=== PATIENT | female | born 1965 | race Caucasian/White ===

== ENCOUNTER → 2017-08-11 | Day surgery (SDC) | payer BC ==
[2017-08-04 15:06] VITALS: BMI 47.0
[~2017-08-11] VITALS: Ht 167.6 cm; Wt 131.8 kg
[~2017-08-11] MED LIST: CITA20TA9 PO; CITA40TA12 PO; HYDR50TA3 PO; LIDOCAINE HCL 2% 2 ML VIAL (20MG/ML) ONE; MIDAZOLAM HCL 1 MG/ML 2ML VIAL ONE; PANT40TA PO; PROPOFOL IV EMULSION 10 MG/ML 20 ML VIAL IV ONE; RANI150T3 PO; SODIUM CHLORIDE 0.9% 500ML 500 ML IV ONE
[2017-08-11 09:12] VITALS: Ht 167.6 cm; Wt 131.8 kg
--- NOTE | 2017-08-11 09:40 | Endo History and Physical ---
History & Physical Date of Service: Aug 11, 2017. Chief Complaint: SCREENING, GERD, DYSPHAGIA Referring Physician: DR. BARRIOS History of Present Illness Intermittent dysphagia for solids and liquids; epigastric pain; screening for colorectal cancer, average risk. Past Surgical History Hx Cardiac Surgery: No Hx Internal Defibrillator: No Hx Pacemaker: No Hx Abdominal Surgery: Yes ( X2, TUBAL LIGATION AND REVERSAL, HYSTER) Hx of Implantable Prosthesis: No Hx Post-Op Nausea and Vomiting: Yes Hx Cancer Surgery: No Hx Thoracic Surgery: No Hx Orthopedic: Yes (LOW BACK SURGERY) Hx Urinary Tract Surgery: No Family History None Social History Smoking Status: Never Smoker Hx Substance Use: No Hx Alcohol Use: No Allergies Coded Allergies: Penicillins (Verified Allergy, Unknown, RASH AND SWELLING, 08/04/17) "ALL 'CILLINS'" Sulfa Antibiotics (Verified Allergy, Unknown, RASH AND SWELLING, 08/04/17) Current Medications Reported Home Medications Medications Dose Route/Sig Max Daily Dose Days Date Category Zantac (Ranitidine HCl) 150 Mg Tab 150 Mg PO BID 08/04/17 Reported Hctz (Hydrochlorothiazide) 50 Mg Tab 50 Mg PO HS 08/04/17 Reported Protonix (Pantoprazole Sodium) 40 Mg Tab 40 Mg PO BID 08/04/17 Reported Celexa (Citalopram Hydrobromide) 40 Mg Tab 40 Mg PO HS 08/04/17 Reported Celexa (Citalopram Hydrobromide) 20 Mg Tab 20 Mg PO HS 08/04/17 Reported Vital Signs Weight (Kilograms): 131.82 Height (Feet): 5 Height (Inches): 6 Date Time Temp Pulse Resp B/P (MAP) Pulse Ox O2 Delivery O2 Flow Rate FiO2 08/11/17 09:21 36.9 78 18 145/98 (114) 97 Room Air Physical Exam General Appearance: WD/WN, no apparent distress, + obese Respiratory/Chest: Auscultation: breath sounds normal, no wheezing Cardiovascular: Heart Auscultation: RRR, no murmurs Assessment and Plan EGD and colonoscopy.
--- NOTE | 2017-08-11 10:03 | GI REPORT ---
Procedure Date: 08/11/2017 9:43 AM Procedure: Upper GI endoscopy Indications: Epigastric abdominal pain, Dysphagia Medicines: Monitored Anesthesia Care Complications: No immediate complications. Estimated blood loss: None. Estimated Blood Loss: Estimated blood loss: none. Procedure: Pre-Anesthesia Assessment: - Prior to the procedure, a History and Physical was performed, and patient medications, allergies and sensitivities were reviewed. The patient's tolerance of previous anesthesia was reviewed. - ASA Grade Assessment: II - A patient with mild systemic disease. After obtaining informed consent, the endoscope was passed under direct vision. Throughout the procedure, the patient's blood pressure, pulse, and oxygen saturations were monitored continuously. The scope was introduced through the mouth, and advanced to the third part of duodenum. The upper GI endoscopy was accomplished with ease. The patient tolerated the procedure well. Findings: No endoscopic abnormality was evident in the esophagus to explain the patient's complaint of dysphagia. It was decided, however, to proceed with dilation of the entire esophagus. A guidewire was placed and the scope was withdrawn. Dilation was performed with a Savary dilator with no resistance at 16 mm and 18 mm. The dilation site was examined following endoscope reinsertion and showed no change. The Z-line was regular and was found 37 cm from the incisors. Biopsies were taken with a cold forceps for histology. A small hiatal hernia was present. The entire examined stomach was normal. Biopsies were taken with a cold forceps for Helicobacter pylori testing. The examined duodenum was normal. Verification of patient identification for the specimens was done by the physician and nurse using the patient's name, date and medical record number. Impression: - No endoscopic esophageal abnormality to explain patient's dysphagia. Esophagus dilated to 54 Fr. - Z-line regular, 37 cm from the incisors. Biopsied. - Small hiatal hernia. - Normal stomach. Biopsied. - Normal examined duodenum. Recommendation: - Perform a colonoscopy today. Michael Fairbanks M.D. Michael Fairbanks MD 08/11/2017 10:03:09 AM This report has been signed electronically. Note Initiated On: 08/11/2017 9:43 AM I attest to the content of the Intraoperative Record and orders documented therein, exceptions below
--- NOTE | 2017-08-11 10:32 | GI REPORT ---
Procedure Date: 08/11/2017 9:58 AM Procedure: Colonoscopy Indications: Screening for colorectal malignant neoplasm Medicines: Monitored Anesthesia Care Complications: No immediate complications. Estimated blood loss: None. Estimated Blood Loss: Estimated blood loss: none. Procedure: Pre-Anesthesia Assessment: - Prior to the procedure, a History and Physical was performed, and patient medications, allergies and sensitivities were reviewed. The patient's tolerance of previous anesthesia was reviewed. - The risks and benefits of the procedure and the sedation options and risks were discussed with the patient. All questions were answered and informed consent was obtained. - ASA Grade Assessment: II - A patient with mild systemic disease. After I obtained informed consent, the scope was passed under direct vision. Throughout the procedure, the patient's blood pressure, pulse, and oxygen saturations were monitored continuously. The scope was introduced through the anus and advanced to the terminal ileum, with identification of the appendiceal orifice and IC valve. The colonoscopy was performed without difficulty. The patient tolerated the procedure well. The quality of the bowel preparation was excellent. The bowel preparation used was split dose MIralax. Findings: A 3 mm polyp was found in the rectum. The polyp was sessile. The polyp was removed with a cold snare. Resection and retrieval were complete. Multiple medium-mouthed diverticula were found in the left colon. Verification of patient identification for the specimen was done by the physician and nurse using the patient's name, date and medical record number. Impression: - One 3 mm polyp in the rectum, removed with a cold snare. Resected and retrieved. - Diverticulosis in the left colon. - The colon was otherwise normal to the terminal ileum with retroflexed views of the ascending colon and rectum. Recommendation: - Repeat colonoscopy in 5-10 years for surveillance based on pathology results. - Discharge patient to home (with escort). Michael Fairbanks M.D. Michael Fairbanks MD 08/11/2017 10:31:59 AM This report has been signed electronically. Note Initiated On: 08/11/2017 9:58 AM I attest to the content of the Intraoperative Record and orders documented therein, exceptions below
--- NOTE | 2017-08-11 10:33 | Discharge Instructions ---
Endoscopy Patient Instructions Date / Procedure(s) Performed Aug 11, 2017. Colonoscopy, EGD Allergy Information Coded Allergies: Penicillins (Verified Allergy, Unknown, RASH AND SWELLING, 08/04/17) "ALL 'CILLINS'" Sulfa Antibiotics (Verified Allergy, Unknown, RASH AND SWELLING, 08/04/17) Discharge Date / Findings Aug 11, 2017. Small colon polyp, removed; diverticulosis, small hiatal hernia; esophagus dilated to 54 Fr. Medication Instructions Restart Stopped Medication(s): Resume all medications today. Provider Instructions Activity Restrictions - No exercising or heavy lifting for 24 hours. - Do not drink alcohol the day of the procedure. - Do not drive a car or operate machinery until the day after the procedure. - Do not make any important decisions or sign important papers in 24 hours after the procedure. Following Day: - Return to full activity which may include returning to work/school. Diet Start your diet with liquids and light foods (jello, soup, juice, toast). Then eat your usual diet if not nauseated. Treatment For Common After Affects For mild abdominal pain, bloating, or excessive gas: - Rest - Eat lightly - Lie on right side Follow-Up Information Follow-up with DR. BARRIOS as scheduled Await pathology results. Anesthesia Information What You Should Know You have had a procedure that required some medicine to reduce anxiety and discomfort. This treatment is called moderate sedation. After receiving the treatment, you may be sleepy, but you will be able to breathe on your own. The effects of the treatment may last for several hours. Follow these instructions along with Activity/Diet recommendations noted above: * Do NOT do anything where dizziness or clumsiness would be dangerous. * Rest quietly at home today, then you can be up and about tomorrow. * Have a responsible person stay with you the rest of today. * You may have had an I.V. today. If so, you may take the dressing off later today. Recommendations Call your doctor if: * Trouble breathing * Continuous vomiting for more than 24 hours * Temperature above 101 degrees * Severe abdominal pain or bloating * Pain not relieved by pain medicine ordered * There is increased drainage or redness from any incision * A large amount of rectal bleeding greater than 2-3 tablespoons. (If you had a polyp/s removed or have hemorrhoids, a small amount of blood - from the rectum is to be expected.) * You have any unanswered questions or concerns. IN THE EVENT OF A SERIOUS EMERGENCY, GO TO THE NEAREST EMERGENCY ROOM Your discharge instructions were prepared by provider Michael Fairbanks. Patient Instructions Signature Page Pat Malik Patient (or Guardian) Signature/Date: I have read and understand the instructions given to me by my caregivers. Caregiver/RN/Doctor Signature/Date: The above-named patient and/or guardian has received patient instructions on this date. + Original Patient Signature Page (only) stays with chart. Please make copy for patient.
[2017-08-11 10:45] VITALS: BP 119/74; PULSE 72; O2SAT 95
--- NOTE | 2017-08-11 11:21 | Anesthesiology Progress Note ---
Anesthesia Post Op Note Date & Time Aug 11, 2017 at 11:21 Vital Signs Pain Intensity: 0 Vital Signs Past 12 Hours Date Time Temp Pulse Resp B/P (MAP) Pulse Ox O2 Delivery O2 Flow Rate FiO2 08/11/17 10:45 72 18 119/74 (89) 95 Room Air 08/11/17 10:30 78 16 101/69 (80) 96 Room Air 08/11/17 09:21 36.9 78 18 145/98 (114) 97 Room Air Notes Mental Status: alert / awake / arousable, participated in evaluation Pt Amnestic to Procedure: Yes Nausea / Vomiting: adequately controlled Pain: adequately controlled Airway Patency, RR, SpO2: stable & adequate BP & HR: stable & adequate Hydration State: stable & adequate Anesthetic Complications: no major complications apparent
== END | disposition home or self-care (01) ==
LOC: C.GI 08:36
PROVIDERS: ATTEND Internal Medicine Gastroenterology
DX: Z12.11 Encounter for screening for malignant neoplasm of colon (principal); R10.13 Epigastric pain; K62.1 Rectal polyp; K57.30 Diverticulosis of large intestine without perforation or abscess without bleeding; R13.10 Dysphagia, unspecified; K44.9 Diaphragmatic hernia without obstruction or gangrene; E66.01 Morbid (severe) obesity due to excess calories; Z68.42 Body mass index [BMI] 45.0-49.9, adult; Z79.899 Other long term (current) drug therapy; Z88.2 Allergy status to sulfonamides; Z88.0 Allergy status to penicillin; Z98.51 Tubal ligation status; Z90.710 Acquired absence of both cervix and uterus; Z98.890 Other specified postprocedural states

== ENCOUNTER 2025-04-03 16:49 | Observation (INO) ==
--- NOTE | 2025-04-03 17:33 | Emergency Department Note ---
Impression & Plan Peritonitis, Chronic renal failure, Leukocytosis, Elevated lactic acid level, Abnormal abdominal CT scan ED Provider Note NAME: NURYS CRAMER AGE: 60 SEX: F : 1965 ARRIVES VIA: Walk-In INFORMANT: [Patient] ED PROVIDER(S): [Mendoza Wagner MD] CHIEF COMPLAINT: Abnormal laboratories HISTORY OF PRESENT ILLNESS: The patient is a 60-year-old female who had a peritoneal dialysis catheter placed at the same time she had an abdominal wall hernia repaired. She has not yet started peritoneal dialysis. Patient 2 days ago had cultures taken from her peritoneal dialysis catheter, she grew Enterococcus. She is currently on an antibiotic and an antifungal--she has been for over a week. Because of the positive results, was referred to the ED for admission and IV antibiotic therapy. The patient does not have any fever or chills or cough or congestion. She has no abdominal pain. No burning with urination. PMHx/PSHx/Social Hx: See Below PHYSICAL EXAM: GENERAL: Patient is in no acute distress. HEENT: No acute trauma, normocephalic atraumatic, mucous membranes moist, no nasal congestion. NECK: No stridor, no adenopathy, no meningismus, trachea is midline. LUNGS: Clear to auscultation bilaterally, no wheeze, no rhonchi, breath sounds equal. HEART: Without murmurs gallops or rubs, regular rate and rhythm. ABDOMEN: Soft, nontender, no peritonitis. There is a peritoneal catheter in place. There is a healing surgical wound across the mid lower left abdomen without signs of infection or cellulitis. EXTREMITIES: No cyanosis, full range of motion of all the joints without pain or difficulty. NEUROLOGIC: Oriented x 3, no acute motor or sensory deficits, no focal weakness. SKIN: No jaundice, no diaphoresis. DIFFERENTIAL DIAGNOSIS: Peritonitis, bacteremia, UTI, renal failure, among others. EMERGENCY DEPARTMENT PROCEDURES: MEDICAL DECISION MAKING: There is a moderate leukocytosis, this of course could be consistent with infection. The patient has a very subtle anemia with a hemoglobin of 11.2. There is a normal platelet count. No bandemia. No coagulopathy. There is evidence for chronic renal failure with creatinine 4.2. No electrolyte abnormality in need of emergent correction. Lactic acid level is elevated at 4.5, this could be consistent with infection or, her renal disease. There was no worrisome liver enzyme elevation. Urinalysis does not show infection. ECG shows a sinus rhythm, no ischemia. Cardiac enzyme testing x 1 is not consistent with acute cardiac injury. Chest x-ray does not show pneumonia or CHF. Abdominal and pelvis CT shows the peritoneal dialysis catheter to be in place. No significant ascites. There was a renal mass seen for which further imaging was advised. She did have a potential small abscess across the anterior abdominal wall. On exam, the patient was not febrile or toxic. She had no abdominal pain. The patient was not given any IV fluids as, she has chronic renal failure and, cannot tolerate an excess amount of fluid. She is soon to be started on dialysis. The sepsis 30 cc/kg saline recommendation was not given because of concerns for progression to heart failure. The patient presents with positive cultures from her peritoneal dialysis catheter. She is already on oral antibiotics and antifungals. Given the circumstances, admission was recommended for IV antibiotic therapy and further workup. I spoke with the patient and family. I did speak with case management. The on- call hospitalist was consulted. Prior/Outside records/notes reviewed: None ECG per my interpretation: Indication was potential sepsis. The ECG shows a normal sinus rhythm with a rate of 89. There is no ST elevation, no PVC. QTc is 467. Continuous Cardiac Monitoring per my interpretation: An order was placed for continuous cardiac monitoring. The monitor shows a rate of 86 with normal sinus rhythm. Imaging/x-ray results per my interpretation: Chest x-ray does not show CHF or pneumonia. Chronic Medical/Social conditions affecting care: Currently undergoing workup for the need for peritoneal dialysis. Care/Management discussed with: Case management, the on-call hospitalist. Level of care consideration(s): After review of the information above and other included data: --I believe the patient requires escalation of care to admission DISPOSITION: Admission Past Med/Surg History Problem List (Updated 04/03/25 @ 23:26 by Mendoza Wagner MD) Abnormal abdominal CT scan (Acute) Elevated lactic acid level (Acute) Leukocytosis (Acute) Chronic renal failure (Acute) Peritonitis (Acute) Medical History HTN (hypertension) ESRD (end stage renal disease) Anxiety and depression Temporal giant cell arteritis Dyslipidemia CKD (chronic kidney disease), stage IV Surgical History History of hernia repair History of esophagogastroduodenoscopy (EGD) Family History Other Cancer Diabetes Social History Smoking Status: Never smoker Hx Alcohol Use: No Hx Substance Use: No Preferred Language: Kyrgyz Communication Ability: Effective Medical Examiner Required: No Beliefs That Will Affect Care: None Current Living Situation: Spouse Current Living Situation Comment: home with Other Information That Helps Us Care for You: No Feels Safe at Home: Yes Safety Concerns: Feels Safe At This Time Assistive Devices: Glasses Allergies Allergies Allergy/AdvReac Type Severity Reaction Status Date / Time Sulfa (Sulfonamide Allergy Severe EDEMA OF Verified 04/03/25 17:54 Antibiotics) AIRWAY Penicillins Allergy Intermediate RASH AND Verified 04/03/25 17:54 SWELLING Home Meds Home Medications Medication Instructions Recorded Confirmed allopurinol 100 mg tablet 200 mg PO DAILY 04/03/25 04/03/25 atorvastatin 20 mg tablet 20 mg PO DAILY 04/03/25 04/03/25 atovaquone 750 mg/5 mL oral 1,500 mg PO QAM 04/03/25 04/03/25 suspension calcium acetate(phosphat bind) 667 1,334 mg PO TIDM 04/03/25 04/03/25 mg capsule cholecalciferol (vitamin D3) 25 25 mcg PO DAILY 04/03/25 04/03/25 mcg (1,000 unit) capsule (Vitamin D3) citalopram 40 mg tablet (Celexa) 40 mg PO DAILY 04/03/25 04/03/25 clindamycin HCl 150 mg capsule 450 mg PO TID 04/03/25 04/03/25 famotidine 20 mg tablet 20 mg PO Q OTHER DAY 04/03/25 04/03/25 folic acid 1 mg tablet 1 mg PO DAILY 04/03/25 04/03/25 gabapentin 300 mg capsule 300 mg PO DAILY 04/03/25 04/03/25 lansoprazole 30 mg capsule,delayed 30 mg PO DAILYBB 04/03/25 04/03/25 release (Prevacid) lorazepam 0.5 mg tablet 0.5 mg PO HS PRN Anxiety 04/03/25 04/03/25 nystatin 100,000 unit/mL oral 5 ml mucous membrane QID 04/03/25 04/03/25 suspension ondansetron 4 mg disintegrating 4 mg PO Q8H PRN NAUSEA/VOMITING 04/03/25 04/03/25 tablet prednisone 10 mg tablet 30 mg PO DAILY 04/03/25 04/03/25 prednisone 5 mg tablet 5 mg PO DAILY 04/03/25 04/03/25 timolol maleate 0.5 % eye drops 1 drp OPB BID 04/03/25 04/03/25 tocilizumab 162 mg/0.9 mL 162 mg subcut WK 04/03/25 04/03/25 subcutaneous pen injector (Actemra ACTPen) torsemide 100 mg tablet 100 mg PO QAM 04/03/25 04/03/25 Results & Data (ED) Vital Signs Vital Signs - 24 hr 04/03/25 16:53 04/03/25 17:23 04/03/25 17:25 Pulse Rate 86 84 Respiratory Rate 20 16 Blood Pressure 151/88 H 129/87 Blood Pressure Mean 109 116 Blood Pressure Position Sitting Pulse Oximetry 98 97 96 Oxygen Delivery Method Room Air Room Air Room Air Sepsis Recent Fever Within 48 Hours No Sepsis New/Unexplained Change in Mental Status No Sepsis Action Taken by Nursing No Action Required 04/03/25 17:30 04/03/25 17:36 04/03/25 17:45 Pulse Rate 84 84 78 Respiratory Rate 16 16 Blood Pressure 156/88 H 144/85 H Blood Pressure Mean 100 106 Blood Pressure Position Pulse Oximetry 97 95 Oxygen Delivery Method Room Air Room Air Sepsis Recent Fever Within 48 Hours Sepsis New/Unexplained Change in Mental Status Sepsis Action Taken by Nursing 04/03/25 18:00 04/03/25 18:15 04/03/25 18:27 Pulse Rate 76 75 75 Respiratory Rate 18 16 16 Blood Pressure 116/84 133/87 140/94 Blood Pressure Mean 100 111 108 Blood Pressure Position Pulse Oximetry 95 95 95 Oxygen Delivery Method Room Air Room Air Room Air Sepsis Recent Fever Within 48 Hours Sepsis New/Unexplained Change in Mental Status Sepsis Action Taken by Usp Medications Current Medication List: was personally reviewed by me Laboratory Data Attestation: I reviewed the patient's lab results. 04/03/25 17:27 04/03/25 17:27 Lab Results 04/03/25 Range/Units 17:27 WBC 17.44 H (4.8-10.8) K/ul RBC 3.49 L (4.20-5.40) M/uL Hgb 11.2 L (12.0-16.0) g/dl Hct 34.0 L (37.0-47.0) % MCV 97.4 (80.0-100.0) fL MCH 32.1 (25.0-34.0) pg MCHC 32.9 (32.0-36.0) g/dL RDW Std Deviation 49.3 H (36.4-46.3) fL RDW Coeff of Kylah 14.1 (11.5-14.5) % Plt Count 243 (130-400) K/uL MPV 12.4 (9.4-12.4) fL Immature Gran % (Auto) 0.5 % Neut % (Auto) 85.0 % Lymph % (Auto) 12.3 % [place] % (Auto) 2.1 % Eos % (Auto) 0.0 % Baso % (Auto) 0.1 % Neut # (Auto) 14.81 H (1.40-6.50) K/uL Lymph # (Auto) 2.15 (1.20-3.40) K/uL [place] # (Auto) 0.37 (0.11-0.59) K/uL Eos # (Auto) 0.00 (0.00-0.50) K/uL Baso # (Auto) 0.02 (0.00-0.20) K/uL Immature Gran # (Auto) 0.09 (0.01-0.20) K/uL PT 10.8 (9.0-12.0) Seconds INR 1.0 (0.9-1.1) APTT 23 (21-31) Seconds PTT Ratio 0.8 Sodium 140 (136-145) mmol/L Potassium 3.9 (3.5-5.1) mmol/L Chloride 102 (98-107) mmol/L Carbon Dioxide 20 L (21-32) mmol/L Anion Gap 18 H (3-11) BUN 101 H (6-23) mg/dl Creatinine 4.20 H (0.6-1.2) mg/dl Est Cr Clr Drug Dosing 19.4 ml/min eGFR 11.38 BUN/Creatinine Ratio 24.0 H (10-20) Glucose 148 H (70-99(Fasting)) mg/dl Lactate 4.5 H* (0.4-2.0) mmol/L Calcium 8.6 (8.6-10.3) mg/dl Magnesium 2.3 (1.7-2.4) mg/dl Total Bilirubin 0.3 (0.2-1.0) mg/dl AST 8 L (13-39) U/L ALT 12 (7-52) U/L Alkaline Phosphatase 84 (34-104) U/L Troponin I High Sens 8.3 (0-14) pg/ml Total Protein 7.7 (6.0-8.3) gm/dl Albumin 3.9 (3.4-5.0) gm/dl Globulin 3.8 (2.5-4.0) gm/dl Albumin/Globulin Ratio 1.0 (0.9-2) Procalcitonin 0.17 (0-0.5) ng/ml Administered Medications Daptomycin 600 mg/ Syringe 12 mls @ 6 mls/min IV Q48H AWA; Protocol Stop: 04/13/25 19:29 Last Admin: 04/03/25 19:40 Dose: 6 mls/min Documented By: ELBA Aztreonam 2,000 mg/ Dextrose 100 mls @ 100 mls/hr IV Q12H AWA; Protocol Stop: 04/13/25 19:29 Last Infusion: 04/03/25 20:49 Dose: Infused Documented By: Admin: 04/03/25 19:40 Dose: 100 mls/hr Documented By: ELBA Lorazepam (Lorazepam 0.5 Mg Tab) 0.5 mg PO HS PRN PRN Reason: Anxiety Stop: 05/03/25 21:40 Last Admin: 04/03/25 22:34 Dose: 0.5 mg Documented By: CHIP Nystatin (Nystatin Susp 500,000 U/5 Ml Udc) 5 ml PO QID AWA Stop: 04/13/25 21:40 Last Admin: 04/03/25 22:33 Dose: 5 ml Documented By: CHIP Timolol Maleate (Timolol Maleate 0.5% Op Soln 5 Ml Btl) 1 drops OPB BID AWA Stop: 05/03/25 21:40 Last Admin: 04/03/25 22:33 Dose: 1 drops Documented By: CHIP Discontinued Medications Labetalol HCl (Labetalol Hcl Iv 5 Mg/Ml 20ml) 5 mg IV NOW STA Stop: 04/03/25 22:07 Last Admin: 04/03/25 22:34 Dose: 5 mg Documented By: CHIP Imaging Data Radiologist's Impression: Chest X-Ray 04/03/25 17:00 Technique: A frontal view of the chest was obtained Findings: There are no confluent pulmonary infiltrates. The heart size is within normal limits. No pleural effusion or pneumothorax is seen. There is no definite pulmonary nodule. No fracture is noted. No foreign body is seen Impression: No active disease Electronically signed by Heriberto Laurent 04-03-2025 6:01 PM Abdomen/Pelvis CT 04/03/25 18:01 Clinical History: Peritoneal dialysis catheter infection Technique: Axial computed tomography images were obtained of the abdomen and pelvis without intravenous contrast. Findings: The liver is overall of normal size, attenuation, and contour with no sign of cirrhosis or significant fatty infiltration. No definite liver mass lesion is seen on this noncontrast study. The gallbladder has been removed. No bile duct dilatation is noted. The spleen is of normal size. No focal splenic lesion is evident. The pancreas appears normal with no sign of acute or chronic pancreatitis and no mass lesion noted. The pancreatic duct is of normal caliber. The adrenal glands appear unremarkable. No renal or proximal ureteral calculi are seen. There is no hydronephrosis or perinephric stranding. There is a 2.5 cm mass of the right kidney that is predominantly soft tissue attenuation but has some fat content, suggestive of an angiomyolipoma. There is a 1.8 cm hyperdense right renal lesion and there is a suspected 2.6 cm hyperdense left renal lesion The aorta is of normal caliber. No abdominal adenopathy is seen. There is a 3 x 1.5 cm collection of fluid and air in the anterior abdominal wall, suggestive of an abscess The stomach appears normal. There is no sign of small bowel obstruction. There is diverticulosis without evidence of diverticulitis. There is no sign of appendicitis. No free intraperitoneal fluid or air is identified. There is a peritoneal dialysis catheter. No distal ureteral or bladder calculi are seen. No obvious bladder mass lesion is evident. The iliac arteries are of normal caliber. No pelvic adenopathy is noted. The uterus has been removed There is a small left pleural effusion. There is subsegmental atelectasis in both lower lobes. Mild thoracolumbar degenerative disc disease is seen. There are apparent old fractures of the inferior pubic rami bilaterally. No focal osseous lesion is seen Impression: 1. 3 x 1.5 cm suspected soft tissue abscess in the anterior abdominal wall 2. Peritoneal dialysis catheter. No ascites or intra-peritoneal fluid collection is seen 3. Right renal mass that may represent an angiomyolipoma. There are also bilateral hyperdense renal lesions that may represent proteinaceous or hemorrhagic cysts but are indeterminate in nature. Renal protocol abdominal CT or MRI with and without contrast could be obtained for further evaluation 4. Diverticulosis without evidence of diverticulitis 5. Small left pleural effusion ACT 112: Positive. There are findings on this exam that require communication between the performing entity and the patient following Patient Test Result Information Act ([place] ACT 112) guidelines. Electronically signed by Heriberto Laurent 04-03-2025 6:41 PM Discharge Plan Visit Data Chief Complaint: Urinary Symptoms Stated Complaint: KIDNEY BACTERIA ED Provider: Mendoza Wagner Discharge Problem: Peritonitis, Chronic renal failure, Leukocytosis, Elevated lactic acid level, Abnormal abdominal CT scan Patient Disposition: Admitted As Inpatient Condition: Fair Discharge Instructions Interventions: ED Discharge Assessment Last Done: 04/03/25 21:00 Discharge Problem: Chronic renal failure Qualifiers: Chronic kidney disease stage: unspecified stage Qualified Code(s): N18.9 - Chronic kidney disease, unspecified Leukocytosis Qualifiers: Leukocytosis type: unspecified Qualified Code(s): D72.829 - Elevated white blood cell count, unspecified
[2025-04-03 17:39] LABS: Hematocrit (blood only) 34.0 % (37.0-47.0); Hemoglobin 11.2 g/dl (12.0-16.0); Immature Granulocytes # (auto) 0.09 K/uL (0.01-0.20); Immature Granulocytes % (auto) 0.5 %; Mean Corpuscular Hemoglobin 32.1 pg (25.0-34.0); Mean Corpuscular Volume 97.4 fL (80.0-100.0); Platelet Count 243 K/uL (130-400); RDW Standard Deviation 49.3 fL (36.4-46.3); Red Blood Count 3.49 M/uL (4.20-5.40); White Blood Count 17.44 K/ul (4.8-10.8)
[2025-04-03 17:58] LABS: Chloride 102.0 mmol/L (98-107); Potassium 3.9 mmol/L (3.5-5.1); Sodium 140.0 mmol/L (136-145)
[2025-04-03 17:59] LABS: Alanine Aminotransferase 12.0 U/L (7-52); Albumin Globulin Ratio 1.0 (0.9-2); Albumin Level 3.9 gm/dl (3.4-5.0); Alkaline Phosphatase 84.0 U/L (34-104); Anion Gap 18.0 (3-11); Bilirubin,Total 0.3 mg/dl (0.2-1.0); Blood Urea Nitrogen 101.0 mg/dl (6-23); Calcium 8.6 mg/dl (8.6-10.3); Carbon Dioxide 20.0 mmol/L (21-32); Creatinine Clr Calc Pharmacy 19.4 ml/min; Globulin 3.8 gm/dl (2.5-4.0); Glucose 148.0 mg/dl (70-99(Fasting)); Magnesium 2.3 mg/dl (1.7-2.4); Total Protein 7.7 gm/dl (6.0-8.3)
--- NOTE | 2025-04-03 18:01 | XRay Report ---
Technique: A frontal view of the chest was obtained Findings: There are no confluent pulmonary infiltrates. The heart size is within normal limits. No pleural effusion or pneumothorax is seen. There is no definite pulmonary nodule. No fracture is noted. No foreign body is seen Impression: No active disease Electronically signed by Heriberto Laurent 04-03-2025 6:01 PM
[2025-04-03 18:10] LABS: INR 1.0 (0.9-1.1); Partial Thromboplastin Time 23 Seconds (21-31); Prothrombin Time 10.8 Seconds (9.0-12.0)
--- NOTE | 2025-04-03 18:38 | History & Physical Report ---
Date of Service April 03, 2025 Assessment & Plan (1) Leukocytosis: (2) Peritonitis: Plan: #Concern for Peritonitis #ESRD #Peritoneal dialysis catheter Patient is 60 year old female with PMH ESRD, not on dialysis yet, HTN, HLD, gout, GERD, giant cell arteritis, anxiety, depression, morbid obesity and others listed below presented to ER with concern for peritoneal infection. 03/20/25 had laparoscopic Insertion Intraperitoneal Catheter and umbilical Hernia Repair at [facility]. Later in her course peritoneal nurse had found that patient was found to be missing cap from her PD catheter postsurgery and it was uncertain how long this was displaced. Patient was seen at [facility] ER 03/25/25 and general surgery was consulted and felt patient did not require any interventions or intraperitoneal antibiotics at that time. 03/25/2025 Nephrology, Dr. Moreland recommended oral clindamycin, nystatin. Pt noted to have purulent drainage at PD cath exit site 04/01/2025 PD cath exit site culture +moderate Enterococcus species, few gram- negative bacilli 04/02/25 outpatient general surgery visit with Dr Ramiro Cooney felt pt doing well Today in In ER WBC: 17, lactate: 4.5-->1.2 without any IVF or other medications given. UA unremarkable Pt denies fever/chills, N/V/D, abdominal pain Today I Spoke with Dr. Cooney on phone regarding patient. She recommends Discontinuing prior clindamycin. Recommends continuing nystatin. Recommends az treonam and daptomycin IV today. She plans to start peritoneal antibiotics tomorrow. She requests CT abdomen pelvis CT abd/pelvis pending Continue renal meds, torsemide CBC, BMP in am #Temporal arteritis On prolonged prednisone taper Currently on 35 mg daily, will decrease to 30 mg daily on 04/08/25 x 1 week followed by 25 mg daily x 1 week and continue to taper. (If pt here prolonged time will need to adjust prednisone dosing in hospital system) To be on Actemra once weekly PCP prophylaxis and on atovaquone # Dyslipidemia Hold atorvastatin while on daptomycin # GERD Continue PPI # Gout Continue allopurinol # Anxiety and depression continue citalopram DVT Prophylaxis SCDs for now Admit med tele Full Code as per discussion with pt Follows with Maida Ocampo PA-C for routine care Pt was seen and care coordinated with Dr Grimm. See addendum I spent a total of 72 minutes reviewing notes, outpatient records, labs, medication, coordinating, documenting and providing care for this patient excluding time spent in the performance of separately billed services and excluding time spent by another provider/QHP. History of Present Illness Chief Complaint: Sent in for evaluation by nephrology Primary Care Provider: Veronica Lerner PA-C Patient is 60 year old female with PMH ESRD, not on dialysis yet, HTN, HLD, gout, GERD, giant cell arteritis, anxiety, depression, morbid obesity and others listed below presented to ER with concern for peritoneal infection. Per chart review on 03/20/25 had laparoscopic Insertion Intraperitoneal Catheter and umbilical Hernia Repair at [facility]. Later in her course peritoneal nurse had found that patient was found to be missing cap from her PD catheter postsurgery and it was uncertain how long this was displaced. Patient was seen at [facility] ER 03/25/25 and general surgery was consulted and felt patient did not require any interventions or intraperitoneal antibiotics at that time. Per outpatient nephrology note on 03/25/2025 Dr. Moreland recommended oral clindamycin, nysta tin. Patient was sent to hospital today with concern for positive culture of purulent drainage from PD cath site. History of giant cell arteritis and is currently on prolonged steroid taper and patient is on PCP prophylaxis as well. Per outpatient chart review patient seen general surgery office at [facility], Dr. Ramiro Cooney on 04/02/2025. Patient reports still makes urine. Denies hematuria, dysuria, urinary frequency. Denies fever/chills, diaphoresis, N/V/D/C, AYERS, dizziness, CP, SOB, orthopnea, palpitations, cough, sore throat, rhinorrhea, abdominal pain, weakness, extremity edema, rashes, urinary symptoms. Allergies Allergy/AdvReac Type Severity Reaction Status Date / Time Sulfa (Sulfonamide Allergy Severe EDEMA OF Verified 04/03/25 17:54 Antibiotics) AIRWAY Penicillins Allergy Intermediate RASH AND Verified 04/03/25 17:54 SWELLING Home Medications Medication Instructions Recorded Confirmed Type allopurinol 100 mg tablet 200 mg PO DAILY 04/03/25 04/03/25 History atorvastatin 20 mg tablet 20 mg PO DAILY 04/03/25 04/03/25 History atovaquone 750 mg/5 mL oral 1,500 mg PO QAM 04/03/25 04/03/25 History suspension calcium acetate(phosphat bind) 667 1,334 mg PO TIDM 04/03/25 04/03/25 History mg capsule cholecalciferol (vitamin D3) 25 25 mcg PO DAILY 04/03/25 04/03/25 History mcg (1,000 unit) capsule (Vitamin D3) citalopram 40 mg tablet (Celexa) 40 mg PO DAILY 04/03/25 04/03/25 History clindamycin HCl 150 mg capsule 450 mg PO TID 04/03/25 04/03/25 History famotidine 20 mg tablet 20 mg PO Q OTHER DAY 04/03/25 04/03/25 History folic acid 1 mg tablet 1 mg PO DAILY 04/03/25 04/03/25 History gabapentin 300 mg capsule 300 mg PO DAILY 04/03/25 04/03/25 History lansoprazole 30 mg capsule,delayed 30 mg PO DAILYBB 04/03/25 04/03/25 History release (Prevacid) lorazepam 0.5 mg tablet 0.5 mg PO HS PRN Anxiety 04/03/25 04/03/25 History nystatin 100,000 unit/mL oral 5 ml mucous membrane QID 04/03/25 04/03/25 History suspension ondansetron 4 mg disintegrating 4 mg PO Q8H PRN NAUSEA/VOMITING 04/03/25 04/03/25 History tablet prednisone 10 mg tablet 30 mg PO DAILY 04/03/25 04/03/25 History prednisone 5 mg tablet 5 mg PO DAILY 04/03/25 04/03/25 History timolol maleate 0.5 % eye drops 1 drp OPB BID 04/03/25 04/03/25 History tocilizumab 162 mg/0.9 mL 162 mg subcut WK 04/03/25 04/03/25 History subcutaneous pen injector (Actemra ACTPen) torsemide 100 mg tablet 100 mg PO QAM 04/03/25 04/03/25 History Past Med/Surg History Problem List S/P hernia repair Bilateral renal masses Peritonitis associated with peritoneal dialysis Abnormal abdominal CT scan (Acute) Elevated lactic acid level (Acute) Leukocytosis (Acute) Chronic renal failure (Acute) Peritonitis (Acute) Medical History HTN (hypertension) ESRD (end stage renal disease) Anxiety and depression Temporal giant cell arteritis Dyslipidemia CKD (chronic kidney disease), stage IV Surgical History History of hernia repair History of esophagogastroduodenoscopy (EGD) Family History Other Cancer Diabetes Social History Smoking Status: Never smoker Hx Alcohol Use: No Hx Substance Use: No Preferred Language: Uzbek Communication Ability: Effective Lighthouse Keeper Required: No Beliefs That Will Affect Care: None Current Living Situation: Spouse Current Living Situation Comment: home with Other Information That Helps Us Care for You: No Feels Safe at Home: Yes Safety Concerns: Feels Safe At This Time Assistive Devices: Glasses Review of Systems Review of Systems: All systems reviewed & are unremarkable except as noted in HPI & below Physical Exam Physical Exam: General: no distress, obese Head: normocephalic, atraumatic Eyes: conjunctiva non-injected, anicteric ENT: normal inspection external ears, nose, mucous membranes moist Neck: supple, trachea midline, non-tender Lungs: clear, no respiratory distress, no wheezing/rhonchi/rales CV: RRR, no murmur, no pretibial edema Abd: protuberant, +PD cath site with dressing in place, +incision abdomen without erythema, normal BS, soft, non-tender Ext: no cyanosis, no calf tenderness Neuro: A&O x 3, no focal deficits noted, normal affect Skin: warm, dry Results & Data Results & Data Vital Signs (Past 12 Hours) Vital Signs Pulse Resp BP Pulse Ox O2 Del Method 04/03/25 18:27 75 16 140/94 95 Room Air 04/03/25 18:15 75 16 133/87 95 Room Air 04/03/25 18:00 76 18 116/84 95 Room Air 04/03/25 17:45 78 16 144/85 H 95 Room Air 04/03/25 17:36 84 04/03/25 17:30 84 16 156/88 H 97 Room Air 04/03/25 17:25 96 Room Air 04/03/25 17:23 84 16 129/87 97 Room Air 04/03/25 16:53 86 20 151/88 H 98 Room Air Laboratory Results 04/03/25 04/03/25 04/03/25 Range/Units 19:07 19:03 17:27 WBC 17.44 H (4.8-10.8) K/ul RBC 3.49 L (4.20-5.40) M/uL Hgb 11.2 L (12.0-16.0) g/dl Hct 34.0 L (37.0-47.0) % MCV 97.4 (80.0-100.0) fL MCH 32.1 (25.0-34.0) pg MCHC 32.9 (32.0-36.0) g/dL RDW Std Deviation 49.3 H (36.4-46.3) fL RDW Coeff of [place] 14.1 (11.5-14.5) % Plt Count 243 (130-400) K/uL MPV 12.4 (9.4-12.4) fL Immature Gran % (Auto) 0.5 % Neut % (Auto) 85.0 % Lymph % (Auto) 12.3 % [place] % (Auto) 2.1 % Eos % (Auto) 0.0 % Baso % (Auto) 0.1 % Neut # (Auto) 14.81 H (1.40-6.50) K/uL Lymph # (Auto) 2.15 (1.20-3.40) K/uL [place] # (Auto) 0.37 (0.11-0.59) K/uL Eos # (Auto) 0.00 (0.00-0.50) K/uL Baso # (Auto) 0.02 (0.00-0.20) K/uL Immature Gran # (Auto) 0.09 (0.01-0.20) K/uL PT 10.8 (9.0-12.0) Seconds INR 1.0 (0.9-1.1) APTT 23 (21-31) Seconds PTT Ratio 0.8 Sodium 140 (136-145) mmol/L Potassium 3.9 (3.5-5.1) mmol/L Chloride 102 (98-107) mmol/L Carbon Dioxide 20 L (21-32) mmol/L Anion Gap 18 H (3-11) BUN 101 H (6-23) mg/dl Creatinine 4.20 H (0.6-1.2) mg/dl Est Cr Clr Drug Dosing 19.4 ml/min eGFR 11.38 BUN/Creatinine Ratio 24.0 H (10-20) Glucose 148 H (70-99(Fasting)) mg/dl Lactate 1.2 4.5 H* (0.4-2.0) mmol/L Calcium 8.6 (8.6-10.3) mg/dl Magnesium 2.3 (1.7-2.4) mg/dl Total Bilirubin 0.3 (0.2-1.0) mg/dl AST 8 L (13-39) U/L ALT 12 (7-52) U/L Alkaline Phosphatase 84 (34-104) U/L Troponin I High Sens 8.3 (0-14) pg/ml Total Protein 7.7 (6.0-8.3) gm/dl Albumin 3.9 (3.4-5.0) gm/dl Globulin 3.8 (2.5-4.0) gm/dl Albumin/Globulin Ratio 1.0 (0.9-2) Procalcitonin 0.17 (0-0.5) ng/ml Urine Color Yellow Urine Appearance Clear (Clear) Urine pH 5.5 (4.5-7.5) Ur Specific [place] 1.013 (1.000-1.030) Urine Protein Negative (Negative) Urine Glucose (UA) Negative (Negative) Urine Ketones Negative (Negative) Urine Blood Negative (Negative) Urine Nitrite Negative (Negative) Urine Bilirubin Negative (Negative) Urine Urobilinogen Negative (Negative) Ur Leukocyte Esterase Negative (Negative) Urine Comment Diagnostic Findings Chest X-Ray 04/03/25 17:00 Technique: A frontal view of the chest was obtained Findings: There are no confluent pulmonary infiltrates. The heart size is within normal limits. No pleural effusion or pneumothorax is seen. There is no definite pulmonary nodule. No fracture is noted. No foreign body is seen Impression: No active disease Electronically signed by Heriberto Laurent 04-03-2025 6:01 PM Abdomen/Pelvis CT 04/03/25 18:01 Clinical History: Peritoneal dialysis catheter infection Technique: Axial computed tomography images were obtained of the abdomen and pelvis without intravenous contrast. Findings: The liver is overall of normal size, attenuation, and contour with no sign of cirrhosis or significant fatty infiltration. No definite liver mass lesion is seen on this noncontrast study. The gallbladder has been removed. No bile duct dilatation is noted. The spleen is of normal size. No focal splenic lesion is evident. The pancreas appears normal with no sign of acute or chronic pancreatitis and no mass lesion noted. The pancreatic duct is of normal caliber. The adrenal glands appear unremarkable. No renal or proximal ureteral calculi are seen. There is no hydronephrosis or perinephric stranding. There is a 2.5 cm mass of the right kidney that is predominantly soft tissue attenuation but has some fat content, suggestive of an angiomyolipoma. There is a 1.8 cm hyperdense right renal lesion and there is a suspected 2.6 cm hyperdense left renal lesion The aorta is of normal caliber. No abdominal adenopathy is seen. There is a 3 x 1.5 cm collection of fluid and air in the anterior abdominal wall, suggestive of an abscess The stomach appears normal. There is no sign of small bowel obstruction. There is diverticulosis without evidence of diverticulitis. There is no sign of appendicitis. No free intraperitoneal fluid or air is identified. There is a peritoneal dialysis catheter. No distal ureteral or bladder calculi are seen. No obvious bladder mass lesion is evident. The iliac arteries are of normal caliber. No pelvic adenopathy is noted. The uterus has been removed There is a small left pleural effusion. There is subsegmental atelectasis in both lower lobes. Mild thoracolumbar degenerative disc disease is seen. There are apparent old fractures of the inferior pubic rami bilaterally. No focal osseous lesion is seen Impression: 1. 3 x 1.5 cm suspected soft tissue abscess in the anterior abdominal wall 2. Peritoneal dialysis catheter. No ascites or intra-peritoneal fluid collection is seen 3. Right renal mass that may represent an angiomyolipoma. There are also bilateral hyperdense renal lesions that may represent proteinaceous or hemorrhagic cysts but are indeterminate in nature. Renal protocol abdominal CT or MRI with and without contrast could be obtained for further evaluation 4. Diverticulosis without evidence of diverticulitis 5. Small left pleural effusion ACT 112: Positive. There are findings on this exam that require communication between the performing entity and the patient following Patient Test Result Information Act ([place] ACT 112) guidelines. Electronically signed by Heriberto Laurent 04-03-2025 6:41 PM Medications Administered Current Inpatient Medications Daptomycin 600 mg/ Syringe 12 mls @ 6 mls/min IV Q48H [facility]; Protocol Stop: 04/13/25 19:29 Last Admin: 04/03/25 19:40 Dose: 6 mls/min Aztreonam 2,000 mg/ Dextrose 100 mls @ 100 mls/hr IV Q12H [facility]; Protocol Stop: 04/13/25 19:29 Last Admin: 04/03/25 19:40 Dose: 100 mls/hr Supervising Physician Co-Signing Physician Notes Pt seen and examined by me, care coordinated w/ JAlexandria Chua PA-C, pls refer to her note above for further detail. Pt is 60 yo F w/ ESRD, not on dialysis yet, HTN, HLD, gout, GERD, giant cell arteritis, anxiety, depression, morbid obesity presents with concern for peritoneal infection. Per chart review on 03/20/25 had laparoscopic Insertion Intraperitoneal Catheter and umbilical Hernia Repair at [facility]. Later in her course peritoneal nurse had found that patient was found to be missing cap from her PD catheter postsurgery and it was uncertain how long this was displaced. Patient was seen at [facility] ER 03/25/25 and general surgery was consulted and felt patient did not require any interventions or intraperitoneal antibiotics at that time. Per outpatient nephrology note on 03/25/2025 Dr. Moreland recommended oral clindamycin, nystatin. Patient was sent to hospital today. Discussed with Dr. Moreland on phone - she recommends obtaining CT abd/pelvis w/o contrast, discontinuing prior clindamycin. Recommends continuing nystatin. Recommends aztreonam and daptomycin IV today - discussed appropriate dose w/ pharmacy. In ER found to have elevated WBC, also has hx of giant cell arteritis and is currently on steroid taper. Also found to have elevated lactate of 4.5, which was normal at 1.2 on repeat, without any intervention. Currently pt is sitting up in bed in NAD, she is awake, alert, oriented , answers appropriately. Overall says she feels well. Denies any fevers at home. Continues to make urine, and denies any dysuria. No significant abd. pain, surgical scar noted and seems to be healing well. PD catheter noted w/ dressings applied. lungs clear to auscultation. Pt is moving extremities w/o any difficulty. CT abd/pelvis ordered. Abx - dapto, aztreonam ordered - dose adjusted per pharmacy. Dr. Moreland updated. Cont. to closely monitor. MD Sirisha (1) Leukocytosis Leukocytosis type: unspecified Qualified Code(s): D72.829 - Elevated white blood cell count, unspecified
--- NOTE | 2025-04-03 18:42 | CT Scan Report ---
Clinical History: Peritoneal dialysis catheter infection Technique: Axial computed tomography images were obtained of the abdomen and pelvis without intravenous contrast. Findings: The liver is overall of normal size, attenuation, and contour with no sign of cirrhosis or significant fatty infiltration. No definite liver mass lesion is seen on this noncontrast study. The gallbladder has been removed. No bile duct dilatation is noted. The spleen is of normal size. No focal splenic lesion is evident. The pancreas appears normal with no sign of acute or chronic pancreatitis and no mass lesion noted. The pancreatic duct is of normal caliber. The adrenal glands appear unremarkable. No renal or proximal ureteral calculi are seen. There is no hydronephrosis or perinephric stranding. There is a 2.5 cm mass of the right kidney that is predominantly soft tissue attenuation but has some fat content, suggestive of an angiomyolipoma. There is a 1.8 cm hyperdense right renal lesion and there is a suspected 2.6 cm hyperdense left renal lesion The aorta is of normal caliber. No abdominal adenopathy is seen. There is a 3 x 1.5 cm collection of fluid and air in the anterior abdominal wall, suggestive of an abscess The stomach appears normal. There is no sign of small bowel obstruction. There is diverticulosis without evidence of diverticulitis. There is no sign of appendicitis. No free intraperitoneal fluid or air is identified. There is a peritoneal dialysis catheter. No distal ureteral or bladder calculi are seen. No obvious bladder mass lesion is evident. The iliac arteries are of normal caliber. No pelvic adenopathy is noted. The uterus has been removed There is a small left pleural effusion. There is subsegmental atelectasis in both lower lobes. Mild thoracolumbar degenerative disc disease is seen. There are apparent old fractures of the inferior pubic rami bilaterally. No focal osseous lesion is seen Impression: 1. 3 x 1.5 cm suspected soft tissue abscess in the anterior abdominal wall 2. Peritoneal dialysis catheter. No ascites or intra-peritoneal fluid collection is seen 3. Right renal mass that may represent an angiomyolipoma. There are also bilateral hyperdense renal lesions that may represent proteinaceous or hemorrhagic cysts but are indeterminate in nature. Renal protocol abdominal CT or MRI with and without contrast could be obtained for further evaluation 4. Diverticulosis without evidence of diverticulitis 5. Small left pleural effusion ACT 112: Positive. There are findings on this exam that require communication between the performing entity and the patient following Patient Test Result Information Act ([place] ACT 112) guidelines. Electronically signed by Heriberto Laurent 04-03-2025 6:41 PM
[2025-04-03 19:20] LABS: Appearance Urine Clear (Clear); Glucose Urine UA Negative (Negative)
[2025-04-03] MEDS: DAPTOmycin 600 MG in SYRINGE 0 ML IV SCH (19:40)
[2025-04-03] MEDS: AZTREONAM 2,000 MG in DEXTROSE 5% MINI-B 100 ML IV SCH (19:40)
[2025-04-03] MEDS ORDERED: POLYETHYLENE (MIRALAX) 17 GM PACK PO PRN (21:41)
[2025-04-03] MEDS ORDERED: LABETALOL HCL IV 5 MG/ML 20ML IV PRN (22:06)
[2025-04-03] MEDS: NYSTATIN SUSP 500,000 U/5 ML UDC PO SCH (22:33)
[2025-04-03] MEDS: TIMOLOL MALEATE 0.5% OP SOLN 5 ML BTL OPB SCH (22:33)
[2025-04-03] MEDS: LORazepam 0.5 MG TAB PO PRN (22:34)
[2025-04-03] MEDS: LABETALOL HCL IV 5 MG/ML 20ML IV STA (22:34)
[2025-04-04 06:08] LABS: Hematocrit (blood only) 30.8 % (37.0-47.0); Hemoglobin 9.8 g/dl (12.0-16.0); Immature Granulocytes # (auto) 0.05 K/uL (0.01-0.20); Immature Granulocytes % (auto) 0.3 %; Mean Corpuscular Hemoglobin 31.4 pg (25.0-34.0); Mean Corpuscular Volume 98.7 fL (80.0-100.0); Platelet Count 195 K/uL (130-400); RDW Standard Deviation 50.4 fL (36.4-46.3); Red Blood Count 3.12 M/uL (4.20-5.40); White Blood Count 15.20 K/ul (4.8-10.8)
[2025-04-04 06:25] LABS: Anion Gap 14.0 (3-11); Blood Urea Nitrogen 96.0 mg/dl (6-23); Calcium 8.3 mg/dl (8.6-10.3); Carbon Dioxide 22.0 mmol/L (21-32); Chloride 105.0 mmol/L (98-107); Creatinine Clr Calc Pharmacy 20.5 ml/min; Glucose 93.0 mg/dl (70-99(Fasting)); Potassium 3.7 mmol/L (3.5-5.1); Sodium 141.0 mmol/L (136-145)
--- NOTE | 2025-04-04 07:50 | Nephrology Consultation ---
Date of Consultation April 04, 2025 Assessment & Plan (1) Peritonitis associated with peritoneal dialysis: complex/polymicrobial PD peritonitis >> growing as of 04/04 moderate Enterococcus species and few Pseudomonas aeruginosa from serosanguinous fluid leakage around PD catheter exit site on 04/01; ? ant abd wall abscess but believe pt remains w/o abdominal or constitutional symptoms pt noted 5 days post op to have no cap on PD catheter of unknown duration; s/p transfer set change x 2 and 1 week of oral abtx for today will do -IP daptomycin 200 mg in 500 mL of 2.5% dextrose to dwell 6 hours and -trial ceftazidime IV (hx of swelling/hives remotely w/ PCNs >> anticipate less than 5% risk of cross reaction to cephalosporins >>will not be draining the PD fluid but will let it be absorbed B/C OF RECENT COMPLEX HERNIA REPAIR PT MUST LIE FLAT FOR 6 HOURS AFTER INFUSION OF LOW VOLUME IP ABTX; may try elevating head above feet but keep her on the whole flat /do not engage abdominal muscles > anticipate 3 weeks of antibiotic therapy >>>must have nystatin /antifungal prophylaxis against fungal PD peritonitis w/ antibiotic therapy -to do urgent start PD training starting Sunday 04/08 w/ very low volume (500 mL) exchanges for IP abtx ONLY -f/u pending cxs adn sensitivities >> goal would be IP vanc + Ceftazidime if feasible -continue phoslo, torsemide, De >>04/01 GMG exit site drainage culture still updating >> pending final results and her abtc tolerances would ideally leave on IP ceftazidime and vancomycin which could dwell together; but may need other scenarios including possibly midline <<in this scenario would want pt to be able to administer own IV abtx if feasible given challenges of coordinating daily PD training w/ home nursing Care coordinated extensively last evening w/ admitting team and extensively this am w/ SRINIVASA Mccarty, pharmacy, transcription coordinator IP and OP. 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 and BL renal masses indeterminate masses >> OP follow up (4) S/P hernia repair: she had 03/20/25 strangulated umbilical hernia repair at [facility] (5) Temporal giant cell arteritis: on high dose steroid taper and PJP prophylaxis > continue prednisone and atovaquone (6) ESRD (end stage renal disease): not yet on dialysis; plan urgent start training to continue IP abtx w/ very low volume fills on 04/08 as OP History of Present Illness Reason for Consultation: complex PD peritonitis Requesting Physician: Dr Grimm Attending Physician: Tenisha Harris MD History of Present Illness 60 y/o F whom I referred to [facility] for admission for care of complex PD peritonitis was admitted last evening for same. PMH includes temporal arteritis recently diagnosed on high dose steroid taper and PJP prophylaxis, ESRD not yet on dialysis, morbid obesity, HTN, GERD, HL. Admitted [facility] Jun 2024 w/ influenza A and severe neuropathy as well as Stage 2 JOSE. Admitted [facility] January 2025 w/ 3rd nerve palsy and stroke like sx; ultimately diagnosed w/ temporal arteritis for which she is on high dose steroids and PJP prophylaxis. Timeline of recent events: 03/20 > complex strangulated hernia repair and PD catheter placement, deemed high risk b/c of hernia repair, immunosuppression, obesity 03/23 (approx) > pt updates PD nurse that catheter is hanging out of dressing (unexpected) >> advised to cover w/ sterile gauze and anchor gauze 03/25 > noted at PD clinic no cap on PD catheter of unknown duration >> first transfer set change; no abdominal or constitutional symptoms >referred to [facility] ED for surgical eval >> no intervention indicated, including no abtx >started by me empirically on clindamycin and nystatin, 10 day course planned 04/01 > noted at PD clinic to have drainage on dressing, copious serosanguinous drainage around PD catheter, exit site looks ok; no abdominal or constitutional symptoms > culture of drainage around exit site obtained, transfer set chagned once again 04/02> post op visit w/ general surgery >> satisfactory 04/03> exit site drainage culture positive for few GNR and for Enterococcal species; pt referred to ED 04/04 > ES drainage culture growing Enterococcal species and Pseudomonas aeruginosa Pt endorses some N when I evaluated her this am; no sob, no emesis, no abd pain or diarrhea/constipation, no f/c, no new/worrisome voding sx; no chest pain or palpitations Allergies Allergy/AdvReac Type Severity Reaction Status Date / Time Sulfa (Sulfonamide Allergy Severe EDEMA OF Verified 04/03/25 17:54 Antibiotics) AIRWAY Penicillins Allergy Intermediate RASH AND Verified 04/03/25 17:54 SWELLING Home Medications Medication Instructions Recorded Confirmed Type allopurinol 100 mg tablet 200 mg PO DAILY 04/03/25 04/03/25 History atorvastatin 20 mg tablet 20 mg PO DAILY 04/03/25 04/03/25 History atovaquone 750 mg/5 mL oral 1,500 mg PO QAM 04/03/25 04/03/25 History suspension calcium acetate(phosphat bind) 667 1,334 mg PO TIDM 04/03/25 04/03/25 History mg capsule cholecalciferol (vitamin D3) 25 25 mcg PO DAILY 04/03/25 04/03/25 History mcg (1,000 unit) capsule (Vitamin D3) citalopram 40 mg tablet (Celexa) 40 mg PO DAILY 04/03/25 04/03/25 History clindamycin HCl 150 mg capsule 450 mg PO TID 04/03/25 04/03/25 History famotidine 20 mg tablet 20 mg PO Q OTHER DAY 04/03/25 04/03/25 History folic acid 1 mg tablet 1 mg PO DAILY 04/03/25 04/03/25 History gabapentin 300 mg capsule 300 mg PO DAILY 04/03/25 04/03/25 History lansoprazole 30 mg capsule,delayed 30 mg PO DAILYBB 04/03/25 04/03/25 History release (Prevacid) lorazepam 0.5 mg tablet 0.5 mg PO HS PRN Anxiety 04/03/25 04/03/25 History nystatin 100,000 unit/mL oral 5 ml mucous membrane QID 04/03/25 04/03/25 History suspension ondansetron 4 mg disintegrating 4 mg PO Q8H PRN NAUSEA/VOMITING 04/03/25 04/03/25 History tablet prednisone 10 mg tablet 30 mg PO DAILY 04/03/25 04/03/25 History prednisone 5 mg tablet 5 mg PO DAILY 04/03/25 04/03/25 History timolol maleate 0.5 % eye drops 1 drp OPB BID 04/03/25 04/03/25 History tocilizumab 162 mg/0.9 mL 162 mg subcut WK 04/03/25 04/03/25 History subcutaneous pen injector (Actemra ACTPen) torsemide 100 mg tablet 100 mg PO QAM 04/03/25 04/03/25 History Patient History Medical History HTN (hypertension) ESRD (end stage renal disease) Anxiety and depression Temporal giant cell arteritis Dyslipidemia CKD (chronic kidney disease), stage IV Surgical History History of hernia repair History of esophagogastroduodenoscopy (EGD) Family History Other Cancer Diabetes Social History Smoking Status: Never smoker Hx Alcohol Use: No Hx Substance Use: No Preferred Language: Romansh Communication Ability: Effective Purchasing Department Clerk Required: No Beliefs That Will Affect Care: None Current Living Situation: Spouse Current Living Situation Comment: home with Other Information That Helps Us Care for You: No Feels Safe at Home: Yes Safety Concerns: Feels Safe At This Time Assistive Devices: Glasses Review of Systems 2 Review of Systems: All systems reviewed & are unremarkable except as noted in HPI & below Physical Exam 2 Constitutional: well developed, well nourished, + acute distress (mild distress w/ nausea), + morbidly obese and cooperative Eyes: EOM intact bilaterally ENMT: Ears: no external ear abnormality Nose: no external nose abnormality Mouth: + dry oral mucous membranes Neck: no nuchal rigidity Respiratory: normal respiratory effort Auscultation: + diminished lung sounds Cardiovascular: RRR, no murmur, no edema Gastrointestinal (Abdomen): Inspection/Auscultation: normal bowel sounds and + abdominal surgical drain present (PD catheter present) Percussion/Palpation: abdomen soft; abdomen nontender Musculoskeletal: Extremities: strength 5/5 throughout Skin: no rashes, warm and dry Neurologic: tomlinson, fluent speech, no tremor Psychiatric: A+Ox3, euthymic affect Results & Data Vital Signs (Past 12 Hours) Vital Signs Temp Pulse Pulse Resp BP BP Pulse Ox 04/04/25 07:23 67 04/04/25 02:25 36.8 C 68 16 153/93 H 94 04/03/25 23:40 78 04/03/25 23:23 68 159/91 H 04/03/25 22:34 83 176/101 H 04/03/25 22:13 04/03/25 22:13 36.6 C 83 16 176/101 H 98 04/03/25 21:41 04/03/25 21:41 36.6 C 83 16 176/101 H 98 04/03/25 21:00 74 16 145/89 H 95 04/03/25 20:59 74 16 145/89 H 95 Pulse Ox O2 Del Method O2 Del Method 04/04/25 07:23 04/04/25 02:25 Room Air 04/03/25 23:40 04/03/25 23:23 04/03/25 22:34 04/03/25 22:13 Room Air 04/03/25 22:13 Room Air 04/03/25 21:41 98 Room Air 04/03/25 21:41 Room Air 04/03/25 21:00 Room Air 04/03/25 20:59 Room Air Laboratory Results 04/04/25 05:34 04/04/25 05:34 APR 01 2025 SWAB of drainiage from PD Cath Exit site (serosanguinous): -moderate Enterococcus -few Pseudomonas aeruginosa Diagnostic Findings 1. 3 x 1.5 cm suspected soft tissue abscess in the anterior abdominal wall 2. Peritoneal dialysis catheter. No ascites or intra-peritoneal fluid collection is seen 3. Right renal mass that may represent an angiomyolipoma. There are also bilateral hyperdense renal lesions that may represent proteinaceous or hemorrhagic cysts but are indeterminate in nature. Renal protocol abdominal CT or MRI with and without contrast could be obtained for further evaluation 4. Diverticulosis without evidence of diverticulitis 5. Small left pleural effusion
--- NOTE | 2025-04-04 08:32 | Hospitalist Progress Note ---
Date of Service April 04, 2025 Assessment & Plan (1) Leukocytosis: (2) Peritonitis: Plan: Pseudomonas and Enterococcus + Peritoneal fluid Peritonitis ESRD Peritoneal dialysis catheter Suspected Infected peritoneal dialysis catheter causing peritoneal infection and peritonitis Patient is 60 year old female with PMH ESRD, not on dialysis yet, HTN, HLD, gout, GERD, giant cell arteritis, anxiety, depression, morbid obesity and others listed below presented to ER with concern for peritoneal infection. 03/20/25 had laparoscopic Insertion Intraperitoneal Catheter and umbilical Hernia Repair at [facility]. Later in her course peritoneal nurse had found that patient was found to be missing cap from her PD catheter postsurgery and it was uncertain how long this was displaced. Patient was seen at [facility] ER 03/25/25 and general surgery was consulted and felt patient did not require any interventions or intraperitoneal antibiotics at that time. 03/25/2025 Nephrology, Dr. Moreland recommended oral clindamycin, nystatin. Pt noted to have purulent drainage at PD cath exit site 04/01/2025 PD cath exit site culture +moderate Enterococcus species, few gram- negative bacilli. Fluid around peritoneal cath site was sent for culture. 04/02/25 outpatient general surgery visit with Dr Ramiro Cooney felt pt doing well 04/04 Pseudomonas + enterococcus species growing from culture per discussion with nephro On admission WBC: 17, lactate: 4.5-->1.2 without any IVF or other medications given. UA unremarkable Pt denies fever/chills, N/V/D, abdominal pain Nephro recommended dc clindamycin and continuing nystatin at that time. Antibiotics: Started aztreonam and daptomycin IV given 04/03, will start daptomycin through peritoneal catheter today 04/04/25. She must lay flat x 6 hours after administration of daptomycin due to high risk, new PD catheter. Pt is not allowed to sit up, use restroom, strict laying flat x those 6 hours after administration of the daptomycin intraperitoneally. + Pseudomonas growing on outpatient cultures from PD catheter on 04/01 Culture for enterococcus sensitivities in process at [facility] Mark - follow, micro # [phone], pts Discussion held with pharmacy and nephro: plan discontinuation of aztreonam and will replace with 3rd gen cephalosporin= ceftazadime ---- Can use ceftazidime IP to cover psuedomonas but data unavailable regarding mixing with daptomycin. Can mix either cefepime or ceftazidime with vancomycin IP. Will follow up with micro at [facility] micro- these are still pending to r/o VRE. If not VRE then can use vanc instead of dapto. Will plan for ceftazidime IV and daptomycin IP today Consider ID consult once cultures are available per nephrology. CT abd/pelvis reviewed personally: Impression: 1. 3 x 1.5 cm suspected soft tissue abscess in the anterior abdominal wall 2. Peritoneal dialysis catheter. No ascites or intra-peritoneal fluid collection is seen 3. Right renal mass that may represent an angiomyolipoma. There are also bilateral hyperdense renal lesions that may represent proteinaceous or hem orrhagic cysts but are indeterminate in nature. Renal protocol abdominal CT or MRI with and without contrast could be obtained for further evaluation 4. Diverticulosis without evidence of diverticulitis 5. Small left pleural effusion General Surgery consult to eval the suspected abscess in regards to hernia surgery and if this is postop changes that are expected or if it truely looks like a new abscess. Continue renal meds, torsemide CBC, BMP in am Temporal arteritis On prolonged prednisone taper Currently on 35 mg daily, will decrease to 30 mg daily on 04/08/25 x 1 week followed by 25 mg daily x 1 week and continue to taper. (If pt here prolonged time will need to adjust prednisone dosing in hospital system) To be on Actemra once weekly PCP prophylaxis and on atovaquone Dyslipidemia Hold atorvastatin while on daptomycin GERD Continue PPI Gout Continue allopurinol Anxiety and depression continue citalopram DVT Prophylaxis: SCDs Lines: PIV x 1, PD catheter CODE: FULL Follows with Maida Ocampo PA-C for routine care Pt was seen and care coordinated with Dr Grimm. See addendum I spent a total of 45 minutes reviewing notes, outpatient records, labs, medication, coordinating, documenting and providing care for this patient excluding time spent in the performance of separately billed services and excluding time spent by another provider/QHP. Admission and Anticipated Discharge Date Admission Date: April 03, 2025 Supervising Physician Co-Signing Physician Notes Patient seen and examined Reviewed findings with patient and plan of action Answered all her questions Agree with findings and plans as detailed by Christy Mccarty PA-C Subjective Pt is seen and examined this morning and has no acute complaints other than not sleeping well due to being in the hospital. She is recieving aztreonam/daptomycin. Pt denies abdominal pain/n/v/d/c. There has not been any fluid drainage on the bandage covering insertion site of her peritoneal catheter x 36 hours. Cultures from this fluid are still pending. She is afebrile, WBC trending down, Cr/BUN also trending down. Pt tolerated breakfast this morning. Bowel movements are regular. During this entire course she has not had any symptoms/discomfort/nausea, etc. Plan of care was communicated with her at bedside after discussion with nephrology, micro lab at [facility], pharmacy here and attending. All her questions and concerns were addressed. See plan. Review of Systems Review of Systems: Constitutional: No fever, sweats or chills Eyes: No diplopia, no worsening or blurred vision ENT: normal hearing, no trouble swallowing Respiratory: No cough, sputum, dyspnea at rest or on exertion Cardiovascular: No chest pain, tightness or palpitations Abdomen: As per HPI. No pain, nausea, vomiting, diarrhea or constipation Musculoskeletal: No joint pain, calf pain, swelling Neurologic: No weakness, numbness/tingling, or balance problems Psychiatric: No anxiety or depression Skin: No rash or itch Physical Exam Physical Exam: General: awake, alert, no apparent distress, obese white femal Head: Normocephalic, atraumatic ENT: PERRL, EOMI, no pharyngeal exudate, mucous membranes moist Chest: Clear to auscultation, on room air, no adventitious breath sounds Cardiac: Regular rate and rhythm, no murmur, no JVD, normal peripheral pulses, good capillary refill Abdominal: NABS x 4 quadrants, soft, nondistended, nontender to palpation, no re bound or guarding, + PD catheter insertion site without surrounding erythema, no draining fluid. +Healing hernia incision, no surrounding erythema or signs of infection. Extremities: Normal inspection, no peripheral edema or erythema, calfs nontender to palpation Psych: Normal mood and affect Neuro: AAO x 3, strength intact bilaterally and rated 5/5, no motor deficits, speech is clear, no peripheral sensory deficits Results & Data Results & Data Vital Signs (Past 12 Hours) Vital Signs Temp Pulse Pulse Resp BP BP Pulse Ox 04/04/25 08:00 36.4 C L 69 16 146/79 H 95 04/04/25 07:23 67 04/04/25 02:25 36.8 C 68 16 153/93 H 94 04/03/25 23:40 78 04/03/25 23:23 68 159/91 H 04/03/25 22:34 83 176/101 H 04/03/25 22:13 04/03/25 22:13 36.6 C 83 16 176/101 H 98 04/03/25 21:41 04/03/25 21:41 36.6 C 83 16 176/101 H 98 04/03/25 21:00 74 16 145/89 H 95 04/03/25 20:59 74 16 145/89 H 95 Pulse Ox O2 Del Method O2 Del Method 04/04/25 08:00 Room Air 04/04/25 07:23 04/04/25 02:25 Room Air 04/03/25 23:40 04/03/25 23:23 04/03/25 22:34 04/03/25 22:13 Room Air 04/03/25 22:13 Room Air 04/03/25 21:41 98 Room Air 04/03/25 21:41 Room Air 04/03/25 21:00 Room Air 04/03/25 20:59 Room Air Laboratory Results 04/03/25 17:25 Aerobic Blood Culture - Pending Blood Anaerobic Blood Culture - Pending 04/03/25 17:27 Aerobic Blood Culture - Pending Blood Anaerobic Blood Culture - Pending 04/04/25 04/03/25 04/03/25 05:34 19:07 19:03 WBC 15.20 H RBC 3.12 L Hgb 9.8 L Hct 30.8 L MCV 98.7 MCH 31.4 MCHC 31.8 L RDW Std Deviation 50.4 H RDW Coeff of Kylah 14.1 Plt Count 195 MPV 12.1 Immature Gran % (Auto) 0.3 Neut % (Auto) 70.8 Lymph % (Auto) 23.0 Mitchell % (Auto) 4.5 Eos % (Auto) 1.3 Baso % (Auto) 0.1 Neut # (Auto) 10.76 H Lymph # (Auto) 3.50 H Mitchell # (Auto) 0.68 H Eos # (Auto) 0.19 Baso # (Auto) 0.02 Immature Gran # (Auto) 0.05 PT INR APTT PTT Ratio Sodium 141 Potassium 3.7 Chloride 105 Carbon Dioxide 22 Anion Gap 14 H BUN 96 H Creatinine 3.95 H Est Cr Clr Drug Dosing 20.5 eGFR 12.25 BUN/Creatinine Ratio 24.3 H Glucose 93 Lactate 1.2 Calcium 8.3 L Magnesium Total Bilirubin AST ALT Alkaline Phosphatase Troponin I High Sens Total Protein Albumin Globulin Albumin/Globulin Ratio Procalcitonin Urine Color Yellow Urine Appearance Clear Urine pH 5.5 Ur Specific [place] 1.013 Urine Protein Negative Urine Glucose (UA) Negative Urine Ketones Negative Urine Blood Negative Urine Nitrite Negative Urine Bilirubin Negative Urine Urobilinogen Negative Ur Leukocyte Esterase Negative Urine Comment 04/03/25 17:27 WBC 17.44 H RBC 3.49 L Hgb 11.2 L Hct 34.0 L MCV 97.4 MCH 32.1 MCHC 32.9 RDW Std Deviation 49.3 H RDW Coeff of [place]ylah 14.1 Plt Count 243 MPV 12.4 Immature Gran % (Auto) 0.5 Neut % (Auto) 85.0 Lymph % (Auto) 12.3 Mitchell % (Auto) 2.1 Eos % (Auto) 0.0 Baso % (Auto) 0.1 Neut # (Auto) 14.81 H Lymph # (Auto) 2.15 Mitchell # (Auto) 0.37 Eos # (Auto) 0.00 Baso # (Auto) 0.02 Immature Gran # (Auto) 0.09 PT 10.8 INR 1.0 APTT 23 PTT Ratio 0.8 Sodium 140 Potassium 3.9 Chloride 102 Carbon Dioxide 20 L Anion Gap 18 H BUN 101 H Creatinine 4.20 H Est Cr Clr Drug Dosing 19.4 eGFR 11.38 BUN/Creatinine Ratio 24.0 H Glucose 148 H Lactate 4.5 H* Calcium 8.6 Magnesium 2.3 Total Bilirubin 0.3 AST 8 L ALT 12 Alkaline Phosphatase 84 Troponin I High Sens 8.3 Total Protein 7.7 Albumin 3.9 Globulin 3.8 Albumin/Globulin Ratio 1.0 Procalcitonin 0.17 Urine Color Urine Appearance Urine pH Ur Specific [place] Urine Protein Urine Glucose (UA) Urine Ketones Urine Blood Urine Nitrite Urine Bilirubin Urine Urobilinogen Ur Leukocyte Esterase Urine Comment (1) Leukocytosis Leukocytosis type: unspecified Qualified Code(s): D72.829 - Elevated white blood cell count, unspecified
[2025-04-04] MEDS: CALCIUM ACETATE 667 MG CAP/TAB PO SCH (09:04)
[2025-04-04] MEDS: ATOVAQUONE 750 MG/5 ML UDC PO SCH (09:05)
[2025-04-04] MEDS: FOLIC ACID 1 MG TAB PO SCH (09:06)
[2025-04-04] MEDS: TORSEMIDE 100 MG TAB PO SCH (09:06)
[2025-04-04] MEDS: GABAPENTIN 300 MG CAP PO SCH (09:06)
[2025-04-04] MEDS: CITALOPRAM 40 MG TAB PO SCH (09:06)
[2025-04-04] MEDS: FAMOTIDINE 20 MG TAB PO SCH (09:09)
[2025-04-04] MEDS: DIALYSIS IV SCH (09:50)
[2025-04-04] MEDS: PERITONEAL 2.5% IV SCH (09:50)
[2025-04-04] MEDS: DAPTOMYCIN IV SCH (09:50)
[2025-04-04] MEDS: cefTAZidime 1,000 MG in DEXTROSE 5 % MINI-B 50 ML IV SCH (10:28)
[2025-04-04] MEDS: ONDANSETRON INJ 2 MG/ML 2 ML VIAL IV PRN (10:58)
[2025-04-04] MEDS: CHOLECALCIFEROL 25 MCG (1000 UNITS) TAB PO SCH (11:03)
--- NOTE | 2025-04-04 12:02 | Surgery Consultation ---
<Statement entered by Brenda Cha MD - 04/04/25 12:49> I independently saw the patient and I agree with the assessment and plan of care Date of Consultation April 04, 2025 Assessment & Plan (1) Abnormal abdominal CT scan: This is a 60y F with a PMH of chronic renal failure who is s/p recent ventral hernia repair and placement of peritoneal dialysis catheter on 03/20/25 at [facility]. Patient states her PD catheter had some drainage around it was came in because cultures were +. In the ER she underwent a CT a/p that was performed that revealed a 3 x 1.5 cm suspected soft tissue abscess in the anterior abdominal wall. No ascites or intra-peritoneal fluid collection is seen. The patient denies any fevers/chills. The PD catheter was not used yet and she said she was told she may have to wait several weeks while she is healing from her ventral hernia repair. She was seen in [facility] ER recently and started on oral abx. She was also seen by her surgeon 2 days ago who felt everything appeared well. Today blood work shows WBC 15.2 (17), Hbg 9.8 (11), Cr 3.9. Vitals are stable. patient resting in bed in no distress. nephrology consulted. Would recommend reaching out to infectious disease for their opinion on antibiotic guidance/management in this situation. Unsure if PD catheter needs to come out or just treat through and hold off on using it until infection resolves. Would recommend reaching out to patient's surgeon in [facility] since her surgery was <2 wee ks ago for his opinion. We have no plans for any procedures on her at this point as we do not routinely deal with peritoneal catheters. Please call if any questions/concerns we can try to assist and help as needed. (2) Peritonitis associated with peritoneal dialysis: (3) S/P hernia repair: History of Present Illness Attending Physician: Tenisha Harris MD History of Present Illness This is a 60y F with a PMH of chronic renal failure who is s/p recent ventral hernia repair and placement of peritoneal dialysis catheter on 03/20/25 at [facility]. Patient states her PD catheter had some drainage around it was came in because cultures were +. In the ER she underwent a CT a/p that was performed that revealed a 3 x 1.5 cm suspected soft tissue abscess in the anterior abdominal wall. No ascites or intra-peritoneal fluid collection is seen. The patient denies any fevers/chills. The PD catheter was not used yet and she said she was told she may have to wait several weeks while she is healing from her ventral hernia repair. She was seen in [facility] ER recently and started on oral abx. She was also seen by her surgeon 2 days ago who felt everything appeared well. Allergies Allergy/AdvReac Type Severity Reaction Status Date / Time Sulfa (Sulfonamide Allergy Severe EDEMA OF Verified 04/03/25 17:54 Antibiotics) AIRWAY Penicillins Allergy Intermediate RASH AND Verified 04/03/25 17:54 SWELLING Home Medications Medication Instructions Recorded Confirmed Type allopurinol 100 mg tablet 200 mg PO DAILY 04/03/25 04/03/25 History atorvastatin 20 mg tablet 20 mg PO DAILY 04/03/25 04/03/25 History atovaquone 750 mg/5 mL oral 1,500 mg PO QAM 04/03/25 04/03/25 History suspension calcium acetate(phosphat bind) 667 1,334 mg PO TIDM 04/03/25 04/03/25 History mg capsule cholecalciferol (vitamin D3) 25 25 mcg PO DAILY 04/03/25 04/03/25 History mcg (1,000 unit) capsule (Vitamin D3) citalopram 40 mg tablet (Celexa) 40 mg PO DAILY 04/03/25 04/03/25 History clindamycin HCl 150 mg capsule 450 mg PO TID 04/03/25 04/03/25 History famotidine 20 mg tablet 20 mg PO Q OTHER DAY 04/03/25 04/03/25 History folic acid 1 mg tablet 1 mg PO DAILY 04/03/25 04/03/25 History gabapentin 300 mg capsule 300 mg PO DAILY 04/03/25 04/03/25 History lansoprazole 30 mg capsule,delayed 30 mg PO DAILYBB 04/03/25 04/03/25 History release (Prevacid) lorazepam 0.5 mg tablet 0.5 mg PO HS PRN Anxiety 04/03/25 04/03/25 History nystatin 100,000 unit/mL oral 5 ml mucous membrane QID 04/03/25 04/03/25 History suspension ondansetron 4 mg disintegrating 4 mg PO Q8H PRN NAUSEA/VOMITING 04/03/25 04/03/25 History tablet prednisone 10 mg tablet 30 mg PO DAILY 04/03/25 04/03/25 History prednisone 5 mg tablet 5 mg PO DAILY 04/03/25 04/03/25 History timolol maleate 0.5 % eye drops 1 drp OPB BID 04/03/25 04/03/25 History tocilizumab 162 mg/0.9 mL 162 mg subcut WK 04/03/25 04/03/25 History subcutaneous pen injector (Actemra ACTPen) torsemide 100 mg tablet 100 mg PO QAM 04/03/25 04/03/25 History Patient History Medical History HTN (hypertension) ESRD (end stage renal disease) Anxiety and depression Temporal giant cell arteritis Dyslipidemia CKD (chronic kidney disease), stage IV Surgical History History of hernia repair History of esophagogastroduodenoscopy (EGD) Family History Other Cancer Diabetes Social History Smoking Status: Never smoker Hx Alcohol Use: No Hx Substance Use: No Preferred Language: Kiswahili Communication Ability: Effective Panel Builder Required: No Beliefs That Will Affect Care: None Current Living Situation: Spouse Current Living Situation Comment: home with Other Information That Helps Us Care for You: No Feels Safe at Home: Yes Safety Concerns: Feels Safe At This Time Assistive Devices: Glasses Review of Systems Constitutional: no fever and no chills Respiratory: no dyspnea Gastrointestinal: no abdominal pain + drainage around PD catheter, not used yet Physical Exam Physical Exam: awake/alert, no distress Respiratory: normal respiratory effort Gastrointestinal (Abdomen): Percussion/Palpation: abdomen soft; abdomen nontender some purulent appearing drainage around PD catheter site on dressing. no significant erythema. Ventral hernia incision appears to be healing well with skin glue, no signs of infection Results & Data Vital Signs (Past 12 Hours) Vital Signs Temp Pulse Pulse Resp BP Pulse Ox O2 Del Method 04/04/25 11:46 97.7 F 68 20 145/83 H 94 Room Air 04/04/25 11:17 Room Air 04/04/25 08:00 97.5 F L 69 16 146/79 H 95 Room Air 04/04/25 07:23 67 04/04/25 02:25 98.2 F 68 16 153/93 H 94 Room Air Diagnostic Findings Clinical History: Peritoneal dialysis catheter infection Technique: Axial computed tomography images were obtained of the abdomen and pelvis without intravenous contrast. Findings: The liver is overall of normal size, attenuation, and contour with no sign of cirrhosis or significant fatty infiltration. No definite liver mass lesion is seen on this noncontrast study. The gallbladder has been removed. No bile duct dilatation is noted. The spleen is of normal size. No focal splenic lesion is evident. The pancreas appears normal with no sign of acute or chronic pancreatitis and no mass lesion noted. The pancreatic duct is of normal caliber. The adrenal glands appear unremarkable. No renal or proximal ureteral calculi are seen. There is no hydronephrosis or perinephric stranding. There is a 2.5 cm mass of the right kidney that is predominantly soft tissue attenuation but has some fat content, suggestive of an angiomyolipoma. There is a 1.8 cm hyperdense right renal lesion and there is a suspected 2.6 cm hyperdense left renal lesion The aorta is of normal caliber. No abdominal adenopathy is seen. There is a 3 x 1.5 cm collection of fluid and air in the anterior abdominal wall, suggestive of an abscess The stomach appears normal. There is no sign of small bowel obstruction. There is diverticulosis without evidence of diverticulitis. There is no sign of appendicitis. No free intraperitoneal fluid or air is identified. There is a peritoneal dialysis catheter. No distal ureteral or bladder calculi are seen. No obvious bladder mass lesion is evident. The iliac arteries are of normal caliber. No pelvic adenopathy is noted. The uterus has been removed There is a small left pleural effusion. There is subsegmental atelectasis in both lower lobes. Mild thoracolumbar degenerative disc disease is seen. There are apparent old fractures of the inferior pubic rami bilaterally. No focal osseous lesion is seen Impression: 1. 3 x 1.5 cm suspected soft tissue abscess in the anterior abdominal wall 2. Peritoneal dialysis catheter. No ascites or intra-peritoneal fluid collection is seen 3. Right renal mass that may represent an angiomyolipoma. There are also bilateral hyperdense renal lesions that may represent proteinaceous or hemorrhagic cysts but are indeterminate in nature. Renal protocol abdominal CT or MRI with and without contrast could be obtained for further evaluation 4. Diverticulosis without evidence of diverticulitis 5. Small left pleural effusion ACT 112: Positive. There are findings on this exam that require communication between the performing entity and the patient following Patient Test Result Information Act ([place] ACT 112) guidelines. Electronically signed by Heriberto Laurent 04-03-2025 6:41 PM Dictated: 04/03/25 1819 PG Care Time/CCT Total # of Minutes Spent Total Time Spent with Patient: Total time spent is greater than 50% in coordination of care (as documented) at patient's floor/unit and/or counseling patient: Coding Level of Care Code 91951 IN/OBS CONSULT LVL 3,45M Diagnoses Abnormal abdominal CT scan R93.5 Peritonitis associated with peritoneal dialysis T85.71XA S/P hernia repair Z98.890; Z87.19
[2025-04-04] MEDS: ACETAMINOPHEN 325 MG TAB PO PRN (20:38)
--- NOTE | 2025-04-04 21:16 | Electrocardiogram Report ---
Test Reason : Blood Pressure : */* mmHG Vent. Rate : 89 BPM Atrial Rate : 89 BPM P-R Int : 138 ms QRS Dur : 100 ms QT Int : 384 ms P-R-T Axes : 39 30 27 degrees QTcB Int : 467 ms Normal sinus rhythm Low voltage QRS Borderline ECG No previous ECGs available Confirmed by Roman Banks ([id number]) on 04/04/2025 9:16:43 PM Referred By: Gerda Moreland Confirmed By: Roman Banks
[2025-04-05 07:43] LABS: Hematocrit (blood only) 34.0 % (37.0-47.0); Hemoglobin 10.7 g/dl (12.0-16.0); Mean Corpuscular Hemoglobin 30.7 pg (25.0-34.0); Mean Corpuscular Volume 97.7 fL (80.0-100.0); Platelet Count 214 K/uL (130-400); RDW Standard Deviation 50.4 fL (36.4-46.3); Red Blood Count 3.48 M/uL (4.20-5.40); White Blood Count 16.99 K/ul (4.8-10.8)
[2025-04-05] MEDS: GENTAMICIN SULFATE 0.1% CR 15 GM TUBE EXT SCH (07:43)
[2025-04-05 07:58] LABS: Anion Gap 14.0 (3-11); Blood Urea Nitrogen 103.0 mg/dl (6-23); Calcium 9.0 mg/dl (8.6-10.3); Carbon Dioxide 24.0 mmol/L (21-32); Chloride 104.0 mmol/L (98-107); Creatinine Clr Calc Pharmacy 19.1 ml/min; Glucose 98.0 mg/dl (70-99(Fasting)); Potassium 4.0 mmol/L (3.5-5.1); Sodium 142.0 mmol/L (136-145)
[2025-04-05] MEDS ORDERED: MIDAZOLAM HCL 1 MG/ML 2ML VIAL ONE (08:11)
[2025-04-05] MEDS ORDERED: ROCURONIUM BROMIDE 10 MG/ML 5 ML VIAL IV ONE (08:12)
[2025-04-05] MEDS ORDERED: ONDANSETRON INJ 2 MG/ML 2 ML VIAL ONE (08:12)
[2025-04-05] MEDS ORDERED: PROPOFOL IV EMULSION 10 MG/ML 20 ML VIAL IV ONE (08:12)
[2025-04-05] MEDS ORDERED: LIDOCAINE 2% 2 ML VIAL/AMP(20MG/ML) INFIL ONE ×2 (08:12)
[2025-04-05] MEDS ORDERED: DEXAMETHASONE SOD INJ 4 MG/ML VIAL ONE ×2 (08:13)
--- NOTE | 2025-04-05 08:48 | Anesthesiology Consultation ---
Date of Service April 05, 2025 Assessment & Plan (1) Encounter for pre-operative examination: Chart Review Chart Review: Acceptable Risk for Surgery History Surgery Operation Date: 04/05/25 09:40 Proposed Procedures p Removal of Peritoneal Dialysis Catheter - Eric Almendarez DO Height/Weight Height: 5 ft 6 in Weight: 129.4 kg Allergies Allergy/AdvReac Type Severity Reaction Status Date / Time Sulfa (Sulfonamide Allergy Severe EDEMA OF Verified 04/03/25 17:54 Antibiotics) AIRWAY Penicillins Allergy Intermediate RASH AND Verified 04/03/25 17:54 SWELLING Medications Home Medications Medication Instructions Recorded Confirmed Last Taken allopurinol 100 mg tablet 200 mg PO DAILY 04/03/25 04/03/25 04/03/25 atorvastatin 20 mg tablet 20 mg PO DAILY 04/03/25 04/03/25 04/03/25 atovaquone 750 mg/5 mL oral 1,500 mg PO QAM 04/03/25 04/03/25 04/03/25 suspension calcium acetate(phosphat bind) 667 1,334 mg PO TIDM 04/03/25 04/03/25 04/03/25 12:00 mg capsule cholecalciferol (vitamin D3) 25 25 mcg PO DAILY 04/03/25 04/03/25 04/03/25 mcg (1,000 unit) capsule (Vitamin D3) citalopram 40 mg tablet (Celexa) 40 mg PO DAILY 04/03/25 04/03/25 04/03/25 clindamycin HCl 150 mg capsule 450 mg PO TID 04/03/25 04/03/25 04/03/25 12:00 famotidine 20 mg tablet 20 mg PO Q OTHER DAY 04/03/25 04/03/25 04/02/25 folic acid 1 mg tablet 1 mg PO DAILY 04/03/25 04/03/25 04/03/25 gabapentin 300 mg capsule 300 mg PO DAILY 04/03/25 04/03/25 04/03/25 lansoprazole 30 mg capsule,delayed 30 mg PO DAILYBB 04/03/25 04/03/25 04/03/25 release (Prevacid) lorazepam 0.5 mg tablet 0.5 mg PO HS PRN Anxiety 04/03/25 04/03/25 Unknown nystatin 100,000 unit/mL oral 5 ml mucous membrane QID 04/03/25 04/03/25 04/03/25 12:00 suspension ondansetron 4 mg disintegrating 4 mg PO Q8H PRN NAUSEA/VOMITING 04/03/25 04/03/25 Unknown tablet prednisone 10 mg tablet 30 mg PO DAILY 04/03/25 04/03/25 04/03/25 prednisone 5 mg tablet 5 mg PO DAILY 04/03/25 04/03/25 04/03/25 timolol maleate 0.5 % eye drops 1 drp OPB BID 04/03/25 04/03/25 04/03/25 08:00 tocilizumab 162 mg/0.9 mL 162 mg subcut WK 04/03/25 04/03/25 Unknown subcutaneous pen injector (Actemra ACTPen) torsemide 100 mg tablet 100 mg PO QAM 04/03/25 04/03/25 04/03/25 Active Medications Generic Name Dose Route Start Last Admin Trade Name Freq PRN Reason Stop Dose Admin Acetaminophen 650 mg 04/03/25 21:41 04/04/25 20:38 Acetaminophen 325 Mg Tab PO 05/03/25 21:40 650 mg Q4H PRN Administration Pain or Fever Allopurinol 200 mg 04/04/25 09:00 04/05/25 07:38 Allopurinol 100 Mg Tab PO 05/04/25 08:59 200 mg DAILY AWA Administration Atovaquone 1,500 mg 04/04/25 09:00 04/05/25 07:40 Atovaquone 750 Mg/5 Ml Udc PO 05/04/25 08:59 1,500 mg QAM AWA Administration Calcium Acetate 1,334 mg 04/04/25 08:00 04/05/25 07:37 Calcium Acetate 667 Mg Cap/Tab PO 05/04/25 07:59 1,334 mg TIDM AWA Administration Citalopram Hydrobromide 40 mg 04/04/25 09:00 04/05/25 07:38 Citalopram 40 Mg Tab PO 05/04/25 08:59 40 mg DAILY AWA Administration Famotidine 20 mg 04/04/25 09:00 04/04/25 09:09 Famotidine 20 Mg Tab PO 05/04/25 08:59 20 mg Q48H AWA Administration Folic Acid 1 mg 04/04/25 09:00 04/05/25 07:38 Folic Acid 1 Mg Tab PO 05/04/25 08:59 1 mg DAILY AWA Administration Gabapentin 300 mg 04/04/25 09:00 04/05/25 07:37 Gabapentin 300 Mg Cap PO 05/04/25 08:59 300 mg DAILY AWA Administration Gentamicin Sulfate 1 appln 04/05/25 09:00 04/05/25 07:43 Gentamicin Sulfate 0.1% Cr 15 Gm Tube EXT 04/15/25 08:59 1 appln DAILY AWA Administration Lorazepam 0.5 mg 04/03/25 21:41 04/04/25 20:38 Lorazepam 0.5 Mg Tab PO 05/03/25 21:40 0.5 mg HS PRN Administration Anxiety Nystatin 5 ml 04/03/25 21:41 04/05/25 07:40 Nystatin Susp 500,000 U/5 Ml Udc PO 04/13/25 21:40 5 ml QID AWA Administration Ondansetron HCl 4 mg 04/03/25 21:41 04/04/25 10:58 Ondansetron Inj 2 Mg/Ml 2 Ml Vial IV 05/03/25 21:40 4 mg Q6H PRN Administration Nausea Pantoprazole Sodium 40 mg 04/04/25 06:30 04/05/25 05:10 Pantoprazole 40 Mg Tab PO 05/04/25 06:29 40 mg DAILYBB AWA Administration Prednisone 30 mg 04/04/25 09:00 04/05/25 07:37 Prednisone 10 Mg Tablet PO 05/04/25 08:59 30 mg DAILY AWA Administration Prednisone 5 mg 04/04/25 09:00 04/05/25 07:38 Prednisone 5 Mg Tab PO 05/04/25 08:59 5 mg DAILY AWA Administration Timolol Maleate 1 drops 04/03/25 21:41 04/05/25 07:40 Timolol Maleate 0.5% Op Soln 5 Ml Btl OPB 05/03/25 21:40 1 drops BID AWA Administration Torsemide 100 mg 04/04/25 09:00 04/05/25 07:38 Torsemide 100 Mg Tab PO 05/04/25 08:59 100 mg QAM AWA Administration Vitamin D 25 mcg 04/04/25 09:00 04/05/25 07:38 Cholecalciferol 25 Mcg (1000 Units) Tab PO 05/04/25 08:59 25 mcg DAILY AWA Administration Past Medical History Medical History (Updated 04/05/25 @ 08:48 by Bob Valles MD) Anemia HTN (hypertension) ESRD (end stage renal disease) Anxiety and depression Temporal giant cell arteritis Dyslipidemia CKD (chronic kidney disease), stage IV Past Family History Family History Other Cancer Diabetes Past Surgical History Surgical History History of hernia repair History of esophagogastroduodenoscopy (EGD) Social History Smoking Status: Never smoker Hx Alcohol Use: No Hx Substance Use: No substance use type: does not use Physical Exam Vital Signs Last Vital Signs Temp 36.6 C 04/05/25 07:33 Pulse 73 04/05/25 07:33 Resp 18 04/05/25 07:33 BP 124/80 04/05/25 07:33 Pulse Ox 95 04/05/25 07:33 O2 Del Method Room Air 04/05/25 07:33 Testing Laboratory Results 04/05/25 07:30 04/05/25 07:30 PT 10.8 Seconds (9.0-12.0) 04/03/25 17:27 INR 1.0 (0.9-1.1) 04/03/25 17:27 APTT 23 Seconds (21-31) 04/03/25 17:27 Urine Color Yellow 04/03/25 19:07 Urine Appearance Clear (Clear) 04/03/25 19:07 Urine pH 5.5 (4.5-7.5) 04/03/25 19:07 Ur Specific [place] 1.013 (1.000-1.030) 04/03/25 19:07 Urine Protein Negative (Negative) 04/03/25 19:07 Urine Glucose (UA) Negative (Negative) 04/03/25 19:07 Urine Ketones Negative (Negative) 04/03/25 19:07 Urine Nitrite Negative (Negative) 04/03/25 19:07 Ur Leukocyte Esterase Negative (Negative) 04/03/25 19:07 04/03/25 17:25 Aerobic Blood Culture - Preliminary Blood No growth in Aerobic bottle after 24 hours. Anaerobic Blood Culture - Preliminary No growth in Anaerobic bottle after 24 hours. 04/03/25 17:27 Aerobic Blood Culture - Preliminary Blood No growth in Aerobic bottle after 24 hours. Anaerobic Blood Culture - Preliminary No growth in Anaerobic bottle after 24 hours. Electrocardiogram Date: 04/03/25 Findings: + NSR @ (57)
[2025-04-05] MEDS ORDERED: ATROPINE SULFATE 0.1 MG/ML 10ML SYR IV PRN (09:05)
[2025-04-05] MEDS ORDERED: HYDROmorphone INJ 1 MG/ML SYRINGE IV PRN (09:05)
[2025-04-05] MEDS ORDERED: DROPERIDOL 5 MG/2 ML VIAL IV PRN (09:05)
--- NOTE | 2025-04-05 09:05 | Surgery Progress Note ---
Date of Service April 05, 2025 Assessment & Plan (1) Peritonitis: Plan: Will proceed PD catheter removal today Consent was obtained, risks discussed including bleeding and infection (2) Peritonitis associated with peritoneal dialysis: Admission and Anticipated Discharge Date Admission Date: April 03, 2025 Subjective Patient seen and examined. No acute events overnight. Afebrile. Review of Systems Constitutional: no fever and no chills Respiratory: no cough and no dyspnea Gastrointestinal: no abdominal pain, no nausea and no vomiting Genitourinary: no dysuria and no post-void dribbling Integumentary: no acne and no sores Psychiatric: no behavioral changes and no depression Physical Exam Constitutional: WD/WN, vitals as above Respiratory: normal respiratory effort, lungs clear to auscultation Cardiovascular: RRR, no murmur, no edema Gastrointestinal (Abdomen): Inspection/Auscultation: abdomen normal to inspection and + abdomen distended PD catheter in place in the right abdomen, no erythema or drainage Musculoskeletal: no cyanosis or clubbing, extremities motor strength 5/5 Skin: no rashes, warm and dry Psychiatric: A+Ox3, euthymic affect Results & Data Vital Signs (Past 12 Hours) Vital Signs Temp Pulse Pulse Resp BP Pulse Ox O2 Del Method 04/05/25 07:33 36.6 C 73 18 124/80 95 Room Air 04/05/25 05:51 75 04/05/25 02:49 36.5 C 76 16 118/76 93 Room Air 04/05/25 01:16 77 04/04/25 23:19 36.7 C 73 16 131/84 95 Room Air PG Care Time/CCT Total # of Minutes Spent Total Time Spent with Patient: Total time spent is greater than 50% in coordination of care (as documented) at patient's floor/unit and/or counseling patient: Coding Level of Care Code 96670 SUB INP/OBS CARE 07/07MIN Diagnoses Peritonitis K65.9 Peritonitis associated with peritoneal dialysis T85.71XA
[2025-04-05] MEDS ORDERED: PHENYLEPHRINE 100MCG/ML 5ML SYR ONE (09:29)
[2025-04-05] MEDS: cefTAZidime 2,000 MG in DEXTROSE 5 % MINI-B 50 ML IV SCH (09:35)
[2025-04-05] MEDS ORDERED: SUGAMMADEX SODIUM 200 MG/2 ML VIAL IV ONE (09:37)
[2025-04-05] MEDS: BUPIVACAINE/EPINEPHRINE 0.25% 1:200,000 30 ML VIAL ONE (09:40)
--- NOTE | 2025-04-05 09:41 | Post Operative Brief Note ---
PG Immediate Post Op with CF Date of Surgery April 05, 2025 Pre & Post Diagnosis Pre-Op diagnosis: peritonitis dialysis catheter in place Postop diagnosis: Same I identified the patient and participated in the time-out.: Yes Procedure Operation Date: 04/05/25 09:40 Removal of peritoneal dialysis catheter Surgeon Eric Almendarez DO It Program Auditor Brandi Chirinos PA-C Estimated Blood Loss 1 Findings See Below Intact peritoneal dialysis catheter upon removal Specimens Specimen Description: 1. Peritoneal Dialysis catheter for culture Anesthesia Type General Complications none Disposition Disposition: Recovery Room
--- NOTE | 2025-04-05 09:46 | Operative Report ---
PG Post Operative Report Pre & Post Diagnosis Pre-Op diagnosis: Peritonitis with peritoneal dialysis catheter in place Postop diagnosis: Same I identified the patient and participated in the time-out.: Yes Procedure Operation Date: 04/05/25 09:40 Removal of peritoneal dialysis catheter Surgeon Eric Almendarez DO Senior Net Software Developer Brandi Chirinos PA-C Estimated Blood Loss 1 Findings See Below Intact peritoneal dialysis catheter upon removal Specimens Peritoneal dialysis catheter tip for culture Drains None Anesthesia Type General Complications none Disposition Disposition: Recovery Room Indications 60-year-old female with a recent placement of peritoneal dialysis catheter and hernia repair, now with peritonitis and concern for Catheter infection Description of Procedure The patient was brought to the OR and placed in the supine position. At this time she underwent General Endotracheal anesthesia without issue. She was given appropriate pre-operative antibiotics. Her abdomen was prepped and draped in the usual sterile fashion. A timeout was called. The procedure was verified as removal of peritoneal dialysis catheter. Surgical, anesthesia and nursing teams agreed and the procedure was begun. After injection of 0.25% Marcaine with epinephrine, a transverse incision was made directly over the palpable distal cuff of the catheter. This was carried down to the subcutaneous tissue using electrocautery. The cuff was identified and dissected from surrounding tissue using sharp and blunt dissection. The catheter was then removed in its entirety and the tip sent for culture. The incision was left open at the site of the previous catheter exit of the skin. Hemostasis was achieved using electrocautery. Hemostasis was complete. The separate incision was then closed in layers with 3-0 Vicryl in the deep dermis and the skin using 4-0 Monocryl in a running subcuticular fashion. Sterile dressing was applied. The patient was awakened from anesthesia and taking to PACU having remained stable throughout the entire case. All needle and sponge counts correct x 2. The physician blood and plasma laboratory assistant was present scrubbed for the entire case. She was essential in positioning, prepping and draping the patient, retraction and exposure, closure of the incision and placement of the dressing. I attest to the content of the Intraoperative Record and any orders documented therein. Any exceptions are noted below.
[2025-04-05] MEDS: DAPTOmycin 500 MG in SYRINGE 0 ML IV SCH (10:49)
[2025-04-05] MEDS ORDERED: DIALYSIS IP SCH (11:00)
[2025-04-05] MEDS ORDERED: CEFTAZIDIME IP SCH (11:00)
[2025-04-05] MEDS ORDERED: VANCOMYCIN HCL IP SCH (11:00)
[2025-04-05] MEDS ORDERED: PERITONEAL 2.5% IP SCH (11:00)
--- NOTE | 2025-04-05 11:02 | Hospitalist Progress Note ---
Date of Service April 05, 2025 Assessment & Plan (1) Leukocytosis: (2) Peritonitis: Plan: Pseudomonas aeruginosa, Enterococcus, Staph Haemolyticus + Peritoneal fluid Peritonitis ESRD Peritoneal dialysis catheter, now removed 04/05 Suspected Infected peritoneal dialysis catheter causing peritoneal infection and peritonitis Patient is 60 year old female with PMH ESRD, not on dialysis yet, HTN, HLD, gout, GERD, giant cell arteritis, anxiety, depression, morbid obesity and others listed below presented to ER with concern for peritoneal infection. 03/20/25 had laparoscopic Insertion Intraperitoneal Catheter and umbilical Hernia Repair at [facility]. Later in her course peritoneal nurse had found that patient was found to be missing cap from her PD catheter postsurgery and it was uncertain how long this was displaced. Patient was seen at [facility] ER 03/25/25 and general surgery was consulted and felt patient did not require any interventions or intraperitoneal antibiotics at that time. 03/25/2025 Nephrology, Dr. Moreland recommended oral clindamycin, nystatin. Pt noted to have purulent drainage at PD cath exit site 04/01/2025 PD cath exit site culture +moderate Enterococcus species, few gram- negative bacilli. Fluid around peritoneal cath site was sent for culture. 04/02/25 outpatient general surgery visit with Dr Ramiro Cooney felt pt doing well 04/03: On admission WBC: 17, lactate: 4.5-->1.2 without any IVF or other medications given. UA unremarkable. started aztreonam/ daptomycin IV 04/04 Pseudomonas + enterococcus species growing from culture per discussion with nephro : IV abx stopped aztreonam, switched to ceftazadime Iv and daptomycin IP. After laying flat x 6 hrs PD catheter leaked fluid and soaked dressings. 04/05 Pseudomonas aeruginosa, Enterococcus, Staph haemolyticus growing ont peritoneal fluid culture from 04/01. Enterococcus is susceptible to Vanc. Personally reviewed in outpatient EPIC. [facility] micro # [phone], pts - Overnight events daptomycin through peritoneal catheter leaked 1.5 hrs after laying flat on 04/04. Non functioning PD cath needs removed. Discussion held with Dr. Islas with nephro: PD catheter removed this morning by general surgery. Their team did not enter the abdomen. No surgical procedure planned for abscess on imaging per surgery at [place]. - PD cath tip has been sent for culture, follow. - Radiology pushing imaging through PACs for [facility] [place] [place] radiology to see in case needs transfer to other facility. - Continue IV daptomycin and ceftazadime at this time - ID consulted today - will need final timing of antibiotic therapy. - Afebrile, + abdominal cramping, monitor labs, currently hemodynamically stable - Continue renal meds, torsemide - CBC, BMP in am Temporal arteritis On prolonged prednisone taper Currently on 35 mg daily, will decrease to 30 mg daily on 04/08/25 x 1 week followed by 25 mg daily x 1 week and continue to taper. (If pt here prolonged time will need to adjust prednisone dosing in hospital system) To be on Actemra once weekly PCP prophylaxis and on atovaquone Dyslipidemia Hold atorvastatin while on daptomycin GERD Continue PPI Gout Continue allopurinol Anxiety and depression continue citalopram DVT Prophylaxis: SCDs Lines: PIV x 1, PD catheter CODE: FULL Follows with Maida Ocampo PA-C for routine care I spent a total of 75 minutes reviewing notes, outpatient records, discussion with consultants, labs, medication, coordinating, documenting and providing care for this patient excluding time spent in the performance of separately billed services and excluding time spent by another provider/QHP. Admission and Anticipated Discharge Date Admission Date: April 03, 2025 Supervising Physician Co-Signing Physician Notes Patient seen and examined PD catheter has been removed by Surg Will get ID consult Agree with findings and plans as detailed by Christy Mccarty PA-C Subjective Overnight events: PD cath leaking after laying flat x 6 hours with abx administration via PD cath on 04/04. Patient seen and examined. She is frustrated and tearful at times. Pt has some abdominal cramping today ( this is the first time that she has had symptoms since dx). Had some leaking from PD catheter, no further fluid this morning. PD nurse has been in to see her last evening. Denies fever, chills, sweats. She denies any other acute complaints. 10 point ROS reviewed and otherwise negative. Physical Exam Physical Exam: General: awake, alert, no apparent distress, obese white female Head: Normocephalic, atraumatic ENT: PERRL, EOMI, no pharyngeal exudate, mucous membranes moist Chest: Clear to auscultation, on room air, no adventitious breath sounds Cardiac: Regular rate and rhythm, no murmur, no JVD, normal peripheral pulses, good capillary refill Abdominal: NABS x 4 quadrants, soft, nondistended, nontender to palpation, no rebound or guarding, + PD catheter insertion site dressing is C/D/I. +Healing hernia incision, no surrounding erythema or signs of infection. Extremities: Normal inspection, no peripheral edema or erythema, calfs nontender to palpation Psych: Normal mood and affect Neuro: AAO x 3, strength intact bilaterally and rated 5/5, no motor deficits, speech is clear, no peripheral sensory deficits Results & Data Results & Data Vital Signs (Past 12 Hours) Vital Signs Temp Pulse Pulse Pulse Resp BP BP 04/05/25 10:43 36.6 C 72 16 127/78 04/05/25 10:20 36.4 C L 71 15 120/79 04/05/25 10:10 73 15 135/72 04/05/25 10:00 70 15 140/73 04/05/25 09:53 36.5 C 70 17 108/85 04/05/25 08:50 36.7 C 71 18 155/84 H 04/05/25 07:33 36.6 C 73 18 124/80 04/05/25 05:51 75 04/05/25 02:49 36.5 C 76 16 118/76 04/05/25 01:16 77 04/04/25 23:19 36.7 C 73 16 131/84 Pulse Ox O2 Del Method O2 Flow Rate 04/05/25 10:43 97 Nasal Cannula 1 04/05/25 10:20 94 Room Air 04/05/25 10:10 95 Room Air 04/05/25 10:00 100 Oxymask 5 04/05/25 09:53 98 Oxymask 5 04/05/25 08:50 97 Room Air 04/05/25 07:33 95 Room Air 04/05/25 05:51 04/05/25 02:49 93 Room Air 04/05/25 01:16 04/04/25 23:19 95 Room Air Diagnostic Findings CT abd/pelvis reviewed personally: Impression: 1. 3 x 1.5 cm suspected soft tissue abscess in the anterior abdominal wall 2. Peritoneal dialysis catheter. No ascites or intra-peritoneal fluid collection is seen 3. Right renal mass that may represent an angiomyolipoma. There are also bilateral hyperdense renal lesions that may represent proteinaceous or hemorrhagic cysts but are indeterminate in nature. Renal protocol abdominal CT or MRI with and without contrast could be obtained for further evaluation 4. Diverticulosis without evidence of diverticulitis 5. Small left pleural effusion (1) Leukocytosis Leukocytosis type: unspecified Qualified Code(s): D72.829 - Elevated white blood cell count, unspecified
--- NOTE | 2025-04-05 11:14 | Anesthesiology Progress Note ---
Date of Service April 05, 2025 Anesthesia Post Procedure Vital Signs Vital Signs: Temp Pulse Pulse Pulse Resp BP BP 04/05/25 10:43 36.6 C 72 16 127/78 04/05/25 10:20 36.4 C L 71 15 120/79 04/05/25 10:10 73 15 135/72 04/05/25 10:00 70 15 140/73 04/05/25 09:53 36.5 C 70 17 108/85 04/05/25 08:50 36.7 C 71 18 155/84 H 04/05/25 07:33 36.6 C 73 18 124/80 04/05/25 05:51 75 04/05/25 02:49 36.5 C 76 16 118/76 04/05/25 01:16 77 04/04/25 23:19 36.7 C 73 16 131/84 04/04/25 19:42 04/04/25 19:39 36.4 C L 75 18 150/82 H 04/04/25 15:38 36.2 C L 73 16 138/77 04/04/25 15:20 68 04/04/25 11:46 36.5 C 68 20 145/83 H 04/04/25 11:17 Pulse Ox O2 Del Method O2 Flow Rate 04/05/25 10:43 97 Nasal Cannula 1 04/05/25 10:20 94 Room Air 04/05/25 10:10 95 Room Air 04/05/25 10:00 100 Oxymask 5 04/05/25 09:53 98 Oxymask 5 04/05/25 08:50 97 Room Air 04/05/25 07:33 95 Room Air 04/05/25 05:51 04/05/25 02:49 93 Room Air 04/05/25 01:16 04/04/25 23:19 95 Room Air 04/04/25 19:42 Room Air 04/04/25 19:39 96 Room Air 04/04/25 15:38 97 Room Air 04/04/25 15:20 04/04/25 11:46 94 Room Air 04/04/25 11:17 Room Air Transfer of Care Handoff Completed per policy Notes Mental Status: alert / awake / arousable Patient Amnestic to Procedure: Yes Nausea / Vomiting: adequately controlled Pain: adequately controlled Airway Patency, RR, SpO2: stable & adequate BP & HR: stable & adequate Hydration State: stable & adequate Anesthetic Complications: no major complications apparent
--- NOTE | 2025-04-06 06:28 | Hospitalist Progress Note ---
Date of Service April 06, 2025 Assessment & Plan (1) Peritoneal dialysis catheter infection: (2) Peritonitis associated with peritoneal dialysis: Plan: Patient is a 60y/o F with PMHx significant for ESRD not on dialysis yet, secondary hyperparathyroidism of renal origin, gout of multiple sites due to renal impairment, morbid obesity, HTN, HLD, thyroid nodule, gout, GERD, giant cell arteritis, GERD, anemia of chronic kidney disease, low back pain with left- sided sciatica, osteopenia, third nerve palsy of right eye, ELAINE and depression who presented to the ED on 04/03/25 with concern for peritoneal infection 2/2 an infected peritoneal dialysis catheter. 03/20/25: S/p laparoscopic peritoneal dialysis catheter insertion, open umbilical hernia repair performed by Dr. Ramiro Cooney at [facility]. 03/25/25: Seen at [facility] ED with concerns regarding missing cap from her PD catheter, unclear how long this was displaced. General surgery did not feel the pt required any intervention or intraperitoneal ABX at that time. Dr. Gerda Moreland (nephro) made aware and started pt on po clindamycin and nystatin. 04/01/25: Pt noted to have purulent drainage at PD catheter exit site which was cultured. PD catheter exit site culture grew few Pseudomonas aeruginosa, moderate Enterococcus species and moderate Staphylococcus hemolyticus. -Pseudomonas with susceptibility to cefepime, ciprofloxacin, levofloxacin and Zosyn. -Enterococcus with susceptibility to ampicillin and vancomycin. -Staphylococcus haemolyticus with susceptibility to Bactrim and vancomycin. 04/02/25: Outpatient gen surg visit with Dr. Ramiro Cooney. [place] pt doing well. 04/03/25: Pt referred to ED for admission by Dr. Gerda Moreland to receive IV ABX given results of polymicrobial peritoneal fluid culture and to check CTAP. CTAP with no ascites or intraperitoneal fluid collection however did note a 3 x 1.5 cm suspected soft tissue abscess in the anterior abdominal wall. Initially was started on IV daptomycin and IV aztreonam. IV aztreonam stopped 04/04. Switched to IV ceftazidime and IP daptomycin. -After laying flat x 6 hrs PD catheter site leaked fluid and soaked dressings. -Deemed nonfunctioning PD catheter. POD#1 s/p PD catheter removal performed by Dr. Eric Almendarez. PD catheter tip sent for culture -> preliminary result with NGTD, Gram stain with no organisms seen. Remains afebrile, hemodynamically stable. Blood cx NGTD. Currently on IV daptomycin and IV ceftazidime (renally adjusted), topical gentamicin to PD catheter exit site. Radiology pushing imaging through PACs for [facility] [place] radiology to see in case needs transfer to other facility. Unclear if suspected anterior abdominal wall abscess seen on CTAP will need drained. -Gen surg eval'd pt here and deferring back to primary surgeon, Dr. Ramiro Cooney, given recent operation. Awaiting ID evaluation for further ABX guidance. Also to determine if suspected abscessed will require I&D. Continue renal meds, torsemide. No uremic symptoms despite BUN 115. Cr 4.89, eGFR 9.48; NO need of dialysis currently per nephro. (3) Giant cell arteritis: Plan: Following with [facility] rheumatology, Dr. Douglas Reyna. S/p right artery biopsy on 02/07/2025. Biopsy result c/w lymphocytic mural inflammation suggestive of early/incipient temporal arteritis. Hepatitis B and QuantiFERON negative. On GIACTA 26wk prolonged prednisone taper course as well as Actemra. -Currently on 35mg prednisone daily (wk 4). -Will decrease to 30mg on 04/08/2025 x 1wk, followed by 25mg x 1wk and then continued taper course (outlined in Epic chart). If patient admitted for prolonged time, will need to adjust prednisone dosing in [employer] system. On PCP prophylaxis with atovaquone. Other chronic medical conditions: HLD - Holding statin while on daptomycin. GERD - Continue PPI. Gout - Continue allopurinol. ELAINE/Depression - Continue citalopram. DVT Prophylaxis: SCDs/TEDs only for now Code Status: FULL CODE PCP: Maida Ocampo PA-C Disposition: DC plans uncertain at this time pending ID eval Patient seen in collaboration with Dr. Harris. Please see addendum. I spent a total of 62 minutes coordinating, documenting, and providing care for this patient excluding time spent in the performance of separately billed services or time spent by another provider/QHP. This included personally rev iewing all current laboratories and imaging studies, medical reconciliation, outpatient chart review and discussion with specialists. This chart was completed in part utilizing Speech Voice Recognition Software. Grammatical errors, random word insertions, pronoun errors, and incomplete sentences are an occasional consequence of this system due to software limitations, ambient noise, and hardware issues. Any formal questions or concerns about the content, text, or information contained within the body of this dictation should be directly addressed to the provider for clarification. Admission and Anticipated Discharge Date Admission Date: April 03, 2025 Supervising Physician Co-Signing Physician Notes Patient seen and examined Agree with findings and plans as detailed by Simran Chaves PA-C Subjective Patient seen and examined in room N286-2. at bedside. No major complaints. Tolerating diet without issue. Some mild abdominal discomfort. Remains afebrile. Review of Systems Review of Systems: At least ten systems reviewed and negative, except as noted in the subjective section. Physical Exam Physical Exam: General: awake, alert, no apparent distress, obese female, at bedside Head: Normocephalic, atraumatic ENT: PERRL, EOMI, no pharyngeal exudate, mucous membranes moist Chest: Clear to auscultation, on room air, no adventitious breath sounds Cardiac: Regular rate and rhythm, no murmur, no JVD, normal peripheral pulses, good capillary refill Abdominal: NABS x 4 quadrants, soft, nondistended, nontender to palpation, no rebound or guarding, + PD catheter removal site dressing C/D/I, + healing laparoscopic sites without any surrounding erythema or signs of infection Extremities: Normal inspection, no peripheral edema or erythema, calfs nontender to palpation Psych: Normal mood and affect Neuro: AAO x 3, strength intact bilaterally and rated 5/5, no motor deficits, speech is clear, no peripheral sensory deficits Results & Data Results & Data Vital Signs (Past 12 Hours) Vital Signs Temp Pulse Pulse Resp BP Pulse Ox O2 Del Method 04/06/25 03:24 36.3 C L 76 20 130/76 93 Room Air 04/06/25 00:22 36.4 C L 76 20 132/82 93 Room Air 04/05/25 19:35 86 04/05/25 19:31 Room Air 04/05/25 19:29 36.6 C 89 20 131/85 92 Room Air Laboratory Results Short CBC 04/06/25 Range/Units 06:47 WBC 14.56 H (4.8-10.8) K/ul Hgb 10.5 L (12.0-16.0) g/dl Hct 31.5 L (37.0-47.0) % Plt Count 181 (130-400) K/uL [facility] 04/06/25 06:47 Sodium 140 Potassium 4.1 Chloride 102 Carbon Dioxide 24 BUN 115 H Creatinine 4.89 H* D Glucose 106 H Calcium 9.0
[2025-04-06 07:14] LABS: Hematocrit (blood only) 31.5 % (37.0-47.0); Hemoglobin 10.5 g/dl (12.0-16.0); Mean Corpuscular Hemoglobin 32.7 pg (25.0-34.0); Mean Corpuscular Volume 98.1 fL (80.0-100.0); Platelet Count 181 K/uL (130-400); RDW Standard Deviation 49.1 fL (36.4-46.3); Red Blood Count 3.21 M/uL (4.20-5.40); White Blood Count 14.56 K/ul (4.8-10.8)
[2025-04-06 07:43] LABS: Anion Gap 14.0 (3-11); Blood Urea Nitrogen 115.0 mg/dl (6-23); Calcium 9.0 mg/dl (8.6-10.3); Carbon Dioxide 24.0 mmol/L (21-32); Chloride 102.0 mmol/L (98-107); Creatinine Clr Calc Pharmacy 16.5 ml/min; Glucose 106.0 mg/dl (70-99(Fasting)); Potassium 4.1 mmol/L (3.5-5.1); Sodium 140.0 mmol/L (136-145)
--- NOTE | 2025-04-06 10:20 | Surgery Progress Note ---
Date of Service April 06, 2025 Assessment & Plan (1) Peritonitis: (2) Peritonitis associated with peritoneal dialysis: Plan: POD #1 s/p Removal of Peritoneal Dialysis Catheter. Pat is doing well. Incision CDI. She is ok for discharge to home from surgical perspective. Discharge per primary team. She will follow up with Dr. Cooney as outpatient. General Surgery will sign off. Patient seen and examined with Dr. Almendarez. Admission and Anticipated Discharge Date Admission Date: April 03, 2025 Supervising Physician Co-Signing Physician Notes Can follow-up with Dr. Gil as an outpatient She stable for discharge from surgical standpoint Subjective Pat is resting in bed, reports that she is feeling well. Feels that she is ready to go home today. Physical Exam Physical Exam: Incision of right abdomen CDI. Constitutional: WD/WN, vitals as above Results & Data Vital Signs (Past 12 Hours) Vital Signs Temp Pulse Pulse Pulse Resp BP BP 04/06/25 08:04 36.5 C 68 16 142/79 H 04/06/25 06:45 69 04/06/25 03:24 36.3 C L 76 20 130/76 04/06/25 00:22 36.4 C L 76 20 132/82 Pulse Ox O2 Del Method 04/06/25 08:04 94 Room Air 04/06/25 06:45 04/06/25 03:24 93 Room Air 04/06/25 00:22 93 Room Air PG Care Time/CCT Total # of Minutes Spent Total Time Spent with Patient: Total time spent is greater than 50% in coordination of care (as documented) at patient's floor/unit and/or counseling patient: Coding Level of Care Code 52561 Post Operative Follow-Up Diagnoses Peritonitis K65.9 Peritonitis associated with peritoneal dialysis T85.71XA
--- NOTE | 2025-04-06 10:25 | Nephrology Progress Note ---
Date of Service April 06, 2025 Assessment & Plan Admission and Anticipated Discharge Date Admission Date: April 03, 2025 Subjective Assessment & Plan (1) Peritonitis associated with peritoneal dialysis: complex/polymicrobial PD peritonitis >> growing as of 04/04 moderate Enterococcus species and few Pseudomonas aeruginosa from serosanguinous fluid leakage around PD catheter exit site on 04/01; ? ant abd wall abscess but patient remains w/o abdominal or constitutional symptoms S/p PD cath removal 04/04. On Abx currently--Dapto and Ceftazidime. Recommend ID consult. She has no Symptoms currently. No uremic Symptoms despite BUN of 119. NO need of Dialysis Currently. No surgical intervention needed. NO need for Transfer. (2) Abnormal abdominal CT scan: read as possible abscess but wondering if this represents site of recent hernia repair Any case No need of Surgical Intervention currently. NO pain and No SYmptoms at all. 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 Will revisit this again . Currently no need of Dialysis. May have to do hemodialysis--Home HD or In center HD. S-------S/p PD cath removal 04/04. She has no Symptoms currently. Eating And drinking fine. No uremic Symptoms despite BUN of 119. .Physical Exam Physical Exam: General: no distress, obese Head: normocephalic, atraumatic mucous membranes moist Neck: supple, non-tender Lungs: clear, no respiratory distress, no wheezing/rhonchi/rales CV: RRR, no murmur, no pretibial edema Abd: protuberant, soft, non-tender Neuro: A&O x 3, no focal deficits noted, normal affect Skin: warm, dry Results & Data Vital Signs (Past 12 Hours) Vital Signs Temp Pulse Pulse Pulse Resp BP BP 04/06/25 08:04 36.5 C 68 16 142/79 H 04/06/25 06:45 69 04/06/25 03:24 36.3 C L 76 20 130/76 04/06/25 00:22 36.4 C L 76 20 132/82 Pulse Ox O2 Del Method 04/06/25 08:04 94 Room Air 04/06/25 06:45 04/06/25 03:24 93 Room Air 04/06/25 00:22 93 Room Air
[2025-04-06] MEDS ORDERED: CEFTAZIDIME IP SCH (11:00)
[2025-04-06] MEDS ORDERED: DIALYSIS IP SCH (11:00)
[2025-04-06] MEDS ORDERED: VANCOMYCIN HCL IP SCH (11:00)
[2025-04-06] MEDS ORDERED: PERITONEAL 2.5% IP SCH (11:00)
[2025-04-06] MEDS: CEFEPIME 1000MG 1,000 MG/10 ML SYR IV SCH (16:10)
--- NOTE | 2025-04-06 16:24 | Communication Note ---
Date of Service: April 06, [address] Moreno, recommending switching to IV cefepime from IV ceftazidime. Continue IV daptomycin. Also discussed finding of possible soft tissue abscess seen on CTAP with Dr. Almendarez via TT. No urgent indication for I&D, could be postop seroma/fluid collection rather than abscess. Patient remains afebrile and hemodynamically stable. Recommending OP follow-up with her primary surgeon, Dr. Ramiro Cooney, for further evaluation of this.
--- NOTE | 2025-04-07 07:08 | Hospitalist Progress Note ---
Date of Service April 07, 2025 Assessment & Plan (1) Peritoneal dialysis catheter infection: (2) Peritonitis associated with peritoneal dialysis: Plan: Patient is a 60y/o F with PMHx significant for ESRD not on dialysis yet, secondary hyperparathyroidism of renal origin, gout of multiple sites due to renal impairment, morbid obesity, HTN, HLD, thyroid nodule, gout, GERD, giant cell arteritis, GERD, anemia of chronic kidney disease, low back pain with left- sided sciatica, osteopenia, third nerve palsy of right eye, ELAINE and depression who presented to the ED on 04/03/25 with concern for peritoneal infection 2/2 an infected peritoneal dialysis catheter. 03/20/25: S/p laparoscopic peritoneal dialysis catheter insertion, open umbilical hernia repair performed by Dr. Ramiro Cooney at [facility]. 03/25/25: Seen at [facility] ED with concerns regarding missing cap from her PD catheter, unclear how long this was displaced. General surgery did not feel the pt required any intervention or intraperitoneal ABX at that time. Dr. Gerda Moreland (nephro) made aware and started pt on po clindamycin and nystatin. 04/01/25: Pt noted to have purulent drainage at PD catheter exit site which was cultured. PD catheter exit site culture grew few Pseudomonas aeruginosa, moderate Enterococcus species and moderate Staphylococcus hemolyticus. -Pseudomonas with susceptibility to cefepime, ciprofloxacin, levofloxacin and Zosyn. -Enterococcus with susceptibility to ampicillin and vancomycin. -Staphylococcus haemolyticus with susceptibility to Bactrim and vancomycin. 04/02/25: Outpatient gen surg visit with Dr. Ramiro Cooney. [place] pt doing well. 04/03/25: Pt referred to ED for admission by Dr. Gerda Moreland to receive IV ABX given results of polymicrobial peritoneal fluid culture and to check CTAP. CTAP with no ascites or intraperitoneal fluid collection however did note a 3 x 1.5 cm suspected soft tissue abscess in the anterior abdominal wall. Initially was started on IV daptomycin and IV aztreonam. IV aztreonam stopped 04/04. Switched to IV ceftazidime and IP daptomycin. -After laying flat x 6 hrs PD catheter site leaked fluid and soaked dressings. -Deemed nonfunctioning PD catheter. -Was then transitioned to IV daptomycin instead. POD#2 s/p PD catheter removal performed by Dr. Eric Almendarez. Topical gentamicin to PD catheter exit site. PD catheter tip sent for culture -> preliminary result with NGTD, Gram stain with no organisms seen. Discussed case with Dr. Moreno via TT on 04/06. -Recommended transitioning IV ceftazidime to IV cefepime, continue IV daptomycin. Final ABX recommendations pending final PD catheter tip culture. Discussed finding of possible soft tissue abscess seen on CTAP with Dr. Almendarez via TT on 04/06. No urgent indication for I&D, could be postop seroma/fluid collection rather than abscess. Patient remains afebrile and hemodynamically stable. Blood cx NGTD. Recommends OP follow-up with her primary surgeon, Dr. Ramiro Cooney, for further evaluation of this >> does not need to delay DC. Continue renal meds, torsemide. No uremic symptoms despite uptrending BUN 132, Cr 5.14. No need of dialysis today but cannot r/o definitively as BUN, Cr still rising. Cannot DC from renal standpoint with rising BUN, Cr. No plans for HD catheter placement tomorrow per d/w Dr. Islas via TT. (3) Abnormal computed tomography of abdomen and pelvis: Plan: CTAP incidentally noting a right renal mass, could represent an angiomyolipoma. Also noted bilateral hypodense renal lesions which could represent proteinaceous or hemorrhagic cysts but are indeterminate in nature. Renal protocol abdominal CT or MRI with and without contrast could be obtained for further evaluation >> OP follow-up needed. (4) Pleural effusion on left: Plan: Small left pleural effusion noted on CTAP with noted subsegmental atelectasis in both lower lobes. Patient currently with no cardiopulmonary complaints, saturating well on RA. ISP ordered given atelectasis. Continue to monitor respiratory status. (5) Giant cell arteritis: Plan: Following with [facility] rheumatology, Dr. Douglas Reyna. S/p right artery biopsy on 02/07/2025. Biopsy result c/w lymphocytic mural inflammation suggestive of early/incipient temporal arteritis. Hepatitis B and QuantiFERON negative. On GIACTA 26wk prolonged prednisone taper course as well as Actemra. -Currently on 35mg prednisone daily (wk 4). -Will decrease to 30mg on 04/08/2025 x 1wk (order adjusted), followed by 25mg x 1wk and then continued taper course (outlined in Epic chart). If patient admitted for prolonged time, will need to adjust prednisone dosing in [employer] system. On PCP prophylaxis with atovaquone. Other chronic medical conditions: HLD - Holding statin while on daptomycin. GERD - Continue PPI. Gout - Continue allopurinol. ELAINE/Depression - Continue citalopram. DVT Prophylaxis: SCDs/TEDs only for now Code Status: FULL CODE PCP: Maida Ocampo PA-C Disposition: DC plans uncertain at this time pending final ID ABX recs Patient seen in collaboration with Dr. Harris. Please see addendum. I spent a total of 58 minutes coordinating, documenting, and providing care for this patient excluding time spent in the performance of separately billed services or time spent by another provider/QHP. This included personally reviewing all current laboratories and imaging studies, medical reconciliation, outpatient chart review and discussion with specialists. This chart was completed in part utilizing Speech Voice Recognition Software. Grammatical errors, random word insertions, pronoun errors, and incomplete sentences are an occasional consequence of this system due to software limitations, ambient noise, and hardware issues. Any formal questions or concerns about the content, text, or information contained within the body of this dictation should be directly addressed to the provider for clarification. Admission and Anticipated Discharge Date Admission Date: April 03, 2025 Supervising Physician Co-Signing Physician Notes Patient seen and examined Agree with findings as detailed by Simran Chaves PA-C Subjective Patient seen and examined in room N286-2. Offers no major complaints, slept well last night. Discussed ID recommendations, awaiting final PD catheter culture for determination of ABX DC plan. Review of Systems Review of Systems: At least ten systems reviewed and negative, except as noted in the subjective section. Physical Exam Physical Exam: General: awake, alert, no apparent distress, obese female, very pleasant Head: Normocephalic, atraumatic ENT: PERRL, EOMI, no pharyngeal exudate, mucous membranes moist Chest: Clear to auscultation, on room air, no adventitious breath sounds Cardiac: Regular rate and rhythm, no murmur, no JVD, normal peripheral pulses, good capillary refill Abdominal: NABS x 4 quadrants, soft, nondistended, nontender to palpation, no rebound or guarding, + PD catheter removal site dressing C/D/I, + healing abd surgical sites without any surrounding erythema or signs of infection Extremities: Normal inspection, no peripheral edema or erythema, calfs nontender to palpation Psych: Normal mood and affect Neuro: AAO x 3, strength intact bilaterally and rated 5/5, no motor deficits, speech is clear, no peripheral sensory deficits Results & Data Results & Data Vital Signs (Past 12 Hours) Vital Signs Temp Pulse Pulse Resp BP Pulse Ox O2 Del Method 04/07/25 03:47 36.5 C 72 20 145/82 H 94 Room Air 04/07/25 00:19 36.7 C 70 18 127/85 93 Room Air 04/06/25 22:00 72 04/06/25 21:30 Room Air 04/06/25 19:33 36.6 C 79 20 147/81 H 96 Room Air Laboratory Results Short CBC 04/07/25 Range/Units 06:23 WBC 13.65 H (4.8-10.8) K/ul Hgb 10.3 L (12.0-16.0) g/dl Hct 32.8 L (37.0-47.0) % Plt Count 175 (130-400) K/uL BMP 04/07/25 06:23 Sodium 140 Potassium 3.8 Chloride 101 Carbon Dioxide 24 BUN 132 H Creatinine 5.14 H* Glucose 114 H Calcium 8.8 Liver Function 04/07/25 Range/Units 06:23 Total Bilirubin 0.3 (0.2-1.0) mg/dl AST 8 L (13-39) U/L ALT 9 (7-52) U/L Alkaline Phosphatase 67 (34-104) U/L Albumin 3.3 L (3.4-5.0) gm/dl
[2025-04-07 07:33] LABS: Hematocrit (blood only) 32.8 % (37.0-47.0); Hemoglobin 10.3 g/dl (12.0-16.0); Immature Granulocytes # (auto) 0.08 K/uL (0.01-0.20); Immature Granulocytes % (auto) 0.6 %; Mean Corpuscular Hemoglobin 31.2 pg (25.0-34.0); Mean Corpuscular Volume 99.4 fL (80.0-100.0); Platelet Count 175 K/uL (130-400); RDW Standard Deviation 50.2 fL (36.4-46.3); Red Blood Count 3.30 M/uL (4.20-5.40); White Blood Count 13.65 K/ul (4.8-10.8)
[2025-04-07 07:53] LABS: Alanine Aminotransferase 9.0 U/L (7-52); Albumin Globulin Ratio 0.9 (0.9-2); Albumin Level 3.3 gm/dl (3.4-5.0); Alkaline Phosphatase 67.0 U/L (34-104); Bilirubin,Total 0.3 mg/dl (0.2-1.0); Calcium 8.8 mg/dl (8.6-10.3); Carbon Dioxide 24.0 mmol/L (21-32); Chloride 101.0 mmol/L (98-107); Creatinine Clr Calc Pharmacy 15.7 ml/min; Globulin 3.6 gm/dl (2.5-4.0); Glucose 114.0 mg/dl (70-99(Fasting)); Potassium 3.8 mmol/L (3.5-5.1); Sodium 140.0 mmol/L (136-145); Total Protein 6.9 gm/dl (6.0-8.3)
[2025-04-07 08:23] LABS: Anion Gap 15.0 (3-11); Blood Urea Nitrogen 132.0 mg/dl (6-23)
--- NOTE | 2025-04-07 12:29 | Nephrology Progress Note ---
Date of Service April 07, 2025 Assessment & Plan Admission and Anticipated Discharge Date Admission Date: April 03, 2025 Subjective Assessment & Plan (1) Peritonitis associated with peritoneal dialysis: complex/polymicrobial PD peritonitis >> growing as of 04/04 moderate Enterococcus species and few Pseudomonas aeruginosa from serosanguinous fluid leakage around PD catheter exit site on 04/01; ? ant abd wall abscess but patient remains w/o abdominal or constitutional symptoms S/p PD cath removal 04/04. On Abx currently--Dapto and Cefepime now as per ID She has no Symptoms currently. No uremic Symptoms despite very high BUN 132. Creat also went up a bit. NO need of Dialysis today but cannot rule out definitively as BUN and creat is still rising. Also we dont usually discharge with still rising BUN and Creat Will need more monitoring. No surgical intervention needed. NO need for Transfer. will f/u With Dr Cooney post discharge (2) Abnormal abdominal CT scan: read as possible abscess but wondering if this represents site of recent hernia repair Any case No need of Surgical Intervention currently. NO pain and No Symptoms at all. 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 Will revisit this again . Currently no need of Dialysis. May have to do hemodialysis--Home HD or In center HD. S-------S/p PD cath removal 04/04. She has no Symptoms currently. Eating And drinking fine. No uremic Symptoms despite BUN of 119. .Physical Exam Physical Exam: General: no distress, obese Head: normocephalic, atraumatic mucous membranes moist Neck: supple, non-tender Lungs: clear, no respiratory distress, no wheezing/rhonchi/rales CV: RRR, no murmur, no pretibial edema Abd: protuberant, soft, non-tender Neuro: A&O x 3, no focal deficits noted, normal affect Skin: warm, dry Results & Data Vital Signs (Past 12 Hours) Vital Signs Temp Pulse Pulse Resp BP BP Pulse Ox 04/07/25 11:20 37.1 C 72 20 133/82 96 04/07/25 08:09 36.4 C L 67 18 157/89 H 99 04/07/25 06:45 63 04/07/25 03:47 36.5 C 72 20 145/82 H 94 O2 Del Method 04/07/25 11:20 Room Air 04/07/25 08:09 Room Air 04/07/25 06:45 04/07/25 03:47 Room Air
[2025-04-08 08:00] LABS: Hematocrit (blood only) 36.3 % (37.0-47.0); Hemoglobin 11.4 g/dl (12.0-16.0); Mean Corpuscular Hemoglobin 31.1 pg (25.0-34.0); Mean Corpuscular Volume 99.2 fL (80.0-100.0); Platelet Count 200 K/uL (130-400); RDW Standard Deviation 49.1 fL (36.4-46.3); Red Blood Count 3.66 M/uL (4.20-5.40); White Blood Count 16.27 K/ul (4.8-10.8)
[2025-04-08 08:36] LABS: Anion Gap 16.0 (3-11); Blood Urea Nitrogen 144.0 mg/dl (6-23); Calcium 8.9 mg/dl (8.6-10.3); Carbon Dioxide 25.0 mmol/L (21-32); Chloride 98.0 mmol/L (98-107); Creatinine Clr Calc Pharmacy 14.1 ml/min; Glucose 101.0 mg/dl (70-99(Fasting)); Potassium 3.9 mmol/L (3.5-5.1); Sodium 139.0 mmol/L (136-145)
--- NOTE | 2025-04-08 11:34 | Nephrology Progress Note ---
Date of Service April 08, 2025 Assessment & Plan (1) ESRD (end stage renal disease): Plan: not yet on dialysis; unable to start PD as planned >> her BUN has climbed nearly 50 points since admission to 144 and creat up from 4.2 to 5.7 I spent 20 min today discussing different dialysis modalities; while she hopes to go back to PD at some point, she understands we need to start HD and need to do this w/ a tunnelled catheter she prefers to do home HD at [facility]; we will start training in 1-2 weeks and take care of her on in center side until training can start; her son will be caregiver. She has already had a home visit for PD so apart from a few water hooker off questions >consulted vascular >pls have case mgt arrange OP in - center HD at [facility]; will pivot to training for HHD planned tentatively for 04/15 >she understands she still needs an AVF irregardless of whether goes back to PD but will do that after HHD training >phos ordered for tomorrow am Care coordinated repeatedly w/ [employer] re timing of dialysis start, vascular consult needs and d/c dispo, inf dz recs via TText; we are in agreement. (2) Peritonitis associated with peritoneal dialysis: Plan: complex/polymicrobial PD peritonitis >> growing as of 04/04 moderate Enterococcus species and Pseudomonas aeruginosa from serosanguinous fluid leakage around PD catheter exit site on 04/01 (in [facility] EHR) pt noted 5 days post op to have no cap on PD catheter of unknown duration; s/p transfer set change x 2 and 1 week of oral abtx [employer] S/p PD cath removal 04/04. On Abx currently--Dapto and Cefepime now as per ID >> ID to see her today She has no Symptoms currently. No uremic Symptoms despite very high BUN 144 >> BU was 93 on presentation; steady rise in this and creat. No surgical intervention needed. >>>>f/u ID recs; try to avoid PICC if prolonged abtx >> can hopefully have further abtx as needed on tx (3) Abnormal abdominal CT scan: Plan: read as possible abscess but wondering if this represents site of recent hernia repair - ?OP gen surg f/u? 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 and BL renal masses indeterminate masses >> OP follow up (5) S/P hernia repair: Plan: she had 03/20/25 strangulated umbilical hernia repair at [facility] (6) Temporal giant cell arteritis: Plan: on high dose steroid taper and PJP prophylaxis > continue prednisone and atovaquone Admission and Anticipated Discharge Date Admission Date: April 03, 2025 Subjective feels well > no n/v, no decreased po, no itching, no sob, no edema, no decreased uop, no confusion, no myoclonic jerks Review of Systems 2 Review of Systems: All systems reviewed & are unremarkable except as noted in Subjective Physical Exam 2 Constitutional: well developed, well nourished, + morbidly obese and cooperative; no acute distress Eyes: EOM intact bilaterally ENMT: Ears: no external ear abnormality Nose: no external nose abnormality Mouth: + dry oral mucous membranes Neck: no nuchal rigidity Respiratory: normal respiratory effort Auscultation: + diminished lung sounds Cardiovascular: RRR, no murmur, no edema Gastrointestinal (Abdomen): Inspection/Auscultation: normal bowel sounds P ercussion/Palpation: abdomen soft; abdomen nontender Musculoskeletal: Extremities: strength 5/5 throughout Skin: no rashes, warm and dry Psychiatric: A+Ox3, euthymic affect Results & Data Vital Signs (Past 12 Hours) Vital Signs Temp Pulse Pulse Pulse Resp BP BP 04/08/25 08:01 36.5 C 75 20 165/93 H 04/08/25 07:16 63 04/08/25 04:23 36.4 C L 70 20 136/82 04/08/25 00:00 78 04/07/25 23:51 36.6 C 76 20 138/91 Pulse Ox O2 Del Method 04/08/25 08:01 98 Room Air 04/08/25 07:16 04/08/25 04:23 95 Room Air 04/08/25 00:00 04/07/25 23:51 93 Room Air Laboratory Results 04/08/25 07:29 04/08/25 07:29
--- NOTE | 2025-04-08 14:25 | Hospitalist Progress Note ---
Date of Service April 08, 2025 Assessment & Plan (1) Peritoneal dialysis catheter infection: (2) Peritonitis associated with peritoneal dialysis: Plan: Patient is a 60y/o F with PMHx significant for ESRD not on dialysis yet, secondary hyperparathyroidism of renal origin, gout of multiple sites due to renal impairment, morbid obesity, HTN, HLD, thyroid nodule, gout, GERD, giant cell arteritis, GERD, anemia of chronic kidney disease, low back pain with left- sided sciatica, osteopenia, third nerve palsy of right eye, ELAINE and depression who presented to the ED on 04/03/25 with concern for peritoneal infection 2/2 an infected peritoneal dialysis catheter. 03/20/25: S/p laparoscopic peritoneal dialysis catheter insertion, open umbilical hernia repair performed by Dr. Ramiro Cooney at [facility]. 03/25/25: Seen at [facility] ED with concerns regarding missing cap from her PD catheter, unclear how long this was displaced. General surgery did not feel the pt required any intervention or intraperitoneal ABX at that time. Dr. Gerda Moreland (nephro) made aware and started pt on po clindamycin and nystatin. 04/01/25: Pt noted to have purulent drainage at PD catheter exit site which was cultured. PD catheter exit site culture grew few Pseudomonas aeruginosa, moderate Enterococcus species and moderate Staphylococcus hemolyticus. -Pseudomonas with susceptibility to cefepime, ciprofloxacin, levofloxacin and Zosyn. -Enterococcus with susceptibility to ampicillin and vancomycin. -Staphylococcus haemolyticus with susceptibility to Bactrim and vancomycin. 04/02/25: Outpatient gen surg visit with Dr. Ramiro Cooney. [place] pt doing well. 04/03/25: Pt referred to ED for admission by Dr. Gerda Moreland to receive IV ABX given results of polymicrobial peritoneal fluid culture and to check CTAP. CTAP with no ascites or intraperitoneal fluid collection however did note a 3 x 1.5 cm suspected soft tissue abscess in the anterior abdominal wall. Previous provider discussed finding of possible soft tissue abscess seen on CTAP with Dr. Almendarez via TT on 04/06. No urgent indication for I&D, could be postop seroma/fluid collection rather than abscess. Initially was started on IV daptomycin and IV aztreonam. IV aztreonam stopped 04/04. Switched to IV ceftazidime and IP daptomycin. -After laying flat x 6 hrs PD catheter site leaked fluid and soaked dressings. -Deemed nonfunctioning PD catheter. -Was then transitioned to IV daptomycin instead. 04/05/25: s/p PD catheter removal performed by Dr. Eric Almendarez. Topical gentamicin to PD catheter exit site. PD catheter tip sent for culture -> preliminary result with NGTD, Gram stain with no organisms seen. Previous provider discussed case with Dr. Moreno via TT on 04/06. -Recommended transitioning IV ceftazidime to IV cefepime, continue IV daptomycin. -Final ABX recommendations pending final PD catheter tip culture. Patient remains afebrile and hemodynamically stable. Blood cx NGTD. Continue renal meds, torsemide. No uremic symptoms despite uptrending BUN 132 -> 144, Cr 5.14 -> 5.6 K+ 3.9, HCO3 25 Dialysis plans as per nephro (3) Abnormal computed tomography of abdomen and pelvis: Plan: CTAP incidentally noting a right renal mass, could represent an angiomyolipoma. Also noted bilateral hypodense renal lesions which could represent proteinaceous or hemorrhagic cysts but are indeterminate in nature. Renal protocol abdominal CT or MRI with and without contrast could be obtained for further evaluation >> OP follow-up needed. (4) Pleural effusion on left: Plan: Small left pleural effusion noted on CTAP with noted subsegmental atelectasis in both lower lobes. Patient currently with no cardiopulmonary complaints, saturating well on RA. ISP ordered given atelectasis. Continue to monitor respiratory status. (5) Giant cell arteritis: Plan: Following with [facility] rheumatology, Dr. Douglas Reyna. S/p right artery biopsy on 02/07/2025. Biopsy result c/w lymphocytic mural inflammation suggestive of early/incipient temporal arteritis. Hepatitis B and QuantiFERON negative. On GIACTA 26wk prolonged prednisone taper course as well as Actemra. -Decrease to 30mg on 04/08/2025 x 1wk, followed by 25mg x 1wk and then continued taper course (outlined in Epic chart). If patient admitted for prolonged time, will need to adjust prednisone dosing in [employer] system. On PCP prophylaxis with atovaquone. Other chronic medical conditions: HLD - Holding statin while on daptomycin. GERD - Continue PPI. Gout - Continue allopurinol. ELAINE/Depression - Continue citalopram. DVT Prophylaxis: SCDs/TEDs only for now Code Status: FULL CODE PCP: Maida Ocampo PA-C Disposition: DC plans uncertain at this time pending final ID ABX recs, dialysis plans Patient seen in collaboration with Dr. Harris. I spent a total of 35 minutes coordinating, documenting, and providing care for this patient excluding time spent in the performance of separately billed services. This included personally reviewing all current laboratories and imaging studies, medication reconciliation, outpatient chart review, and discussion with specialists. Admission and Anticipated Discharge Date Admission Date: April 03, 2025 Subjective Follow-up for peritonitis, peritoneal dialysis catheter infection. Patient seen and examined. Resting in bed. Offers no complaints. Denies chest pain and shortness of breath. No abdominal pain or nausea. Physical Exam Constitutional: WD/WN, vitals as above no acute distress Respiratory: normal respiratory effort; no respiratory distress Auscultation: + diminished lung sounds Cardiovascular: Rate/Rhythm: regular rate and regular rhythm Vessels: normal peripheral pulses Extremities: no edema Gastrointestinal (Abdomen): Percussion/Palpation: abdomen soft; abdomen nontender Skin: no rashes, warm and dry Neurologic: no focal motor deficits Psychiatric: A+Ox3, euthymic affect Results & Data Results & Data Vital Signs (Past 12 Hours) Vital Signs Temp Pulse Pulse Pulse Resp BP Pulse Ox 04/08/25 11:59 36.6 C 66 18 144/86 H 98 04/08/25 08:01 36.5 C 75 20 165/93 H 98 04/08/25 07:16 63 04/08/25 04:23 36.4 C L 70 20 136/82 95 O2 Del Method 04/08/25 11:59 Room Air 04/08/25 08:01 Room Air 04/08/25 07:16 04/08/25 04:23 Room Air Laboratory Results Short CBC 04/08/25 Range/Units 07:29 WBC 16.27 H (4.8-10.8) K/ul Hgb 11.4 L (12.0-16.0) g/dl Hct 36.3 L (37.0-47.0) % Plt Count 200 (130-400) K/uL BMP 04/08/25 07:29 Sodium 139 Potassium 3.9 Chloride 98 Carbon Dioxide 25 BUN 144 H Creatinine 5.66 H* D Glucose 101 H Calcium 8.9
--- NOTE | 2025-04-08 14:57 | Infectious Disease Consult ---
Date of Service April 08, 2025 Telehealth Information I performed this visit using a real-time telehealth connection between my location and the patients location ([facility]). After connecting through interactive tele-video, patient was identified by name and date of and/or wristband check.Patient (or authorized healthcare business office representative) was informed that this was a telemedicine visit and it was being conducted confidentially over secure lines. My office door was closed and no one else was present in the room with me.Patient (or authorized healthcare business office representative) provided consent to proceed with the visit, expressed an understanding of privacy and security of the telemedicine visit, and gave permission to have a hospital business office representative in the room in order to assist with the visit and to conduct portions of the visit, as needed. I informed the patient (or authorized healthcare business office representative) that I reviewed their record and presented the opportunity for them to ask any questions regarding the visit today. The patient agreed to participate. Assessment & Plan (1) Pleural effusion on left: (2) Abnormal computed tomography of abdomen and pelvis: (3) Giant cell arteritis: (4) Peritoneal dialysis catheter infection: Plan Assessment: Patient is 60 year old female with PMH ESRD, not on dialysis yet, HTN, HLD, gout, GERD, giant cell arteritis, anxiety, depression, morbid obesity, who presented to [facility] on 04/03/2025 with concern for peritoneal infection. In the [facility] ED, pt's WBC was elevated to 17 and PD site looked infection and was painful. CT abd/pelvis which was relatively benign. Pt was admitted to [facility] and Gen surgery was consulted. Pt had PD catheter removed on 04/05/2025. Plan for HD from now on. Pt currently on Cefepime and Daptomycin IV. Plan: - Recommend Cefepime and Daptomycin IV for 2 weeks from PD catheter removal on 04/05/2024. End date: 04/19/2025. - Recommend CBC with diff, CMP, and CK weekly. - we will sign off, no need for ID clinic appointment, please call with issues, concerns, or questions for ID physician communications billing analyst for teledoc services. History of Present Illness History of Present Illness Reason on Consult: Peritonitis, P.aeurinosa, Enterococcus, S. haemoly Patient is 60 year old female with PMH ESRD, not on dialysis yet, HTN, HLD, gout, GERD, giant cell arteritis, anxiety, depression, morbid obesity, who presented to [facility] on 04/03/2025 with concern for peritoneal infection. Per notes and chart review, pt had a laparoscopic Insertion Intraperitoneal Cat heter and umbilical Hernia Repair at [facility] on 03/30/2025. Later in her course peritoneal nurse had found that patient was found to be missing cap from her PD catheter postsurgery and it was uncertain how long this was displaced. Patient was seen at [facility] ER 03/25/25 and general surgery was consulted and felt patient did not require any interventions or intraperitoneal antibiotics at that time. 03/25/2025 Nephrology, Dr. Moreland recommended oral clindamycin, nystatin. Pt noted to have purulent drainage at PD cath exit site. 04/01/2025 PD cath exit site culture +moderate Enterococcus species, few gram-negative bacilli. 04/02/25 outpatient general surgery visit with Dr Ramiro Cooney felt pt doing well. In the [facility] ED, pt's WBC was elevated to 17 and PD site looked infection and was painful. CT abd/pelvis which was relatively benign. Pt was admitted to [facility] and Gen surgery was consulted. Pt had PD catheter removed on 04/05/2025. Plan for HD from now on. Pt currently on Cefepime and Daptomycin IV. Plan for 2 weeks of IV antibiotics s/p PD catheter removal. Allergies Allergy/AdvReac Type Severity Reaction Status Date / Time Sulfa (Sulfonamide Allergy Severe EDEMA OF Verified 04/03/25 17:54 Antibiotics) AIRWAY Penicillins Allergy Intermediate RASH AND Verified 04/03/25 17:54 SWELLING Home Medications Medication Instructions Recorded Confirmed Type allopurinol 100 mg tablet 200 mg PO DAILY 04/03/25 04/03/25 History atorvastatin 20 mg tablet 20 mg PO DAILY 04/03/25 04/03/25 History atovaquone 750 mg/5 mL oral 1,500 mg PO QAM 04/03/25 04/03/25 History suspension calcium acetate(phosphat bind) 667 1,334 mg PO TIDM 04/03/25 04/03/25 History mg capsule cholecalciferol (vitamin D3) 25 25 mcg PO DAILY 04/03/25 04/03/25 History mcg (1,000 unit) capsule (Vitamin D3) citalopram 40 mg tablet (Celexa) 40 mg PO DAILY 04/03/25 04/03/25 History clindamycin HCl 150 mg capsule 450 mg PO TID 04/03/25 04/03/25 History famotidine 20 mg tablet 20 mg PO Q OTHER DAY 04/03/25 04/03/25 History folic acid 1 mg tablet 1 mg PO DAILY 04/03/25 04/03/25 History gabapentin 300 mg capsule 300 mg PO DAILY 04/03/25 04/03/25 History lansoprazole 30 mg capsule,delayed 30 mg PO DAILYBB 04/03/25 04/03/25 History release (Prevacid) lorazepam 0.5 mg tablet 0.5 mg PO HS PRN Anxiety 04/03/25 04/03/25 History nystatin 100,000 unit/mL oral 5 ml mucous membrane QID 04/03/25 04/03/25 History suspension ondansetron 4 mg disintegrating 4 mg PO Q8H PRN NAUSEA/VOMITING 04/03/25 04/03/25 History tablet prednisone 10 mg tablet 30 mg PO DAILY 04/03/25 04/03/25 History prednisone 5 mg tablet 5 mg PO DAILY 04/03/25 04/03/25 History timolol maleate 0.5 % eye drops 1 drp OPB BID 04/03/25 04/03/25 History tocilizumab 162 mg/0.9 mL 162 mg subcut WK 04/03/25 04/03/25 History subcutaneous pen injector (Actemra ACTPen) torsemide 100 mg tablet 100 mg PO QAM 04/03/25 04/03/25 History Patient History Medical History (Updated 04/07/25 @ 07:11 by Simran Chaves PA-C) Anemia HTN (hypertension) ESRD (end stage renal disease) Anxiety and depression Temporal giant cell arteritis Dyslipidemia CKD (chronic kidney disease), stage IV Surgical History (Updated 04/05/25 @ 10:13 by Karla Hernandez RN) Encounter for peritoneal dialysis catheter insertion (04/05/25) Removal of peritoneal dialysis catheter Dr. Eric Almendarez History of hernia repair History of esophagogastroduodenoscopy (EGD) Family History Other Cancer Diabetes Social History Smoking Status: Never smoker Hx Alcohol Use: No Hx Substance Use: No Preferred Language: Kiswahili Communication Ability: Effective Network Operations Center Engineer Required: No Beliefs That Will Affect Care: None Current Living Situation: Spouse Current Living Situation Comment: home with Other Information That Helps Us Care for You: No Feels Safe at Home: Yes Safety Concerns: Feels Safe At This Time Assistive Devices: None Results & Data Vital Signs (Past 12 Hours) Vital Signs Temp Pulse Pulse Pulse Resp BP Pulse Ox 04/08/25 12:36 77 04/08/25 11:59 36.6 C 66 18 144/86 H 98 04/08/25 08:01 36.5 C 75 20 165/93 H 98 04/08/25 07:16 63 04/08/25 04:23 36.4 C L 70 20 136/82 95 O2 Del Method 04/08/25 12:36 04/08/25 11:59 Room Air 04/08/25 08:01 Room Air 04/08/25 07:16 04/08/25 04:23 Room Air Laboratory Results [facility] Exit Site culture on 04/01/2025 Culture Growth Few Pseudomonas aeruginosa Abnormal Moderate Enterococcus species Abnormal Moderate Staphylococcus haemolyticus Abnormal This result may not be clinically significant and should be interpreted in the context of the microbe detected. Resulting Agency: Susceptibility Pseudomonas aeruginosa Enterococcus species Staphylococcus haemolyticus MICROBROTH DILUTIONS MICROBROTH DILUTIONS MICROBROTH DILUTIONS Ampicillin Susceptible Cefepime Susceptible Ciprofloxacin Susceptible Clindamycin Resistant Erythromycin Resistant Levofloxacin Susceptible Oxacillin Resistant 1 Piperacillin Tazobactam Susceptible Tetracycline Resistant Trimeth/Sulfamethoxazole Susceptible Vancomycin Susceptible Susceptible 04/05/25 Unknown Gram Stain - Final Peritoneal dialysis fluid Aerobic and Anaerobic Culture - Preliminary Staphylococcus epidermidis 04/08/25 07:29 WBC 16.27 H RBC 3.66 L Hgb 11.4 L Hct 36.3 L MCV 99.2 MCH 31.1 MCHC 31.4 L RDW Std Deviation 49.1 H RDW Coeff of Kylah 13.5 Plt Count 200 MPV 13.0 H Sodium 139 Potassium 3.9 Chloride 98 Carbon Dioxide 25 Anion Gap 16 H BUN 144 H Creatinine 5.66 H* D Est Cr Clr Drug Dosing 14.1 eGFR 7.96 BUN/Creatinine Ratio 25.4 H Glucose 101 H Calcium 8.[address] abd/pelvis on 04/03/2025 Impression: 1. 3 x 1.5 cm suspected soft tissue abscess in the anterior abdominal wall 2. Peritoneal dialysis catheter. No ascites or intra-peritoneal fluid collection is seen 3. Right renal mass that may represent an angiomyolipoma. There are also bilateral hyperdense renal lesions that may represent proteinaceous or hemorrhagic cysts but are indeterminate in nature. Renal protocol abdominal CT or MRI with and without contrast could be obtained for further evaluation 4. Diverticulosis without evidence of diverticulitis 5. Small left pleural effusion Medications Administered Home Medications Medication Instructions Recorded Confirmed Last Taken allopurinol 100 mg tablet 200 mg PO DAILY 04/03/25 04/03/25 04/03/25 atorvastatin 20 mg tablet 20 mg PO DAILY 04/03/25 04/03/25 04/03/25 atovaquone 750 mg/5 mL oral 1,500 mg PO QAM 04/03/25 04/03/25 04/03/25 suspension calcium acetate(phosphat bind) 667 1,334 mg PO TIDM 04/03/25 04/03/25 04/03/25 12:00 mg capsule cholecalciferol (vitamin D3) 25 25 mcg PO DAILY 04/03/25 04/03/25 04/03/25 mcg (1,000 unit) capsule (Vitamin D3) citalopram 40 mg tablet (Celexa) 40 mg PO DAILY 04/03/25 04/03/25 04/03/25 clindamycin HCl 150 mg capsule 450 mg PO TID 04/03/25 04/03/25 04/03/25 12:00 famotidine 20 mg tablet 20 mg PO Q OTHER DAY 04/03/25 04/03/25 04/02/25 folic acid 1 mg tablet 1 mg PO DAILY 04/03/25 04/03/25 04/03/25 gabapentin 300 mg capsule 300 mg PO DAILY 04/03/25 04/03/25 04/03/25 lansoprazole 30 mg capsule,delayed 30 mg PO DAILYBB 04/03/25 04/03/25 04/03/25 release (Prevacid) lorazepam 0.5 mg tablet 0.5 mg PO HS PRN Anxiety 04/03/25 04/03/25 Unknown nystatin 100,000 unit/mL oral 5 ml mucous membrane QID 04/03/25 04/03/25 04/03/25 12:00 suspension ondansetron 4 mg disintegrating 4 mg PO Q8H PRN NAUSEA/VOMITING 04/03/25 04/03/25 Unknown tablet prednisone 10 mg tablet 30 mg PO DAILY 04/03/25 04/03/25 04/03/25 prednisone 5 mg tablet 5 mg PO DAILY 04/03/25 04/03/25 04/03/25 timolol maleate 0.5 % eye drops 1 drp OPB BID 04/03/25 04/03/25 04/03/25 08:00 tocilizumab 162 mg/0.9 mL 162 mg subcut WK 04/03/25 04/03/25 Unknown subcutaneous pen injector (Actemra ACTPen) torsemide 100 mg tablet 100 mg PO QAM 04/03/25 04/03/25 04/03/25 Active Medications Generic Name Dose Route Start Last Admin Trade Name Freq PRN Reason Stop Dose Admin Acetaminophen 650 mg 04/03/25 21:41 04/04/25 20:38 Acetaminophen 325 Mg Tab PO 05/03/25 21:40 650 mg Q4H PRN Administration Pain or Fever Allopurinol 200 mg 04/04/25 09:00 04/08/25 09:17 Allopurinol 100 Mg Tab PO 05/04/25 08:59 200 mg DAILY AWA Administration Atovaquone 1,500 mg 04/04/25 09:00 04/08/25 09:20 Atovaquone 750 Mg/5 Ml Udc PO 05/04/25 08:59 1,500 mg QAM AWA Administration Calcium Acetate 1,334 mg 04/04/25 08:00 04/08/25 17:01 Calcium Acetate 667 Mg Cap/Tab PO 05/04/25 07:59 1,334 mg TIDM AWA Administration Citalopram Hydrobromide 40 mg 04/04/25 09:00 04/08/25 09:18 Citalopram 40 Mg Tab PO 05/04/25 08:59 40 mg DAILY AWA Administration Famotidine 20 mg 04/04/25 09:00 04/08/25 09:23 Famotidine 20 Mg Tab PO 05/04/25 08:59 20 mg Q48H AWA Administration Folic Acid 1 mg 04/04/25 09:00 04/08/25 09:18 Folic Acid 1 Mg Tab PO 05/04/25 08:59 1 mg DAILY AWA Administration Gabapentin 300 mg 04/04/25 09:00 04/08/25 09:18 Gabapentin 300 Mg Cap PO 05/04/25 08:59 300 mg DAILY AWA Administration Gentamicin Sulfate 1 appln 04/05/25 09:00 04/08/25 09:19 Gentamicin Sulfate 0.1% Cr 15 Gm Tube EXT 04/15/25 08:59 1 appln DAILY AWA Administration Daptomycin 500 mg/ Syringe 10 mls @ 5 mls/min 04/05/25 11:00 04/07/25 11:52 IV 04/15/25 10:59 5 mls/min Q48H AWA Administration Protocol Lorazepam 0.5 mg 04/03/25 21:41 04/07/25 21:07 Lorazepam 0.5 Mg Tab PO 05/03/25 21:40 0.5 mg HS PRN Administration Anxiety Nystatin 5 ml 04/03/25 21:41 04/08/25 17:01 Nystatin Susp 500,000 U/5 Ml Udc PO 04/13/25 21:40 5 ml QID AWA Administration Ondansetron HCl 4 mg 04/03/25 21:41 04/04/25 10:58 Ondansetron Inj 2 Mg/Ml 2 Ml Vial IV 05/03/25 21:40 4 mg Q6H PRN Administration Nausea Pantoprazole Sodium 40 mg 04/04/25 06:30 04/07/25 06:21 Pantoprazole 40 Mg Tab PO 05/04/25 06:29 40 mg DAILYBB AWA Administration Prednisone 30 mg 04/04/25 09:00 04/08/25 09:16 Prednisone 10 Mg Tablet PO 05/04/25 08:59 30 mg DAILY AWA Administration Timolol Maleate 1 drops 04/03/25 21:41 04/08/25 09:18 Timolol Maleate 0.5% Op Soln 5 Ml Btl OPB 05/03/25 21:40 1 drops BID AWA Administration Torsemide 100 mg 04/04/25 09:00 04/08/25 09:18 Torsemide 100 Mg Tab PO 05/04/25 08:59 100 mg QAM AWA Administration Vitamin D 25 mcg 04/04/25 09:00 04/08/25 09:18 Cholecalciferol 25 Mcg (1000 Units) Tab PO 05/04/25 08:59 25 mcg DAILY AWA Administration
[2025-04-08] MEDS: CEFEPIME 1000MG 1,000 MG/10 ML SYR IV SCH (21:03)
[2025-04-09 08:12] LABS: Hematocrit (blood only) 33.3 % (37.0-47.0); Hemoglobin 10.8 g/dl (12.0-16.0); Mean Corpuscular Hemoglobin 31.1 pg (25.0-34.0); Mean Corpuscular Volume 96.0 fL (80.0-100.0); Platelet Count 198 K/uL (130-400); RDW Standard Deviation 48.4 fL (36.4-46.3); Red Blood Count 3.47 M/uL (4.20-5.40); White Blood Count 14.97 K/ul (4.8-10.8)
--- NOTE | 2025-04-09 08:12 | History & Physical Report ---
Date of Service April 09, 2025 Assessment & Plan (1) ESRD (end stage renal disease) on dialysis: Plan: Patient is here for a permcath insertion. I have discussed the risks options and benefits of the procedure with the patient. The patient understands the risks options and benefits and agrees to the procedure. Admission and Anticipated Discharge Date Admission Date: April 03, 2025 History of Present Illness Chief Complaint: End stage renal disease Primary Care Provider: Maida Ocampo PA-C Patient is a 60yo dialysis patient who had an infected peritoneal dialysis catheter that was removed due to infection. She now needs a catheter for dialysis Allergies Allergy/AdvReac Type Severity Reaction Status Date / Time Sulfa (Sulfonamide Allergy Severe EDEMA OF Verified 04/03/25 17:54 Antibiotics) AIRWAY Penicillins Allergy Intermediate RASH AND Verified 04/03/25 17:54 SWELLING Home Medications Medication Instructions Recorded Confirmed Type allopurinol 100 mg tablet 200 mg PO DAILY 04/03/25 04/03/25 History atorvastatin 20 mg tablet 20 mg PO DAILY 04/03/25 04/03/25 History atovaquone 750 mg/5 mL oral 1,500 mg PO QAM 04/03/25 04/03/25 History suspension calcium acetate(phosphat bind) 667 1,334 mg PO TIDM 04/03/25 04/03/25 History mg capsule cholecalciferol (vitamin D3) 25 25 mcg PO DAILY 04/03/25 04/03/25 History mcg (1,000 unit) capsule (Vitamin D3) citalopram 40 mg tablet (Celexa) 40 mg PO DAILY 04/03/25 04/03/25 History clindamycin HCl 150 mg capsule 450 mg PO TID 04/03/25 04/03/25 History famotidine 20 mg tablet 20 mg PO Q OTHER DAY 04/03/25 04/03/25 History folic acid 1 mg tablet 1 mg PO DAILY 04/03/25 04/03/25 History gabapentin 300 mg capsule 300 mg PO DAILY 04/03/25 04/03/25 History lansoprazole 30 mg capsule,delayed 30 mg PO DAILYBB 04/03/25 04/03/25 History release (Prevacid) lorazepam 0.5 mg tablet 0.5 mg PO HS PRN Anxiety 04/03/25 04/03/25 History nystatin 100,000 unit/mL oral 5 ml mucous membrane QID 04/03/25 04/03/25 History suspension ondansetron 4 mg disintegrating 4 mg PO Q8H PRN NAUSEA/VOMITING 04/03/25 04/03/25 History tablet prednisone 10 mg tablet 30 mg PO DAILY 04/03/25 04/03/25 History prednisone 5 mg tablet 5 mg PO DAILY 04/03/25 04/03/25 History timolol maleate 0.5 % eye drops 1 drp OPB BID 04/03/25 04/03/25 History tocilizumab 162 mg/0.9 mL 162 mg subcut WK 04/03/25 04/03/25 History subcutaneous pen injector (Actemra ACTPen) torsemide 100 mg tablet 100 mg PO QAM 04/03/25 04/03/25 History Past Med/Surg History Problem List (Updated 04/09/25 @ 08:11 by Toby Lopez MD) ESRD (end stage renal disease) on dialysis Pleural effusion on left Abnormal computed tomography of abdomen and pelvis Giant cell arteritis Peritoneal dialysis catheter infection Encounter for pre-operative examination S/P hernia repair Bilateral renal masses Peritonitis associated with peritoneal dialysis Abnormal abdominal CT scan (Acute) Elevated lactic acid level (Acute) Leukocytosis (Acute) Chronic renal failure (Acute) Peritonitis (Acute) Medical History Anemia HTN (hypertension) ESRD (end stage renal disease) Anxiety and depression Temporal giant cell arteritis Dyslipidemia CKD (chronic kidney disease), stage IV Surgical History Encounter for peritoneal dialysis catheter insertion (04/05/25) Removal of peritoneal dialysis catheter Dr. Eric Almendarez History of hernia repair History of esophagogastroduodenoscopy (EGD) Family History Other Cancer Diabetes Social History Smoking Status: Never smoker Hx Alcohol Use: No Hx Substance Use: No Preferred Language: Syriac Communication Ability: Effective Hyperbaric Technologist Required: No Beliefs That Will Affect Care: None Current Living Situation: Spouse Current Living Situation Comment: home with Other Information That Helps Us Care for You: No Feels Safe at Home: Yes Safety Concerns: Feels Safe At This Time Assistive Devices: None Review of Systems All systems reviewed & are unremarkable except as noted in HPI & below Physical Exam Constitutional: WD/WN, vitals as above Respiratory: normal respiratory effort, lungs clear to auscultation Cardiovascular: RRR, no murmur, no edema Gastrointestinal (Abdomen): normal bowel sounds, soft, nontender, no hepatosplenomegaly Neurologic: CN's II-XI intact bilaterally and moves all extremities Psychiatric: A+Ox3, euthymic affect Results & Data Vital Signs (Past 12 Hours) Vital Signs Temp Pulse Pulse Pulse Resp BP BP 04/09/25 08:07 36.7 C 74 20 130/78 04/09/25 08:00 36.5 C 71 16 04/09/25 07:19 72 04/09/25 03:44 36.3 C L 73 16 134/76 04/09/25 02:12 77 04/08/25 23:47 36.7 C 75 16 134/92 Pulse Ox O2 Del Method 04/09/25 08:07 95 Room Air 04/09/25 08:00 96 Room Air 04/09/25 07:19 04/09/25 03:44 95 Room Air 04/09/25 02:12 04/08/25 23:47 92 Room Air Code Status & VTE Plan VTE Prophylaxis Plan VTE Prophylaxis will be ordered: Yes
--- NOTE | 2025-04-09 08:15 | Pre Anesthesia Assessment ---
Date of Service April 09, 2025 Pre Sedation Assessment Vital Signs Temp Pulse Pulse Pulse Resp BP BP 04/09/25 08:09 112/67 04/09/25 08:07 36.7 C 74 20 130/78 04/09/25 08:00 36.5 C 71 16 04/09/25 07:19 72 04/09/25 03:44 36.3 C L 73 16 134/76 04/09/25 02:12 77 04/08/25 23:47 36.7 C 75 16 134/92 04/08/25 19:48 36.6 C 84 16 130/84 04/08/25 19:38 04/08/25 15:54 36.6 C 75 18 132/84 04/08/25 12:36 77 04/08/25 11:59 36.6 C 66 18 144/86 H Pulse Ox O2 Del Method 04/09/25 08:09 04/09/25 08:07 95 Room Air 04/09/25 08:00 96 Room Air 04/09/25 07:19 04/09/25 03:44 95 Room Air 04/09/25 02:12 04/08/25 23:47 92 Room Air 04/08/25 19:48 94 Room Air 04/08/25 19:38 Room Air 04/08/25 15:54 96 Room Air 04/08/25 12:36 04/08/25 11:59 98 Room Air Cardiovascular RRR, no murmur, no edema Respiratory normal respiratory effort, lungs clear to auscultation Pre-Sedation Airway Assessment Smoking Status: Never smoker Hx Sleep Apnea: No Short, Thick Neck: No Thyromental Distance: < 3.5 Finger Breadths Oral Cavity: + WNL Mallampati Class: II ASA: ASA3 NPO Status Date of Last Intake of Fluids: 04/09/25 Time of Last Intake of Fluids: 05:30 Date of Last Intake of Solid Food: 04/08/25 Time of Last Intake of Solid Foods: 21:00 Procedure Planning Contraindications for Sedation: none Current Medications Reviewed: Yes Notes The planned sedation has been discussed with the patient. Informed Consent was obtained. I have identified the patient, determined the appropriateness of sedation and have assessed the patient immediately prior to the procedure. All medicine(s) and interventions are by my order.
[2025-04-09 08:46] LABS: Anion Gap 16.0 (3-11); Blood Urea Nitrogen 152.0 mg/dl (6-23); Calcium 8.6 mg/dl (8.6-10.3); Carbon Dioxide 23.0 mmol/L (21-32); Chloride 99.0 mmol/L (98-107); Creatinine Clr Calc Pharmacy 12.5 ml/min; Glucose 102.0 mg/dl (70-99(Fasting)); Potassium 3.6 mmol/L (3.5-5.1); Sodium 138.0 mmol/L (136-145)
[2025-04-09] MEDS: LIDOCAINE 1% LOCAL 20 ML VIAL ONE (08:51)
[2025-04-09] MEDS: MIDAZOLAM HCL 1 MG/ML 2ML VIAL ONE (08:52)
--- NOTE | 2025-04-09 09:00 | Post Anesthesia Assessment ---
Date of Service April 09, 2025 Post Sedation Assessment Vital Signs Temp Pulse Pulse Pulse Resp BP BP 04/09/25 08:55 78 16 125/81 04/09/25 08:50 68 16 128/81 04/09/25 08:45 67 16 133/72 04/09/25 08:40 68 16 147/86 H 04/09/25 08:35 68 16 147/86 H 04/09/25 08:09 112/67 04/09/25 08:07 36.7 C 74 20 04/09/25 08:00 36.5 C 71 16 04/09/25 07:19 72 04/09/25 03:44 36.3 C L 73 16 134/76 04/09/25 02:12 77 04/08/25 23:47 36.7 C 75 16 134/92 04/08/25 19:48 36.6 C 84 16 130/84 04/08/25 19:38 04/08/25 15:54 36.6 C 75 18 04/08/25 12:36 77 04/08/25 11:59 36.6 C 66 18 BP Pulse Ox O2 Del Method O2 Flow Rate 04/09/25 08:55 98 Oxymask 4 04/09/25 08:50 93 Oxymask 4 04/09/25 08:45 96 Oxymask 4 04/09/25 08:40 95 Oxymask 4 04/09/25 08:35 95 Oxymask 4 04/09/25 08:09 04/09/25 08:07 130/78 95 Room Air 04/09/25 08:00 96 Room Air 04/09/25 07:19 04/09/25 03:44 95 Room Air 04/09/25 02:12 04/08/25 23:47 92 Room Air 04/08/25 19:48 94 Room Air 04/08/25 19:38 Room Air 04/08/25 15:54 132/84 96 Room Air 04/08/25 12:36 04/08/25 11:59 144/86 H 98 Room Air Recovery Score Activity: Moves 4 extremities Respiration: Deep Breath/Cough Circulation: +/-20% PreAnes Value Consciousness: Arouseable (by name) Oxygen Saturation: O2 needed for >90% Post Anesthesia Score: 8 Discharge Sedation Level of Care: Fast Track Phase II Post Sedation Plan On clinical assessment, the patient appears to have tolerated the sedation without complications. Patient is recovering as anticipated. Patient will continue to be monitored by nursing and may be discharged when sedation discharge criteria are met per below protocol. Upon Completions of procedure up to 15 minutes continue every 5 minute vital signs and the P.A.R. score; then discharge to a Phase I or Fast Track to Phase II per the following guidelines: * Discharge Patient to appropriate Phase II area if PAR is 8 or greater or return to pre- procedure baseline. The post - procedure orders will be as directed. * If PAR score is less than 8 or not return to pre-procedure baseline then patient will follow Phase I monitoring till PAR is reached for Phase II. The Phase I may be done in procedure room or may call to secure a Phase I area. * If naloxone or flumazenil are used for reversal, hold in Phase I for continued monitoring from when last reversal dose was given for a minimum of 60 minutes or longer pending the nurse and/or physician discretion of patient condition before discharge to Phase II. Please call the Sedation Physician to re-evaluate and complete post-note for discharge to Phase II area. Do NOT discharge from procedure sedation or Phase 1 until post- sedation evaluation note is complete by procedure /sedation MD Sedation Discharge Instructions to be given to the patient at discharge to home.
--- NOTE | 2025-04-09 09:00 | Operative Report ---
Post Operative Report Pre & Post Diagnosis Operation Date: 04/09/25 10:50 Pre-Op Diagnosis: End Stage Renal Disease. Post-Op Diagnosis: End Stage Renal Disease. I identified the patient and participated in the time-out.: Yes Procedure Operation Date: 04/09/25 10:50 Actual Procedures p Insertion of Perm Cath, Right Internal Jugular Approach, Ultrasound lo calization of the Right Internal Jugular Vein, Fluoroscopy for Positioning, Moderate Sedation [id number] Toby Lopez MD Surgeon Toby Lopez MD Turner Splitter Machine Operator none Estimated Blood Loss 5 Findings Consistent with Post-Op Diagnosis Specimens none Anesthesia Type RN Sedation Complications none Disposition Accompanied Patient To Recovery: No Disposition: Recovery Room Indications This patient 60-year-old female affected peritoneal dialysis catheter which was removed. She is now in need of an access for dialysis. Permacatheter recommended. I have discussed the risks options and benefits of the procedure with the patient. The patient understands the risks options and benefits and agrees to the procedure. Description of Procedure Patient was taken to the angio suite and placed in the supine position. The right side of the neck and chest wall were prepped and draped in a sterile manner. The patient was identified and a timeout performed. Local anesthesia was then administered to the appropriate areas of the neck and chest wall. Ultrasound was then used to locate the right internal jugular vein. The vein compressed easily, had no filing defects, and was patent. The vein was then punctured under direct ultrasound imaging. A guidewire was then passed centrally under fluoroscopic imaging. A stab wound was then made in the anterior chest wall and a 19 cm permcath was passed from the stab wound on the chest wall to the puncture site on the neck. The puncture site was then dilated till the 14Fr peel away sheath was inserted. The permcath was then inserted through the sheath to a central position in the distal superior vena cava. The peel away sheath was then removed. The catheter was then sutured in place using nylon sutures. The puncture was then closed using a 4-0 Vicryl subcuticular suture. Dermabond was used for a dressing on the puncture site. Both ports aspirated and flushed easily and were then packed with heparin. A sterile dressing was applied to the catheter. The patient left the operation room in satisfactory condition and tolerated the procedure well. All needle and sponge counts were correct at the end of the procedure. I attest to the content of the Intraoperative Record and any orders documented therein. Any exceptions are noted below.
--- NOTE | 2025-04-09 09:02 | Operative Report ---
Post Operative Report Pre & Post Diagnosis Operation Date: 04/09/25 10:50 Pre-Op Diagnosis: End Stage Renal Disease. Post-Op Diagnosis: End Stage Renal Disease. I identified the patient and participated in the time-out.: Yes Procedure Operation Date: 04/09/25 10:50 Actual Procedures p Insertion of Perm Cath, Right Internal Jugular Approach, Ultrasound local ization of the Right Internal Jugular Vein, Fluoroscopy for Positioning, Moderate Sedation 08:40 - 09:00 - Toby Lopez MD Surgeon Toby Lopez MD Salvage Winder none Estimated Blood Loss 5 Findings Consistent with Post-Op Diagnosis Specimens none Complications none Disposition Accompanied Patient To Recovery: No Disposition: Recovery Room Indications This is a 60-year-old female who had an infected peroneal dialysis catheter which was removed. She is now in need of dialysis. PermCath was recommended. I have discussed the risks options and benefits of the procedure with the patient. The patient understands the risks options and benefits and agrees to the procedure. Description of Procedure Patient was taken to the angio suite and placed in the supine position. The right side of the neck and chest wall were prepped and draped in a sterile manner. The patient was identified and a timeout performed. Local anesthesia was then administered to the appropriate areas of the neck and chest wall. Ultrasound was then used to locate the right internal jugular vein. The vein compressed easily, had no filing defects, and was patent. The vein was then punctured under direct ultrasound imaging. A guidewire was then passed centrally under fluoroscopic imaging. A stab wound was then made in the anterior chest wall and a 19 cm permcath was passed from the stab wound on the chest wall to the puncture site on the neck. The puncture site was then dilated till the 14Fr peel away sheath was inserted. The permcath was then inserted through the sheath to a central position in the distal superior vena cava. The peel away sheath was then removed. The catheter was then sutured in place using nylon sutures. The puncture was then closed using a 4-0 Vicryl subcuticular suture. Dermabond was used for a dressing on the puncture site. Both ports aspirated and flushed easily and were then packed with heparin. A sterile dressing was applied to the catheter. The patient left the operation room in satisfactory condition and tolerated the procedure well. All needle and sponge counts were correct at the end of the procedure. I attest to the content of the Intraoperative Record and any orders documented therein. Any exceptions are noted below.
[2025-04-09] MEDS ORDERED: SODIUM CHLORIDE 0.9% 1,000 ML IV PRN (10:40)
--- NOTE | 2025-04-09 10:46 | Nephrology Progress Note ---
Date of Service April 09, 2025 Assessment & Plan (1) ESRD (end stage renal disease): Plan: not yet on dialysis; unable to start PD as planned >> her BUN has climbed over 50 points since admission to 152 and creat up from 4.2 to 6.4 I spent 20 min 04/08 discussing different dialysis modalities; while she hopes to go back to PD at some point, she understands we need to start HD and need to do this w/ a tunnelled catheter she prefers to do home HD at [facility]; we will start training as early as 04/15 and take care of her on in center side until training can start; her son will be caregiver. She has already had a home visit for PD so apart from a few water over the horizon targeting supervisor questions which can be done by phone/in center we are ready >appreciate vascular help w/ TDC placement today >>AVOID PICC to preserve future AV fistula sites >> abtx can be given post HD >>cefepime 2 gm IV after each HD session, daptomycin 500 mg MW and 750 mg F after HD; we will draw her CBC/CMP > still need to find out about CK but she can get that at OP lab if need be >>FIRST HD today after TDC >> will do 2 hours gentle rx, trying to avoid dialysis dysequilibrium w/ such high BUN >next HD tomorrow as IP or OP >ordered hepatitis serologies STAT >pls have case mgt arrange OP in - center HD at [facility]; will pivot to training for HHD planned tentatively for 04/15 and will train MWF >she understands she still needs an AVF irregardless of whether goes back to PD but will do that after HHD training >phos 6.8 today > continue calcium acetate binder when taking po and start SUBSURFACE AUGMENTEE ELINT OPERATOR (2) Peritonitis associated with peritoneal dialysis: Plan: complex/polymicrobial PD peritonitis >> growing as of 04/04 moderate Enterococcus species and Pseudomonas aeruginosa from serosanguinous fluid leakage around PD catheter exit site on 04/01 (in [facility] EHR) pt noted 5 days post op to have no cap on PD catheter of unknown duration; s/p transfer set change x 2 and 1 week of oral abtx SPLITTER TENDER S/p PD cath removal 04/04. On Abx currently--Dapto and Cefepime to be dosed through 04/19/25 (2 wks from PD cath removal) She has no florid Symptoms currently. No surgical intervention needed. (3) Abnormal abdominal CT scan: Plan: read as possible abscess but wondering if this represents site of recent hernia repair - ?OP gen surg f/u? 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 voids multiple times daily. Review of Systems 2 Review of Systems: All systems reviewed & are unremarkable except as noted in Subjective Physical Exam 2 Constitutional: well developed, well nourished, + morbidly obese and cooperative; no acute distress Eyes: EOM intact bilaterally ENMT: Ears: no external ear abnormality Nose: no external nose abnormality Mouth: + dry oral mucous membranes Neck: no nuchal rigidity Respiratory: normal respiratory effort Auscultation: + diminished lung sounds Cardiovascular: RRR, no murmur, no edema Gastrointestinal (Abdomen): Inspection/Auscultation: normal bowel sounds; no abdominal surgical drain present Percussion/Palpation: abdomen soft; abdomen nontender Musculoskeletal: Extremities: strength 5/5 throughout Skin: no rashes, warm and dry Psychiatric: A+Ox3, euthymic affect Results & Data Vital Signs (Past 12 Hours) Vital Signs Temp Pulse Pulse Pulse Resp BP BP 04/09/25 09:00 68 18 122/82 04/09/25 08:55 78 16 125/81 04/09/25 08:50 68 16 128/81 04/09/25 08:45 67 16 133/72 04/09/25 08:40 68 16 147/86 H 04/09/25 08:35 68 16 147/86 H 04/09/25 08:09 112/67 04/09/25 08:07 36.7 C 74 20 04/09/25 08:00 36.5 C 71 16 04/09/25 07:19 72 04/09/25 03:44 36.3 C L 73 16 134/76 04/09/25 02:12 77 04/08/25 23:47 36.7 C 75 16 134/92 BP Pulse Ox O2 Del Method O2 Flow Rate 04/09/25 09:00 98 Room Air 04/09/25 08:55 98 Oxymask 4 04/09/25 08:50 93 Oxymask 4 04/09/25 08:45 96 Oxymask 4 04/09/25 08:40 95 Oxymask 4 04/09/25 08:35 95 Oxymask 4 04/09/25 08:09 04/09/25 08:07 130/78 95 Room Air 04/09/25 08:00 96 Room Air 04/09/25 07:19 04/09/25 03:44 95 Room Air 04/09/25 02:12 04/08/25 23:47 92 Room Air Laboratory Results 04/09/25 07:56 04/09/25 07:56
--- NOTE | 2025-04-09 14:23 | Hospitalist Progress Note ---
Date of Service April 09, 2025 Assessment & Plan (1) Peritoneal dialysis catheter infection: (2) Peritonitis associated with peritoneal dialysis: Plan: Patient is a 60y/o F with PMHx significant for ESRD not on dialysis yet, secondary hyperparathyroidism of renal origin, gout of multiple sites due to renal impairment, morbid obesity, HTN, HLD, thyroid nodule, gout, GERD, giant cell arteritis, GERD, anemia of chronic kidney disease, low back pain with left- sided sciatica, osteopenia, third nerve palsy of right eye, ELAINE and depression who presented to the ED on 04/03/25 with concern for peritoneal infection 2/2 an infected peritoneal dialysis catheter. 03/20/25: S/p laparoscopic peritoneal dialysis catheter insertion, open umbilical hernia repair performed by Dr. Ramiro Cooney at [facility]. 03/25/25: Seen at [facility] ED with concerns regarding missing cap from her PD catheter, unclear how long this was displaced. General surgery did not feel the pt required any intervention or intraperitoneal ABX at that time. Dr. Gerda Moreland (nephro) made aware and started pt on po clindamycin and nystatin. 04/01/25: Pt noted to have purulent drainage at PD catheter exit site which was cultured. PD catheter exit site culture grew few Pseudomonas aeruginosa, moderate Enterococcus species and moderate Staphylococcus hemolyticus. -Pseudomonas with susceptibility to cefepime, ciprofloxacin, levofloxacin and Zosyn. -Enterococcus with susceptibility to ampicillin and vancomycin. -Staphylococcus haemolyticus with susceptibility to Bactrim and vancomycin. 04/02/25: Outpatient gen surg visit with Dr. Ramiro Cooney. [place] pt doing well. 04/03/25: Pt referred to ED for admission by Dr. Gerda Moreland to receive IV ABX given results of polymicrobial peritoneal fluid culture and to check CTAP. CTAP with no ascites or intraperitoneal fluid collection however did note a 3 x 1.5 cm suspected soft tissue abscess in the anterior abdominal wall. Previous provider discussed finding of possible soft tissue abscess seen on CTAP with Dr. Almendarez via TT on 04/06. No urgent indication for I&D, could be postop seroma/fluid collection rather than abscess. Initially was started on IV daptomycin and IV aztreonam. IV aztreonam stopped 04/04. Switched to IV ceftazidime and IP daptomycin. -After laying flat x 6 hrs PD catheter site leaked fluid and soaked dressings. -Deemed nonfunctioning PD catheter. -Was then transitioned to IV daptomycin instead. 04/05/25: s/p PD catheter removal performed by Dr. Eric Almendarez. Topical gentamicin to PD catheter exit site. PD catheter tip sent for culture -> culture with staphylococcus epidermidis, Gram stain with no organisms seen. Previous provider discussed case with Dr. Moreno via TT on 04/06. -Recommended transitioning IV ceftazidime to IV cefepime, continue IV daptomycin. 04/08 ID finals recs: Cefepime and Daptomycin IV for 2 weeks from PD catheter removal on 04/05/2024. End date: 04/19/2025. Discussed IV antibiotics and coordination with nephrology Dr. Cooney. unable to place PICC line to preserve vein access for future fistula. Final antibiotic regimen: cefepime 2 g IV after each HD session; daptomycin 500 mg on Tuesday, Tuesday, and 750 mg on Tuesday after HD Antibiotics will need to be delivered to patient's home and she will need to take to dialysis center with her. CM updated Patient remains afebrile and hemodynamically stable. Blood cx NGTD. Continue renal meds, torsemide. No uremic symptoms despite uptrending BUN 132 -> 144 -> 152, Cr 5.14 -> 5.6 -> 6.4 K+ 3.6, HCO3 23 s/p right TDC today by Dr. Lopez Plan for first HD today inpatient -- will eventually transition to outpatient home hemodialysis training (3) Abnormal computed tomography of abdomen and pelvis: Plan: CTAP incidentally noting a right renal mass, could represent an angiomyolipoma. Also noted bilateral hypodense renal lesions which could represent proteinaceous or hemorrhagic cysts but are indeterminate in nature. Renal protocol abdominal CT or MRI with and without contrast could be obtained for further evaluation >> OP follow-up needed. (4) Pleural effusion on left: Plan: Small left pleural effusion noted on CTAP with noted subsegmental atelectasis in both lower lobes. Patient currently with no cardiopulmonary complaints, saturating well on RA. ISP ordered given atelectasis. Continue to monitor respiratory status. (5) Giant cell arteritis: Plan: Following with [facility] rheumatology, Dr. Douglas Reyna. S/p right artery biopsy on 02/07/2025. Biopsy result c/w lymphocytic mural inflammation suggestive of early/incipient temporal arteritis. Hepatitis B and QuantiFERON negative. On GIACTA 26wk prolonged prednisone taper course as well as Actemra. -Decrease to 30mg on 04/08/2025 x 1wk, followed by 25mg x 1wk and then continued taper course (outlined in Epic chart). If patient admitted for prolonged time, [facility] On PCP prophylaxis with atovaquone. Other chronic medical conditions: HLD - Holding statin while on daptomycin. GERD - Continue PPI. Gout - Continue allopurinol ELAINE/Depression - Continue citalopram. DVT Prophylaxis: SCDs/TEDs only for now Code Status: FULL CODE PCP: Maida Ocampo PA-C Disposition: anticipate d/c home with antibiotics to be given at dialysis Patient seen in collaboration with Dr. Harris. I spent a total of 60 minutes coordinating, documenting, and providing care for this patient excluding time spent in the performance of separately billed services. This included personally reviewing all current laboratories and imaging studies, medication reconciliation, outpatient chart review, and discussion with specialists. Admission and Anticipated Discharge Date Admission Date: April 03, 2025 Supervising Physician Co-Signing Physician Notes Patient seen and examined Got HD catheter placed today ID recs noted Making arrangements with Nephro and CM about HD arrangements and IV antibiotics. Agree with findings and plans as detailed by Denia HARPER Subjective follow-up for peritonitis. Patient seen and examined. Resting in bed. Underwent TDC placement this a.m. Will have first hemodialysis treatment today. Patient offers no complaints. Reports she is feeling well. Denies chest pain and shortness of breath. No abdominal pain or nausea. Physical Exam Constitutional: WD/WN, vitals as above no acute distress Respiratory: normal respiratory effort; no respiratory distress Auscultation: + diminished lung sounds Cardiovascular: Rate/Rhythm: regular rate and regular rhythm Chest (Breasts): Chest: + vascular access device or port (TDC in place to right chest) Gastrointestinal (Abdomen): Percussion/Palpation: abdomen soft; abdomen nontender Skin: no rashes, warm and dry Neurologic: no focal motor deficits Psychiatric: A+Ox3, euthymic affect Results & Data Results & Data Vital Signs (Past 12 Hours) Vital Signs Temp Pulse Pulse Pulse Resp BP BP 04/09/25 13:45 63 128/84 04/09/25 13:30 62 141/56 H 04/09/25 13:00 64 133/87 04/09/25 12:30 63 129/91 04/09/25 12:00 122/94 04/09/25 11:43 62 128/84 04/09/25 11:36 36.6 C 65 04/09/25 11:19 36.3 C L 74 20 04/09/25 11:00 36.4 C L 69 18 128/80 04/09/25 10:30 36.3 C L 72 18 123/79 04/09/25 10:15 36.4 C L 71 18 124/80 04/09/25 10:00 36.4 C L 71 18 127/84 04/09/25 09:45 36.4 C L 70 18 130/78 04/09/25 09:30 36.4 C L 71 18 125/81 04/09/25 09:00 68 18 122/82 04/09/25 08:55 78 16 125/81 04/09/25 08:50 68 16 128/81 04/09/25 08:45 67 16 133/72 04/09/25 08:40 68 16 147/86 H 04/09/25 08:35 68 16 147/86 H 04/09/25 08:09 112/67 04/09/25 08:07 36.7 C 74 20 04/09/25 08:00 36.5 C 71 16 04/09/25 07:19 72 04/09/25 03:44 36.3 C L 73 16 134/76 04/09/25 02:12 77 BP Pulse Ox O2 Del Method O2 Flow Rate 04/09/25 13:45 04/09/25 13:30 04/09/25 13:00 04/09/25 12:30 04/09/25 12:00 04/09/25 11:43 04/09/25 11:36 04/09/25 11:19 148/89 H 97 Room Air 04/09/25 11:00 96 Room Air 04/09/25 10:30 95 Room Air 04/09/25 10:15 95 Room Air 04/09/25 10:00 96 Room Air 04/09/25 09:45 97 Room Air 04/09/25 09:30 96 Room Air 04/09/25 09:00 98 Room Air 04/09/25 08:55 98 Oxymask 4 04/09/25 08:50 93 Oxymask 4 04/09/25 08:45 96 Oxymask 4 04/09/25 08:40 95 Oxymask 4 04/09/25 08:35 95 Oxymask 4 04/09/25 08:09 04/09/25 08:07 130/78 95 Room Air 04/09/25 08:00 96 Room Air 04/09/25 07:19 04/09/25 03:44 95 Room Air 04/09/25 02:12 Laboratory Results Short CBC 04/09/25 Range/Units 07:56 WBC 14.97 H (4.8-10.8) K/ul Hgb 10.8 L (12.0-16.0) g/dl Hct 33.3 L (37.0-47.0) % Plt Count 198 (130-400) K/uL BMP 04/09/25 07:56 Sodium 138 Potassium 3.6 Chloride 99 Carbon Dioxide 23 BUN 152 H Creatinine 6.43 H* D Glucose 102 H Calcium 8.6
[2025-04-09 15:33] LABS: Hep B Core Total Antibody Negative (Negative)
[2025-04-09 15:37] LABS: Hep B Surface Ag with confirm Negative (Negative)
[2025-04-10] MEDS ORDERED: SODIUM CHLORIDE 0.9% 1,000 ML IV PRN (07:00)
[2025-04-10 08:36] LABS: Hematocrit (blood only) 30.9 % (37.0-47.0); Hemoglobin 10.1 g/dl (12.0-16.0); Immature Granulocytes # (auto) 0.06 K/uL (0.01-0.20); Immature Granulocytes % (auto) 0.4 %; Mean Corpuscular Hemoglobin 31.7 pg (25.0-34.0); Mean Corpuscular Volume 96.9 fL (80.0-100.0); Platelet Count 160 K/uL (130-400); RDW Standard Deviation 49.1 fL (36.4-46.3); Red Blood Count 3.19 M/uL (4.20-5.40); White Blood Count 14.26 K/ul (4.8-10.8)
[2025-04-10 08:52] LABS: Anion Gap 14.0 (3-11); Blood Urea Nitrogen 117.0 mg/dl (6-23); Calcium 8.5 mg/dl (8.6-10.3); Carbon Dioxide 25.0 mmol/L (21-32); Chloride 100.0 mmol/L (98-107); Creatine Kinase 88.0 U/L (26-192); Creatinine Clr Calc Pharmacy 14.5 ml/min; Glucose 94.0 mg/dl (70-99(Fasting)); Potassium 3.6 mmol/L (3.5-5.1); Sodium 139.0 mmol/L (136-145)
--- NOTE | 2025-04-10 13:53 | Dialysis Progress Note ---
Date of Service April 10, 2025 Assessment & Plan (1) Peritoneal dialysis catheter infection: Plan: note this infection IS NOT related to dialysis; it pre dates dialysis or any flushing of catheter >> infection emerged on cultures taken after no cap on pd catheter noted 5 days after high risk PD cath insertion & abd hernia repair. unclear when cap was lost or if it ever was in place to begin with. Timeline of recent events: 03/20 > complex strangulated hernia repair and PD catheter placement at [facility], deemed high risk b/c of hernia repair, immunosuppression, obesity 03/23 (approx) > pt updates PD nurse that catheter is hanging out of dressing (unexpected) >> advised to cover w/ sterile gauze and anchor gauze 03/25 > noted at PD clinic no cap on PD catheter of unknown duration >> first transfer set change; no PD cath flush; no abdominal or constitutional symptoms >referred to [facility] ED for surgical eval >> no intervention indicated, including no abtx >started by me empirically on clindamycin and nystatin, 10 day course planned 04/01 > noted at PD clinic to have drainage on dressing, copious serosanguinous drainage around PD catheter, exit site looks ok; no abdominal or constitutional symptoms > culture of drainage around exit site obtained, transfer set changed once again, after which flush 10 mL of saline 04/02> post op visit w/ general surgery >> satisfactory 04/03> exit site drainage culture from 04/01 positive for few GNR and for Enterococcal species; pt referred to [facility] ED 04/04 > ES drainage culture growing Enterococcal species and Pseudomonas aeruginosa; pt again with copious drainage around PD catheter despite/after infusing 500 mL abtx/dextrose solution and laying flat x 6hrs 04/05 > PD catheter removed 04/09 first HD treatment after TDC placement same day ------- complex/polymicrobial PD peritonitis >> growing as of 04/04 moderate Enterococcus species and Pseudomonas aeruginosa from serosanguinous fluid leakage around PD catheter exit site on 04/01 (cx in [facility] EHR) pt noted 5 days post op to have no cap on PD catheter of unknown duration; s/p transfer set change x 2 and 1 week of oral abtx WEEKEND CAREGIVER S/p PD cath removal 04/04. On Abx currently--Dapto and Cefepime to be dosed as below through 04/19/25 (2 wks from PD cath removal) (2) ESRD (end stage renal disease): Plan: now on dialysis; unable to start PD as planned >> her BUN has climbed over 50 points since admission to [facility] and creat up from 4.2 to 6.4 before starting HD I spent 20 min 04/08 discussing different dialysis modalities; while she hopes to go back to PD at some point, she understands we need to start HD and need to do this w/ a tunnelled catheter she prefers to do home HD at [facility]; we will start training 04/15 and take care of her on in center side tomorrow until training can start; her son will be caregiver. She has already had a home visit for PD so apart from a few water tumblers supervisor questions which can be done by phone/in center we are ready appreciate vascular help w/ TDC placement 04/09 AVOID PICC to preserve future AV fistula sites >> abtx can be given post HD >>cefepime 2 gm IV after each HD session, daptomycin 500 mg MW and 750 mg F after HD; she should get OP CBC/CMP > still need to find out about CK but she can get that at OP lab if need be >>FIRST HD 04/09 after TDC >> another 3 hrs today; tolerating txs well >next HD tomorrow as IP or OP >resulted hepatitis serologies >pt to do in - center HD at [facility] tomorrow if abtx arranged; will pivot to training for HHD planned tentatively for 04/15 and will train MWF >she understands she still needs an AVF irregardless of whether goes back to PD but will do that after HHD training > continue calcium acetate binder when taking po and start INDUSTRIAL HYGENIST (3) Abnormal abdominal CT scan: Plan: read as possible abscess but wondering if this represents site of recent hernia repair - ?OP gen surg f/u? 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 and BL renal masses indeterminate masses >> OP follow up (5) S/P hernia repair: Plan: she had 03/20/25 strangulated umbilical hernia repair at [facility] (6) Temporal giant cell arteritis: Plan: on high dose steroid taper and PJP prophylaxis > continue prednisone taper and atovaquone Admission and Anticipated Discharge Date Admission Date: April 03, 2025 Subjective seen and evaluated on HD; tolerating second tx well Review of Systems 2 Review of Systems: All systems reviewed & are unremarkable except as noted in Subjective Physical Exam 2 Constitutional: well developed, well nourished, + morbidly obese and cooperative; no acute distress Eyes: EOM intact bilaterally ENMT: Ears: no external ear abnormality Nose: no external nose abnormality Mouth: + dry oral mucous membranes Neck: no nuchal rigidity Respiratory: normal respiratory effort Auscultation: + diminished lung sounds Cardiovascular: RRR, no murmur, no edema Gastrointestinal (Abdomen): Inspection/Auscultation: normal bowel sounds; no abdominal surgical drain present Percussion/Palpation: abdomen soft; abdomen nontender Musculoskeletal: Extremities: strength 5/5 throughout Skin: no rashes, warm and dry Psychiatric: A+Ox3, euthymic affect Results & Data Vital Signs (Past 12 Hours) Vital Signs Temp Pulse Pulse Pulse Resp BP BP 04/10/25 12:30 74 117/64 04/10/25 12:00 72 111/70 04/10/25 11:30 66 107/70 04/10/25 11:00 65 106/73 04/10/25 10:30 66 95/55 L 04/10/25 10:01 65 108/72 04/10/25 09:54 36.5 C 67 04/10/25 09:52 04/10/25 07:36 36.3 C L 69 20 143/80 H 04/10/25 07:27 70 04/10/25 04:05 36.4 C L 69 20 148/93 H 04/10/25 02:00 75 Pulse Ox O2 Del Method 04/10/25 12:30 04/10/25 12:00 04/10/25 11:30 04/10/25 11:00 04/10/25 10:30 04/10/25 10:01 04/10/25 09:54 04/10/25 09:52 Room Air 04/10/25 07:36 96 Room Air 04/10/25 07:27 04/10/25 04:05 92 Room Air 04/10/25 02:00 Laboratory Results 04/10/25 08:20 04/10/25 07:19
[2025-04-10] MEDS: HEPARIN SOD (PORCINE) 5,000 UNITS/ML VIAL ONE (14:17)
--- NOTE | 2025-04-10 15:06 | Hospitalist Progress Note ---
<Statement entered by Tito Lunsford DO - 04/10/25 16:10> Still working on getting IV abx set up for discharge. Date of Service April 10, 2025 Assessment & Plan (1) Peritoneal dialysis catheter infection: (2) Peritonitis associated with peritoneal dialysis: Plan: Patient is a 60y/o F with PMHx significant for ESRD not on dialysis yet, secondary hyperparathyroidism of renal origin, gout of multiple sites due to renal impairment, morbid obesity, HTN, HLD, thyroid nodule, gout, GERD, giant cell arteritis, GERD, anemia of chronic kidney disease, low back pain with left- sided sciatica, osteopenia, third nerve palsy of right eye, ELAINE and depression who presented to the ED on 04/03/25 with concern for peritoneal infection 2/2 an infected peritoneal dialysis catheter. 03/20/25: S/p laparoscopic peritoneal dialysis catheter insertion, open umbilical hernia repair performed by Dr. Ramiro Cooney at [facility]. 03/25/25: Seen at [facility] ED with concerns regarding missing cap from her PD catheter, unclear how long this was displaced. General surgery did not feel the pt required any intervention or intraperitoneal ABX at that time. Dr. Gerda Moreland (nephro) made aware and started pt on po clindamycin and nystatin. 04/01/25: Pt noted to have purulent drainage at PD catheter exit site which was cultured. PD catheter exit site culture grew few Pseudomonas aeruginosa, moderate Enterococcus species and moderate Staphylococcus hemolyticus. -Pseudomonas with susceptibility to cefepime, ciprofloxacin, levofloxacin and Zosyn. -Enterococcus with susceptibility to ampicillin and vancomycin. -Staphylococcus haemolyticus with susceptibility to Bactrim and vancomycin. 04/02/25: Outpatient gen surg visit with Dr. Ramiro Cooney. Somers pt doing well. 04/03/25: Pt referred to ED for admission by Dr. Gerda Moreland to receive IV ABX given results of polymicrobial peritoneal fluid culture and to check CTAP. CTAP with no ascites or intraperitoneal fluid collection however did note a 3 x 1.5 cm suspected soft tissue abscess in the anterior abdominal wall. Previous provider discussed finding of possible soft tissue abscess seen on CTAP with Dr. Almendarez via TT on 04/06. No urgent indication for I&D, could be postop seroma/fluid collection rather than abscess. Initially was started on IV daptomycin and IV aztreonam. IV aztreonam stopped 04/04. Switched to IV ceftazidime and IP daptomycin. -After laying flat x 6 hrs PD catheter site leaked fluid and soaked dressings. -Deemed nonfunctioning PD catheter. -Was then transitioned to IV daptomycin instead. 04/05/25: s/p PD catheter removal performed by Dr. Eric Almendarez. Topical gentamicin to PD catheter exit site. PD catheter tip sent for culture -> culture with staphylococcus epidermidis, Gram stain with no organisms seen. Previous provider discussed case with Dr. Moreno via TT on 04/06. -Recommended transitioning IV ceftazidime to IV cefepime, continue IV daptomycin. 04/08 ID finals recs: Cefepime and Daptomycin IV for 2 weeks from PD catheter removal on 04/05/2024. End date: 04/19/2025. 04/09: Discussed IV antibiotics and coordination with nephrology Dr. Cooney. Unable to place PICC line to preserve vein access for future fistula. Final antibiotic regimen: cefepime 2 g IV after each HD session; daptomycin 500 mg on Tuesday, Tuesday, and 750 mg on Tuesday after HD Antibiotics will need to be delivered to patient's home and she will need to take to dialysis center with her. CM continuing to work on coordination of antibiotics Patient remains afebrile and hemodynamically stable. Blood cx NGTD. Continue renal meds, torsemide. No uremic symptoms despite uptrending BUN/creat - Now improving with initiation of dialysis BUN 132 -> 144 -> 152 -> 117, Cr 5.14 -> 5.6 -> 6.4 -> 5.55 K+ 3.6, HCO3 25 s/p right TDC on 04/[address] Lopez First HD on 04/09, second session today, tolerating well. No plans for HD tomorrow per discussion with Dr. Moreland. (3) Abnormal computed tomography of abdomen and pelvis: Plan: CTAP incidentally noting a right renal mass, could represent an angiomyolipoma. Also noted bilateral hypodense renal lesions which could represent proteinaceous or hemorrhagic cysts but are indeterminate in nature. Renal protocol abdominal CT or MRI with and without contrast could be obtained for further evaluation >> OP follow-up needed. (4) Pleural effusion on left: Plan: Small left pleural effusion noted on CTAP with noted subsegmental atelectasis in both lower lobes. Patient currently with no cardiopulmonary complaints, saturating well on RA. ISP ordered given atelectasis. Continue to monitor respiratory status. (5) Giant cell arteritis: Plan: Following with [facility] rheumatology, Dr. Douglas Reyna. S/p right artery biopsy on 02/07/2025. Biopsy result c/w lymphocytic mural inflammation suggestive of early/incipient temporal arteritis. Hepatitis B and QuantiFERON negative. On GIACTA 26wk prolonged prednisone taper course as well as Actemra. -Decrease to 30mg on 04/08/2025 x 1wk, followed by 25mg x 1wk and then continued taper course (outlined in Epic chart). If patient admitted for prolonged time, will need to adjust prednisone dosing in [employer] system. On PCP prophylaxis with atovaquone. Other chronic medical conditions: HLD - Holding statin while on daptomycin. GERD - Continue PPI. Gout - Continue allopurinol ELAINE/Depression - Continue citalopram. DVT Prophylaxis: SCDs/TEDs only for now Code Status: FULL CODE PCP: Maida Ocampo PA-C Disposition: anticipate d/c home with antibiotics to be given at dialysis Patient seen in collaboration with Dr. Lunsford. I spent a total of 35 minutes coordinating, documenting, and providing care for this patient excluding time spent in the performance of separately billed services. This included personally reviewing all current laboratories and imaging studies, medication reconciliation, outpatient chart review, and discussion with specialists. Admission and Anticipated Discharge Date Admission Date: April 03, 2025 Subjective Follow-up for peritonitis. Patient seen and examined. Underwent second hemodialysis treatment today. Reports she continues to feel well, eager for discharge. Physical Exam Constitutional: no acute distress Respiratory: normal respiratory effort, lungs clear to auscultation Cardiovascular: Rate/Rhythm: regular rate and regular rhythm Vessels: normal peripheral pulses Extremities: no edema Gastrointestinal (Abdomen): Percussion/Palpation: abdomen soft; abdomen nontender Skin: no rashes, warm and dry Neurologic: no focal motor deficits Psychiatric: A+Ox3, euthymic affect Results & Data Results & Data Vital Signs (Past 12 Hours) Vital Signs Temp Pulse Pulse Pulse Resp BP BP 04/10/25 14:55 72 04/10/25 13:53 36.4 C L 04/10/25 13:33 70 114/91 04/10/25 13:30 73 124/52 L 04/10/25 13:00 73 125/54 L 04/10/25 12:30 74 117/64 04/10/25 12:00 72 111/70 04/10/25 11:30 66 107/70 04/10/25 11:00 65 106/73 04/10/25 10:30 66 95/55 L 04/10/25 10:01 65 108/72 04/10/25 09:54 36.5 C 67 04/10/25 09:52 04/10/25 07:36 36.3 C L 69 20 143/80 H 04/10/25 07:27 70 04/10/25 04:05 36.4 C L 69 20 148/93 H BP Pulse Ox O2 Del Method 04/10/25 14:55 04/10/25 13:53 112/61 04/10/25 13:33 04/10/25 13:30 04/10/25 13:00 04/10/25 12:30 04/10/25 12:00 04/10/25 11:30 04/10/25 11:00 04/10/25 10:30 04/10/25 10:01 04/10/25 09:54 04/10/25 09:52 Room Air 04/10/25 07:36 96 Room Air 04/10/25 07:27 04/10/25 04:05 92 Room Air Laboratory Results Short CBC 04/10/25 Range/Units 08:20 WBC 14.26 H (4.8-10.8) K/ul Hgb 10.1 L (12.0-16.0) g/dl Hct 30.9 L (37.0-47.0) % Plt Count 160 (130-400) K/uL BMP 04/10/25 07:19 Sodium 139 Potassium 3.6 Chloride 100 Carbon Dioxide 25 BUN 117 H D Creatinine 5.55 H* D Glucose 94 Calcium 8.5 L Cardiac Enzymes 04/10/25 Range/Units 07:19 Total Creatine Kinase 88 (26-192) U/L
[2025-04-10] MEDS: CEFEPIME 2000MG 2,000 MG/20 ML SYR IV SCH (16:39)
[2025-04-10] MEDS: DAPTOmycin 250 MG in SYRINGE 0 ML IV SCH (16:39)
[2025-04-11 09:13] LABS: Hematocrit (blood only) 32.5 % (37.0-47.0); Hemoglobin 10.5 g/dl (12.0-16.0); Mean Corpuscular Hemoglobin 31.7 pg (25.0-34.0); Mean Corpuscular Volume 98.2 fL (80.0-100.0); Platelet Count 151 K/uL (130-400); RDW Standard Deviation 49.3 fL (36.4-46.3); Red Blood Count 3.31 M/uL (4.20-5.40); White Blood Count 12.12 K/ul (4.8-10.8)
[2025-04-11 09:39] LABS: Anion Gap 12.0 (3-11); Blood Urea Nitrogen 61.0 mg/dl (6-23); Calcium 8.6 mg/dl (8.6-10.3); Carbon Dioxide 27.0 mmol/L (21-32); Chloride 101.0 mmol/L (98-107); Creatinine Clr Calc Pharmacy 18.4 ml/min; Glucose 92.0 mg/dl (70-99(Fasting)); Potassium 3.7 mmol/L (3.5-5.1); Sodium 140.0 mmol/L (136-145)
--- NOTE | 2025-04-11 12:11 | Nephrology Progress Note ---
Date of Service April 11, 2025 Assessment & Plan (1) Peritoneal dialysis catheter infection: Plan: she started dialysis on 04/09 on HD; had PD cath placed 03/20 and found 5 days post op to have no cap on PD catheter. this infection IS NOT related to dialysis; it pre dates dialysis or any flushing of catheter >> infection emerged on cultures taken after no cap on pd catheter noted 5 days after high risk PD cath insertion & abd hernia repair. unclear when cap was lost or if it ever was in place to begin with. Timeline of recent events: 03/20 > complex strangulated hernia repair and PD catheter placement at [facility], deemed high risk b/c of hernia repair, immunosuppression, obesity 03/23 (approx) > pt updates PD nurse that catheter is hanging out of dressing (unexpected) >> advised to cover w/ sterile gauze and anchor gauze 03/25 > noted at PD clinic no cap on PD catheter of unknown duration >> first transfer set change; no PD cath flush; no abdominal or constitutional symptoms >referred to [facility] ED for surgical eval >> no intervention indicated, including no abtx >started by me empirically on clindamycin and nystatin, 10 day course planned 04/01 > noted at PD clinic to have drainage on dressing, copious serosanguinous drainage around PD catheter, exit site looks ok; no abdominal or constitutional symptoms > culture of drainage around exit site obtained, transfer set changed once again, after which flush 10 mL of saline 04/02> post op visit w/ general surgery >> satisfactory 04/03> exit site drainage culture from 04/01 positive for few GNR and for Enterococcal species; pt referred to [facility] ED 04/04 > ES drainage culture growing Enterococcal species and Pseudomonas aeruginosa; pt again with copious drainage around PD catheter despite/after infusing 500 mL abtx/dextrose solution and laying flat x 6hrs 04/05 > PD catheter removed 04/09 first HD treatment after TDC placement same day ------- complex/polymicrobial PD peritonitis >> growing as of 04/04 moderate Enterococcus species and Pseudomonas aeruginosa from serosanguinous fluid leakage around PD catheter exit site on 04/01 (cx in [facility] EHR) pt noted 5 days post op to have no cap on PD catheter of unknown duration; s/p transfer set change x 2 and 1 week of oral abtx LEAD DATABASE DEVELOPER S/p PD cath removal 04/04. 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 and BL renal masses indeterminate masses >> OP follow up (4) S/P hernia repair: Plan: she had 03/20/25 strangulated umbilical hernia repair at [facility] (5) Temporal giant cell arteritis: Plan: on high dose steroid taper and PJP prophylaxis > continue prednisone and atovaquone Admission and Anticipated Discharge Date Admission Date: April 03, 2025 Subjective no inteval events clinically; no sob, no edema, no new/worrisome voiding c/o, no diarrhea, no abd pain; tolerated HD yesterday no issues Physical Exam 2 Constitutional: well developed, well nourished, + morbidly obese and cooperative; no acute distress Eyes: EOM intact bilaterally ENMT: Ears: no external ear abnormality Nose: no external nose abnormality Mouth: + dry oral mucous membranes Neck: no nuchal rigidity Respiratory: normal respiratory effort Auscultation: + diminished lung sounds Cardiovascular: RRR, no murmur, no edema Gastrointestinal (Abdomen): Inspection/Auscultation: normal bowel sounds; no abdominal surgical drain present Percussion/Palpation: abdomen soft; abdomen nontender Musculoskeletal: Extremities: strength 5/5 throughout Skin: no rashes, warm and dry Psychiatric: A+Ox3, euthymic affect Results & Data Vital Signs (Past 12 Hours) Vital Signs Temp Pulse Pulse Resp BP Pulse Ox O2 Del Method 04/11/25 07:54 36.6 C 68 16 132/81 95 Room Air 04/11/25 07:11 66 04/11/25 04:11 36.3 C L 70 20 131/86 95 Room Air 04/11/25 00:39 36.4 C L 73 20 124/71 95 Room Air Laboratory Results 04/11/25 08:37 04/11/25 08:37
[2025-04-11 12:32] VITALS: BP 120/83; RESP 19; TEMP 97.5; O2SAT 92
[2025-04-11 14:19] VITALS: PULSE 80
--- NOTE | 2025-04-11 16:27 | Discharge Summary ---
<Statement entered by Tito Lunsford DO - 04/12/25 13:19> seen and examined. For DC today now that IV abx have been set up I spent a total of 18 minutes coordinating, documenting, and providing care for this patient excluding time spent in the performance of separately billed services. This included personally reviewing all current laboratories and imaging studies, medical reconciliation, outpatient chart review and discussion with specialists Discharge Summary Date of Service April 11, 2025 Principal Dx & Hospital Course #1 = Principal Diagnosis (1) Peritoneal dialysis catheter infection: (2) Abnormal computed tomography of abdomen and pelvis: (3) Pleural effusion on left: (4) Giant cell arteritis: (5) ESRD (end stage renal disease) on dialysis: Plan 60 year old female with PMH significant for ESRD not on dialysis yet, secondary hyperparathyroidism of renal origin, gout of multiple sites due to renal impairment, morbid obesity, HTN, HLD, thyroid nodule, gout, GERD, giant cell ar teritis, GERD, anemia of chronic kidney disease, low back pain with left-sided sciatica, osteopenia, third nerve palsy of right eye, ELAINE and depression who presented to the ED on 04/03/25 with an infected peritoneal dialysis catheter. Timeline of recent events: 03/20 > complex strangulated hernia repair and PD catheter placement at [facility], deemed high risk b/c of hernia repair, immunosuppression, obesity 03/23 (approx) > pt updates PD nurse that catheter is hanging out of dressing (unexpected) >> advised to cover w/ sterile gauze and anchor gauze 03/25 > noted at PD clinic no cap on PD catheter of unknown duration >> first transfer set change; no PD cath flush; no abdominal or constitutional symptoms >referred to [facility] ED for surgical eval >> no intervention indicated, including no abtx >started by Dr. Gerda Moreland empirically on clindamycin and nystatin, 10 day course planned 04/01 > noted at PD clinic to have drainage on dressing, copious serosanguinous drainage around PD catheter, exit site looks ok; no abdominal or constitutional symptoms > culture of drainage around exit site obtained, transfer set changed once again, after which flush 10 mL of saline 04/02> post op visit w/ general surgery >> satisfactory 04/03> exit site drainage culture from 04/01 positive for few GNR and for Enterococcal species; pt referred to [facility] ED 04/04 > ES drainage culture growing Enterococcal species and Pseudomonas aeruginosa; pt again with copious drainage around PD catheter despite/after infusing 500 mL abtx/dextrose solution and laying flat x 6hrs 04/05 > PD catheter removed 04/09 first HD treatment after TDC placement same day Peritoneal dialysis catheter infection ESRD on HD Infection of catheter IS NOT related to dialysis; it pre dates dialysis or any flushing of catheter >> infection emerged on cultures taken after no cap on pd catheter noted 5 days after insertion s/p removal of PD catheter on 04/05 Due to increasing BUN and creat, Nephrology recommended HD while inpatient s/p HD catheter insertion on 04/09 and two sessions of HD inpatient on 04/09 and 04/10 Infectious Disease consulted and recommended IV Cefepime and Daptomycin until 04/19/2025 for PD catheter infection Continue calcium acetate Patient is being discharged home with HD scheduled on / at [facility] where she will receive IV antibiotics until 04/19/2025 via HD catheter after HD Home HD training planned for 04/15/2025 *Patient needs CBC with diff, CMP, and CK level checked on Tuesday04/17/2025* Abnormal computed tomography of abdomen and pelvis CTAP noted a 3 x 1.5 cm suspected soft tissue abscess in the anterior abdominal wall-> discussed with General Surgery who advised follow up with outpatient surgeon at [facility] CTAP also noted a right renal mass, could represent an angiomyolipoma and bilateral hypodense renal lesions which could represent proteinaceous or hemorrhagic cysts but are indeterminate in nature-> Nephrology recommending ou tpatient follow up-> renal protocol abdominal CT or MRI with and without contrast could be obtained for further evaluation per report Giant cell arteritis Following with [facility]ology, Dr. Douglas Reyna. S/p right artery biopsy on 02/07/2025 c/w lymphocytic mural inflammation suggestive of early/incipient temporal arteritis Continue prednisone taper, Actemra, atovaquone Gout Continue allopurinol GERD Continue PPI and famotidine Depression/anxiety Continue citalopram Hyperlipidemia Advise holding statin while on daptomycin and resume upon completion of therapy Patient seen in collaboration with Dr. Lunsford. Please see addendum. Notes For Next Care Provider 60 year old female with significant PMH admitted at [facility] from 04/03-04/11/2025 for an infection of her newly placed PD catheter which was removed. Patient started on HD inpatient and will continue outpatient dialysis until training can be done for home HD. Needs IV antibiotics until 04/19/2025 which has been arranged to be administered after HD sessions. Patient will need labs at PCP follow up appointment. Medication Changes From Visit IV Cefepime and Daptomycin until 04/19 Hold statin while on daptomycin Admission HPI Per Admitting Provider Patient is a 60yo dialysis patient who had an infected peritoneal dialysis catheter that was removed due to infection. She now needs a catheter for dialysis Admission Exam Per Admitting Provider General: no distress, obese Head: normocephalic, atraumatic Eyes: conjunctiva non-injected, anicteric ENT: normal inspection external ears, nose, mucous membranes moist Neck: supple, trachea midline, non-tender Lungs: clear, no respiratory distress, no wheezing/rhonchi/rales CV: RRR, no murmur, no pretibial edema Abd: protuberant, +PD cath site with dressing in place, +incision abdomen without erythema, normal BS, soft, non-tender Ext: no cyanosis, no calf tenderness Neuro: A&O x 3, no focal deficits noted, normal affect Skin: warm, dry Discharge Exam General/Psych: obese, sitting up in bed, NAD, conversing easily Head: normocephalic, atraumatic Eyes: normal inspection, PERRL, conjunctivae pink ENT: external ear and nose normal, oropharynx normal Neck: normal visual inspection, trachea midline Respiratory: normal respiratory effort, lungs clear to auscultation, no wheeze/rales/rhonchi, no accessory muscle use Cardiovascular: regular rate and rhythm, no murmur/rub/gallop Chest: HD catheter c/d/i Extremities: no cyanosis or clubbing, normal peripheral pulses, no BLE edema Abdomen/GI: normal bowel sounds, soft, nontender Neurologic/MSK: A+Ox3, motor strength 5/5, moves all extremities Skin: no rashes, normal color, warm and dry, abdomen incision c/d/i Updated Medication List Medication Instructions Recorded Confirmed Type allopurinol 100 mg tablet 200 mg PO DAILY 04/03/25 04/03/25 History atorvastatin 20 mg tablet 20 mg PO DAILY 04/03/25 04/03/25 History atovaquone 750 mg/5 mL oral 1,500 mg PO QAM 04/03/25 04/03/25 History suspension calcium acetate(phosphat bind) 667 1,334 mg PO TIDM 04/03/25 04/03/25 History mg capsule cholecalciferol (vitamin D3) 25 25 mcg PO DAILY 04/03/25 04/03/25 History mcg (1,000 unit) capsule (Vitamin D3) citalopram 40 mg tablet (Celexa) 40 mg PO DAILY 04/03/25 04/03/25 History famotidine 20 mg tablet 20 mg PO Q OTHER DAY 04/03/25 04/03/25 History folic acid 1 mg tablet 1 mg PO DAILY 04/03/25 04/03/25 History gabapentin 300 mg capsule 300 mg PO DAILY 04/03/25 04/03/25 History lansoprazole 30 mg capsule,delayed 30 mg PO DAILYBB 04/03/25 04/03/25 History release (Prevacid) lorazepam 0.5 mg tablet 0.5 mg PO HS PRN Anxiety 04/03/25 04/03/25 History nystatin 100,000 unit/mL oral 5 ml mucous membrane QID 04/03/25 04/03/25 History suspension ondansetron 4 mg disintegrating 4 mg PO Q8H PRN NAUSEA/VOMITING 04/03/25 04/03/25 History tablet prednisone 10 mg tablet 30 mg PO DAILY 04/03/25 04/03/25 History prednisone 5 mg tablet 5 mg PO DAILY 04/03/25 04/03/25 History timolol maleate 0.5 % eye drops 1 drp OPB BID 04/03/25 04/03/25 History tocilizumab 162 mg/0.9 mL 162 mg subcut WK 04/03/25 04/03/25 History subcutaneous pen injector (Actemra ACTPen) torsemide 100 mg tablet 100 mg PO QAM 04/03/25 04/03/25 History Hospital Stay Data Consultations 04/03/25 17:56 ED Decision to Admit Stat 04/03/25 20:45 Consult General Surgery Routine 04/03/25 21:41 Consult Nephrology Routine 04/05/25 11:14 Consult Infectious Diseases Routine 04/08/25 15:42 Consult Vascular Surgery Routine Procedures Performed Operation Date: 04/09/25 10:50 Actual Procedures p Insertion of Perm Cath, Right Internal Jugular Approach, Ultrasound localization of the Right Internal Jugular Vein, Fluoroscopy for Positioning, Moderate Sedation 08:40 - 09:00 - Toby Lopez MD Diagnostic Imagining Performed Chest X-Ray 04/03/25 17:00 Technique: A frontal view of the chest was obtained Findings: There are no confluent pulmonary infiltrates. The heart size is within normal limits. No pleural effusion or pneumothorax is seen. There is no definite pulmonary nodule. No fracture is noted. No foreign body is seen Impression: No active disease Electronically signed by Heriberto Laurent 04-03-2025 6:01 PM Abdomen/Pelvis CT 04/03/25 18:01 Clinical History: Peritoneal dialysis catheter infection Technique: Axial computed tomography images were obtained of the abdomen and pelvis without intravenous contrast. Findings: The liver is overall of normal size, attenuation, and contour with no sign of cirrhosis or significant fatty infiltration. No definite liver mass lesion is seen on this noncontrast study. The gallbladder has been removed. No bile duct dilatation is noted. The spleen is of normal size. No focal splenic lesion is evident. The pancreas appears normal with no sign of acute or chronic pancreatitis and no mass lesion noted. The pancreatic duct is of normal caliber. The adrenal glands appear unremarkable. No renal or proximal ureteral calculi are seen. There is no hydronephrosis or perinephric stranding. There is a 2.5 cm mass of the right kidney that is predominantly soft tissue attenuation but has some fat content, suggestive of an angiomyolipoma. There is a 1.8 cm hyperdense right renal lesion and there is a suspected 2.6 cm hyperdense left renal lesion The aorta is of normal caliber. No abdominal adenopathy is seen. There is a 3 x 1.5 cm collection of fluid and air in the anterior abdominal wall, suggestive of an abscess The stomach appears normal. There is no sign of small bowel obstruction. There is diverticulosis without evidence of diverticulitis. There is no sign of appendicitis. No free intraperitoneal fluid or air is identified. There is a peritoneal dialysis catheter. No distal ureteral or bladder calculi are seen. No obvious bladder mass lesion is evident. The iliac arteries are of normal caliber. No pelvic adenopathy is noted. The uterus has been removed There is a small left pleural effusion. There is subsegmental atelectasis in both lower lobes. Mild thoracolumbar degenerative disc disease is seen. There are apparent old fractures of the inferior pubic rami bilaterally. No focal osseous lesion is seen Impression: 1. 3 x 1.5 cm suspected soft tissue abscess in the anterior abdominal wall 2. Peritoneal dialysis catheter. No ascites or intra-peritoneal fluid collection is seen 3. Right renal mass that may represent an angiomyolipoma. There are also bilateral hyperdense renal lesions that may represent proteinaceous or hemorrhagic cysts but are indeterminate in nature. Renal protocol abdominal CT or MRI with and without contrast could be obtained for further evaluation 4. Diverticulosis without evidence of diverticulitis 5. Small left pleural effusion ACT 112: Positive. There are findings on this exam that require communication between the performing entity and the patient following Patient Test Result Information Act ([place] ACT 112) guidelines. Electronically signed by Heriberto Laurent 04-03-2025 6:41 PM Pending Results Patient Have Any Pending Studies at Discharge: No Discharge Instructions Given to Patient (Per Discharging Provider) You presented to the hospital for an infection of your recently placed peritoneal dialysis catheter. We consulted with Dr. Moreland of Nephrology who recommended removing the PD catheter, which was done on 04/05/2025. We also consulted with Infectious Disease who recommended IV antibiotics until 04/19/2027. Unfortunately, due to rising kidney numbers, it was recommended by Dr. Moreland that you start hemodialysis in the hospital. Your hemodialysis catheter was placed on 04/09/2025. You will continue to do hemodialysis at [facility] on and will receive training for home hemodialysis on 04/13/2025. You will receive your IV antibiotics for the PD catheter infection after dialysis at [facility]. You will need to get labs checked next Tuesday04/17/2025, which can be ordered by your PCP at your appointment on 04/16/2025. MEDICATION CHANGES: IV antibiotics after dialysis at [facility] on // until 04/19/2025 SUMMARY OF TEST RESULTS: Chest x-ray negative CT scan of abdomen and pelvis revealed possible soft tissue abscess vs fluid collection in anterior abdominal wall-> recommend follow up with Dr. Ramiro Cooney CT scan of abdomen and pelvis revealed right renal mass that may be an angiomyolipoma and renal lesions that could be protein or cysts-> recommend follow up with Dr. Gerda Moreland PENDING TEST RESULTS: None RECOMMENDATIONS FOR FOLLOW-UP: Please go to [facility] tomorrow 04/12/2025 at 7:45am for dialysis and IV antibiotics Please follow up with your PCP after hospitalization on 04/16/2025 at 10:20am-> they will need to order labs for 04/17/2025 OTHER INSTRUCTIONS: Seek medical attention if you have: * temperature above 101 * chest pain or trouble breathing * abdominal pain, nausea, vomiting * diarrhea, dark stools or bloody stools * any unanswered questions or concerns Call 911 if symptoms are severe. It has been a pleasure taking care of you. Please take care of yourself. If you have any questions regarding your recent hospitalization please contact [facility] and [facility] [phone]. change dressing daily with dry 1/4" plain nu-gauze, cover with dry 4x4 guaze and medipore tape. change daily until becomes shallow and no longer accommodates the packing. then cover with gauze and tape until skin closed over and no longer leaking any fluid Total Time Total Time Spent Total Time Spent (In Minutes): I spent a total of 35 minutes coordinating, documenting and providing care for this patient excluding time spent in the performance of separately billed services or time spent by another provider/QHP.
[2025-04-12] MEDS ORDERED: DAPTOmycin 800 MG in SYRINGE 0 ML IV SCH (17:00)
[2025-04-15] MEDS ORDERED: DAPTOmycin 500 MG in SYRINGE 0 ML IV SCH (17:00)
== END 2025-04-11 16:59 | disposition home or self-care (01) | DRG 907 ==
LOC: ED 16:49 → 2N 19:01 → INTOOBSV 19:01 → SUATTDRO 19:01 → 2N 21:00